=== PATIENT | male | born 1960 | race Caucasian/White ===

== ENCOUNTER 2023-07-11 12:52 | Emergency (ER) | payer OTHER, MEDICARE ==
[~2023-07-11] VITALS: Ht 172.7 cm; Wt 109.1 kg
[2023-07-11 13:13] LABS: BASOPHILS % (AUTO) 0.6 % (0-1); EOSINOPHILS # (AUTO) 0.1 X10'3 (0-0.9); EOSINOPHILS % (AUTO) 1.3 % (0-6); HEMATOCRIT 39.2 % (42.0-52.0); HEMOGLOBIN 12.9 g/dl (14.0-17.9); LYMPHOCYTES # (AUTO) 1.1 X10'3 (1.1-4.8); LYMPHOCYTES % (AUTO) 13.7 % (21-51); MEAN CORPUSCULAR HEMOGLOBIN 28.2 PG (27.0-31.0); MEAN CORPUSCULAR VOLUME 85.4 FL (78-98); MEAN PLATELET VOLUME 9.9 FL (7.4-10.4); MONOCYTES # (AUTO) 0.8 X10'3 (0-0.9); MONOCYTES % (AUTO) 10.5 % (2-12); NEUTROPHILS % (AUTO) 73.9 % (42-75); PLATELET COUNT 367 X10'3 (140-440); RED BLOOD COUNT 4.59 X10'6 (4.70-6.10); RED CELL DISTRIBUTION WIDTH 15.2 % (11.5-14.5); WHITE BLOOD COUNT 8.1 X10'3 (4.5-11.0)
[2023-07-11 13:32] VITALS: TEMP 98.1
[2023-07-11 14:24] LABS: ALANINE AMINOTRANSFERASE 17 U/L (12-78); ALBUMIN/GLOBULIN RATIO 0.8 (1.1-1.5); ALKALINE PHOSPHATASE 161 IU/L (46-116); ANION GAP 17 (8-16); ASPARTATE AMINO TRANSFERASE 7 U/L (10-37); BILIRUBIN,TOTAL 0.8 MG/DL (0.1-1.0); BLOOD UREA NITROGEN 110 MG/DL (7-18); CALCIUM 8.5 MG/DL (8.5-10.1); CHLORIDE 103 MMOL/L (99-107); CREATININE 7.35 MG/DL (0.60-1.10); GLUCOSE 179 MG/DL (70-104); POTASSIUM 4.3 MMOL/L (3.5-5.1); SODIUM 137 MMOL/L (135-145); TOTAL CARBON DIOXIDE 17.1 MMOL/L (24-32); TOTAL PROTEIN 6.6 G/DL (6.4-8.2); eCRCL 10 ML/MIN; eGFR 8 ML/MIN
[2023-07-11 14:32] LABS: PRO BRAIN NATRIURETIC PEPTIDE 1726 PG/ML (0-125)
[2023-07-11] MEDS ORDERED: normal saline 1000ML IV soln IVB ONE ×2 (16:35→17:10)
[2023-07-11 18:21] VITALS: BP 126/77; PULSE 69; RESP 18; O2SAT 98
[2023-07-11 18:45] LABS: BILIRUBIN,URINE NEGATIVE (Neg); CLARITY,URINE CLEAR (Clear); COLOR,URINE YELLOW (Yellow); GLUCOSE, URINE 250 mg/dl (Neg); KETONES,URINE NEGATIVE (Neg); LEUKOCYTE ESTERASE ,URINE NEGATIVE (Neg); NITRITES, URINE NEGATIVE (Neg); OCCULT BLOOD,URINE TRACE-INTACT (Neg); PH,URINE 5.5 (4.8-8.0); PROTEIN,URINE TRACE mg/dl (Neg); UROBILINOGEN,URINE 0.2 E.U/dL (0.2-1.0)
[2023-07-11 18:50] LABS: UA COLLECTION TYPE CLN CATCH MIDSTREAM
[2023-07-11 18:53] LABS: SQUAMOUS EPITHELIAL CELL,UR NONE SEEN /LPF (FEW)
[2023-07-11 18:56] LABS: WBC,URINE 0-4 /HPF (0-4)
[2023-07-11 19:00] LABS: BACTERIA,URINE FEW /HPF (Neg)
[2023-07-11 19:03] LABS: AMORPHOUS URATES 1+
[2023-07-11 20:11] LABS: ALANINE AMINOTRANSFERASE 17 U/L (12-78); ALBUMIN 3.3 G/DL (3.4-5.0); ALBUMIN/GLOBULIN RATIO 0.8 (1.1-1.5); ALKALINE PHOSPHATASE 173 IU/L (46-116); ANION GAP 19 (8-16); ASPARTATE AMINO TRANSFERASE 10 U/L (10-37); BILIRUBIN,TOTAL 0.6 MG/DL (0.1-1.0); BLOOD UREA NITROGEN 105 MG/DL (7-18); BUN/CREATININE RATIO 15.9 (10.0-20.0); CALCIUM 8.7 MG/DL (8.5-10.1); CHLORIDE 106 MMOL/L (99-107); CREATININE 6.61 MG/DL (0.60-1.10); GLUCOSE 145 MG/DL (70-104); POTASSIUM 4.5 MMOL/L (3.5-5.1); SODIUM 139 MMOL/L (135-145); TOTAL PROTEIN 7.2 G/DL (6.4-8.2); eCRCL 11 ML/MIN; eGFR 9 ML/MIN
[2023-07-11 20:19] LABS: TOTAL CARBON DIOXIDE 14.4 MMOL/L (24-32)
== END 2023-07-11 20:56 | disposition home or self-care (01) ==
LOC: ER 12:52
DX: R42 Dizziness and giddiness (principal); N18.4 Chronic kidney disease, stage 4 (severe); E11.22 Type 2 diabetes mellitus with diabetic chronic kidney disease; D63.1 Anemia in chronic kidney disease
CPT/HCPCS: 36415; 71045; 80053; 81001; 83880; 84484; 85025; 85379; 93005; 96360; 99285; J7030

== ENCOUNTER 2023-07-19 01:00 | Emergency (ER) | payer OTHER, MEDICARE ==
[~2023-07-19] VITALS: Ht 172.7 cm; Wt 100.0 kg
[2023-07-19 01:13] VITALS: TEMP 98.1
[2023-07-19 02:35] VITALS: O2SAT 98
[2023-07-19 03:33] LABS: ALANINE AMINOTRANSFERASE 14 U/L (12-78); ALBUMIN 3.1 G/DL (3.4-5.0); ALBUMIN/GLOBULIN RATIO 0.8 (1.1-1.5); ALKALINE PHOSPHATASE 170 IU/L (46-116); ANION GAP 12 (8-16); ASPARTATE AMINO TRANSFERASE 9 U/L (10-37); BILIRUBIN,TOTAL 0.6 MG/DL (0.1-1.0); BLOOD UREA NITROGEN 43 MG/DL (7-18); BUN/CREATININE RATIO 12.4 (10.0-20.0); CHLORIDE 106 MMOL/L (99-107); CREATININE 3.48 MG/DL (0.60-1.10); GLUCOSE 155 MG/DL (70-104); POTASSIUM 4.1 MMOL/L (3.5-5.1); SODIUM 138 MMOL/L (135-145); TOTAL CARBON DIOXIDE 19.9 MMOL/L (24-32); TOTAL PROTEIN 6.8 G/DL (6.4-8.2); eCRCL 21 ML/MIN; eGFR 18 ML/MIN
[2023-07-19 03:37] LABS: APTT 36 SECONDS (22-32); EOSINOPHILS # (AUTO) 0.2 X10'3 (0-0.9); INR 1.1 INR; MONOCYTES # (AUTO) 0.9 X10'3 (0-0.9); PROTHROMBIN TIME 11.4 SECONDS (9.0-12.0); RED CELL DISTRIBUTION WIDTH 15.4 % (11.5-14.5)
[2023-07-19 03:38] LABS: BASOPHILS # (AUTO) 0.1 X10'3 (0-0.2); BASOPHILS % (AUTO) 1.2 % (0-1); EOSINOPHILS % (AUTO) 2.9 % (0-6); HEMATOCRIT 39.3 % (42.0-52.0); HEMOGLOBIN 12.9 g/dl (14.0-17.9); LYMPHOCYTES # (AUTO) 1.4 X10'3 (1.1-4.8); LYMPHOCYTES % (AUTO) 19.5 % (21-51); MEAN CORPUSCULAR HEMOGLOBIN 28.2 PG (27.0-31.0); MEAN CORPUSCULAR HGB CONC 32.7 g/dL (33.0-36.5); MEAN CORPUSCULAR VOLUME 86.4 FL (78-98); MEAN PLATELET VOLUME 8.8 FL (7.4-10.4); MONOCYTES % (AUTO) 12.3 % (2-12); NEUTROPHILS # (AUTO) 4.8 X10'3 (1.8-7.7); NEUTROPHILS % (AUTO) 64.1 % (42-75); PLATELET COUNT 269 X10'3 (140-440); RED BLOOD COUNT 4.55 X10'6 (4.70-6.10); WHITE BLOOD COUNT 7.4 X10'3 (4.5-11.0)
[2023-07-19 05:00] VITALS: BP 112/57; PULSE 69; RESP 20
== END 2023-07-19 05:52 | disposition home or self-care (01) ==
LOC: ER 01:01
DX: R42 Dizziness and giddiness (principal); H53.8 Other visual disturbances; R53.1 Weakness; R11.0 Nausea; E11.22 Type 2 diabetes mellitus with diabetic chronic kidney disease; N18.4 Chronic kidney disease, stage 4 (severe); F17.200 Nicotine dependence, unspecified, uncomplicated; I69.392 Facial weakness following cerebral infarction; I69.328 Other speech and language deficits following cerebral infarction; Z91.199 Patient's noncompliance with other medical treatment and regimen due to unspecified reason; Z59.00 Homelessness unspecified
CPT/HCPCS: 36415; 70450; 71045; 80053; 84484; 85025; 85610; 85730; 93005; 99285

== ENCOUNTER 2023-07-22 17:11 | Emergency (ER) | payer OTHER, MEDICARE ==
[~2023-07-22] VITALS: Ht 172.7 cm; Wt 100.0 kg
--- NOTE | 2023-07-22 17:17 | NUR ---
Pt brought back to ER overflow by EMT in w/c. Pt is on a 5150 for DTS. Pt has been expressing SI with plan to cut wrists. Pt has been accepted at [facility] but it was too late to tranport him tonight. Pt will be discharged to [facility] once transportation arranged tomorrow.
[2023-07-22] MEDS ORDERED: amlodipine (18:42)
[2023-07-22] MEDS ORDERED: CITA20TA28 PO (18:42)
[2023-07-22] MEDS ORDERED: METO25TA6 PO (18:42)
[2023-07-22] MEDS ORDERED: INSU100V9 SQ (18:42)
[2023-07-22] MEDS ORDERED: CARB-226 OP (18:42)
[2023-07-22] MEDS ORDERED: jardiance PO (18:42)
[2023-07-22] MEDS ORDERED: alogliptin PO (18:42)
[2023-07-22] MEDS ORDERED: BUSP5TAB26 PO (18:42)
[2023-07-22] MEDS ORDERED: APIX5TAB3 PO (18:42)
[2023-07-22] MEDS ORDERED: PANT-47 PO (18:42)
[2023-07-22] MEDS ORDERED: AMLO5TAB16 PO (18:42)
[2023-07-22] MEDS ORDERED: BUPR150T8 PO (18:42)
[2023-07-22] MEDS ORDERED: ATOR80TA PO (18:42)
[2023-07-22] MEDS ORDERED: lisinopril PO (18:42)
--- NOTE | 2023-07-22 19:09 | NUR ---
The patient is a 62 year old male who has been homeless in the community off/on. He is unable to stay the local [address] to be a registered sex offender. He has not been taking his medications as prescribed. He denies substance abuse. He denies psychotic symptoms and none were evident during the assessment. He is suicidal with a plan to use a knife. He feels he has no reason to live. He has multiple medical problems including DM2, HTN, Hx of CVA with left sided paralysis, peripheral neuropathy. He has open wounds to the inner and outer left foot which [facility] He has an wound on his coccyx. He stated that he has irritable bowel syndrome. He reports that he was recently told he had kidney failure. He was very cooperative with the unit routine and staff.
--- NOTE | 2023-07-22 19:24 | NUR ---
PACKET SENT TO [facility]
[2023-07-22 20:08] LABS: BASOPHILS # (AUTO) 0.1 X10'3 (0-0.2); BASOPHILS % (AUTO) 1.2 % (0-1); EOSINOPHILS # (AUTO) 0.2 X10'3 (0-0.9); EOSINOPHILS % (AUTO) 3.2 % (0-6); HEMATOCRIT 39.7 % (42.0-52.0); HEMOGLOBIN 13.1 g/dl (14.0-17.9); LYMPHOCYTES # (AUTO) 1.1 X10'3 (1.1-4.8); LYMPHOCYTES % (AUTO) 19.7 % (21-51); MEAN CORPUSCULAR HEMOGLOBIN 28.2 PG (27.0-31.0); MEAN CORPUSCULAR VOLUME 85.4 FL (78-98); MEAN PLATELET VOLUME 8.3 FL (7.4-10.4); MONOCYTES # (AUTO) 0.6 X10'3 (0-0.9); MONOCYTES % (AUTO) 11.4 % (2-12); NEUTROPHILS # (AUTO) 3.4 X10'3 (1.8-7.7); NEUTROPHILS % (AUTO) 64.5 % (42-75); PLATELET COUNT 295 X10'3 (140-440); RED BLOOD COUNT 4.65 X10'6 (4.70-6.10); RED CELL DISTRIBUTION WIDTH 15.2 % (11.5-14.5); WHITE BLOOD COUNT 5.3 X10'3 (4.5-11.0)
[2023-07-22 20:20] LABS: ALANINE AMINOTRANSFERASE 9 U/L (12-78); ALBUMIN 3.1 G/DL (3.4-5.0); ALBUMIN/GLOBULIN RATIO 0.8 (1.1-1.5); ALKALINE PHOSPHATASE 186 IU/L (46-116); ANION GAP 12 (8-16); ASPARTATE AMINO TRANSFERASE 10 U/L (10-37); BILIRUBIN,TOTAL 0.5 MG/DL (0.1-1.0); BLOOD UREA NITROGEN 41 MG/DL (7-18); BUN/CREATININE RATIO 12.7 (10.0-20.0); CALCIUM 9.5 MG/DL (8.5-10.1); CHLORIDE 105 MMOL/L (99-107); CREATININE 3.22 MG/DL (0.60-1.10); GLUCOSE 187 MG/DL (70-104); POTASSIUM 4.2 MMOL/L (3.5-5.1); SALICYLATE 0.9 MG/DL (4.0-20.0); SODIUM 139 MMOL/L (135-145); TOTAL CARBON DIOXIDE 21.8 MMOL/L (24-32); eCRCL 23 ML/MIN; eGFR 20 ML/MIN
[2023-07-22 20:22] LABS: ACETAMINOPHEN < 2.0 UG/ML (10-30)
[2023-07-22] MEDS ORDERED: PEG 400/HYPROMELLOSE/GLYCERIN 15ml bottle EACHEYE PRN (21:00)
[2023-07-22] MEDS ORDERED: insulin glargine (Lantus) pen - multi-dose SQ SCH (21:00)
[2023-07-22] MEDS ORDERED: atorvastatin 20mg tablet PO SCH (21:04)
[2023-07-22] MEDS: metoprolol tartrate 50mg tablet PO SCH (21:06)
[2023-07-22] MEDS: amLODIPine 5mg tablet PO SCH (21:08)
[2023-07-22] MEDS: apixaban 5mg tablet PO SCH (21:23)
[2023-07-22] MEDS: busPIRone 5mg tablet PO SCH (21:23)
--- NOTE | 2023-07-22 21:57 | NUR ---
PACKET SENT TO [facility]
--- NOTE | 2023-07-22 21:58 | NUR ---
The patient is resting on his bed and has been pleasant and cooperative. HS snack given
[2023-07-22 22:27] LABS: URINE AMPHETAMINE SCREEN NEGATIVE (Neg); URINE BARBITUATE SCREEN NEGATIVE (Neg); URINE BENZODIAZEPINES SCREEN NEGATIVE (Neg); URINE CANNABINOID SCREEN NEGATIVE (Neg); URINE COCAINE SCREEN NEGATIVE (Neg); URINE METHADONE SCREEN NEGATIVE (Neg); URINE OPIATE SCREEN NEGATIVE (Neg); URINE PHENCYCLIDINE SCREEN NEGATIVE (Neg)
--- NOTE | 2023-07-22 22:55 | NUR ---
The patient appears to be sleeping
--- NOTE | 2023-07-23 00:45 | NUR ---
The patient appears to be sleeping
--- NOTE | 2023-07-23 03:00 | NUR ---
The patient appears to be sleeping
--- NOTE | 2023-07-23 05:20 | NUR ---
The patient appears to be sleeping
--- NOTE | 2023-07-23 05:32 | NUR ---
AM accucheck 172
[2023-07-23] MEDS ORDERED: pantoprazole 40mg Tablet.DR PO SCH (07:30)
--- NOTE | 2023-07-23 07:39 | NUR ---
Pt. resting on his left side, noted rise and fall of chest.
[2023-07-23] MEDS ORDERED: ALOGLIPTIN 12.5 MG PO SCH ×2 (08:00)
[2023-07-23] MEDS ORDERED: lisinopril 10 MG tablet PO SCH (08:00)
[2023-07-23] MEDS ORDERED: citalopram 20mg tablet PO SCH (08:00)
[2023-07-23] MEDS ORDERED: amLODIPine 5mg tablet PO SCH (08:00)
[2023-07-23] MEDS ORDERED: buPROPion SR 150mg tablet PO SCH (08:00)
[2023-07-23] MEDS ORDERED: EMPAGLIFLOZIN 25 MG TABLET PO SCH (08:00)
[2023-07-23] MEDS: busPIRone 5mg tablet PO SCH ×2 (08:28→12:48)
[2023-07-23] MEDS: apixaban 5mg tablet PO SCH (08:28)
[2023-07-23] MEDS: amLODIPine 5mg tablet PO SCH (08:30)
[2023-07-23] MEDS: metoprolol tartrate 50mg tablet PO SCH (08:30)
[2023-07-23 08:31] VITALS: BP 119/85; PULSE 85; TEMP 97.3; O2SAT 96
--- NOTE | 2023-07-23 09:08 | NUR ---
Pt eating breakfast at his bedside. No acute distess noted.
--- NOTE | 2023-07-23 09:09 | NUR ---
Mario Alberto from [place] [facility] called and declined pt, pt. not medically appropriate for their facility.
[2023-07-23 09:25] VITALS: RESP 16
--- NOTE | 2023-07-23 09:56 | NUR ---
1:1 done at bedside, pt denies SI at this time. Pt denies A/VH. Pt. pleasant and cooperative. Pt has several wounds to his body. Open wounds to his right foot, dressings in place. Order for a wound care consult has been placed. Pt ate all of his breakfast.
--- NOTE | 2023-07-23 12:00 | NUR ---
Pt eating lunch at bedside. No acute distress noted.
--- NOTE | 2023-07-23 12:30 | NUR ---
Pt being evaluated by [facility] at bedside.
--- NOTE | 2023-07-23 13:22 | NUR ---
Pt. hold is being released, pt. will be discharging.
--- NOTE | 2023-07-23 15:37 | NUR ---
Pt. watching tv at bedside, awaiting discharge paperwork.
--- NOTE | 2023-07-23 16:50 | NUR ---
Pt watching tv at bedside, awaiting cab.
== END 2023-07-23 17:15 | disposition still patient (30) ==
LOC: ER 17:12
DX: R45.851 Suicidal ideations (principal); N18.9 Chronic kidney disease, unspecified
CPT/HCPCS: 36415; 80053; 80305; 80329; 82948; 85025; 96372; 99285; J1815; A6212

== ENCOUNTER 2023-08-06 16:35 | Inpatient (IN) | payer OTHER, MEDICARE ==
[~2023-08-06] VITALS: Ht 172.7 cm; Wt 94.4 kg
[~2023-08-06 16:35] MED LIST: AMLO5TAB16 PO; APIX5TAB3 PO; ATOR80TA PO; BUPR150T8 PO; BUSP5TAB26 PO; CARB-226 OP; CITA20TA28 PO; INSU100V9 SQ; METO25TA6 PO; PANT-47 PO; alogliptin PO; jardiance PO; lisinopril PO
[2023-08-06 17:17] LABS: BASOPHILS # (AUTO) 0.1 X10'3 (0-0.2); EOSINOPHILS # (AUTO) 0.2 X10'3 (0-0.9)
[2023-08-06 17:18] LABS: BASOPHILS % (AUTO) 1.7 % (0-1); EOSINOPHILS % (AUTO) 3.1 % (0-6); HEMATOCRIT 40.2 % (42.0-52.0); LYMPHOCYTES % (AUTO) 18.6 % (21-51); MEAN CORPUSCULAR HEMOGLOBIN 27.7 PG (27.0-31.0); MEAN CORPUSCULAR HGB CONC 32.4 g/dL (33.0-36.5); MEAN CORPUSCULAR VOLUME 85.5 FL (78-98); MEAN PLATELET VOLUME 8.5 FL (7.4-10.4); MONOCYTES # (AUTO) 0.6 X10'3 (0-0.9); MONOCYTES % (AUTO) 10.5 % (2-12); NEUTROPHILS # (AUTO) 3.5 X10'3 (1.8-7.7); NEUTROPHILS % (AUTO) 66.1 % (42-75); PLATELET COUNT 308 X10'3 (140-440); WHITE BLOOD COUNT 5.3 X10'3 (4.5-11.0)
[2023-08-06 17:25] LABS: ALANINE AMINOTRANSFERASE 18 U/L (12-78); ALBUMIN 3.2 G/DL (3.4-5.0); ALBUMIN/GLOBULIN RATIO 0.9 (1.1-1.5); ALKALINE PHOSPHATASE 160 IU/L (46-116); ANION GAP 13 (8-16); ASPARTATE AMINO TRANSFERASE 12 U/L (10-37); BILIRUBIN,TOTAL 0.5 MG/DL (0.1-1.0); BLOOD UREA NITROGEN 41 MG/DL (7-18); BUN/CREATININE RATIO 9.7 (10.0-20.0); CHLORIDE 104 MMOL/L (99-107); CREATININE 4.24 MG/DL (0.60-1.10); ETHANOL < 10 MG/DL (<10); GLUCOSE 223 MG/DL (70-104); POTASSIUM 3.8 MMOL/L (3.5-5.1); SODIUM 138 MMOL/L (135-145); TOTAL CARBON DIOXIDE 21.1 MMOL/L (24-32); TOTAL PROTEIN 6.9 G/DL (6.4-8.2); eCRCL 17 ML/MIN; eGFR 14 ML/MIN
--- NOTE | 2023-08-06 19:35 | NUR ---
Patient eating dinner. No distress observed. Continue to monitor.
--- NOTE | 2023-08-06 21:07 | NUR ---
Patient sleeping on left side. No distress observed. Nonlabored respirations. Continue to monitor.
[2023-08-06] MEDS ORDERED: LISI10TA27 PO (21:26)
[2023-08-06] MEDS ORDERED: ALOG12.52 PO (21:26)
[2023-08-06] MEDS ORDERED: APIX5TAB3 PO (21:26)
[2023-08-06] MEDS ORDERED: EMPA25TA PO (22:14)
--- NOTE | 2023-08-06 23:19 | NUR ---
Patient sleeping supine with snoring respirations. No distress observed. Still pending a urine sample. Continue to monitor.
--- NOTE | 2023-08-06 23:31 | NUR ---
Dr Blake evaluating patient. No distress observed. Continue to monitor.
--- NOTE | 2023-08-07 01:03 | NUR ---
Patient re-adjusting in bed. No distress observed. Continue to monitor.
--- NOTE | 2023-08-07 02:36 | NUR ---
Patient sleeping supine. Respirations equal and nonlabored. No distress observed. Continue to monitor.
--- NOTE | 2023-08-07 04:28 | NUR ---
Patient continues to sleep. No distress observed. Continue to monitor.
--- NOTE | 2023-08-07 06:02 | NUR ---
Patient woke for vitals, then said he's not ready to stay awake yet.
[2023-08-07] MEDS: busPIRone 5mg tablet PO SCH ×3 (07:55→20:18)
[2023-08-07] MEDS: amLODIPine 5mg tablet PO SCH ×2 (07:56→20:18)
[2023-08-07] MEDS: lisinopril 10 MG tablet PO SCH (07:57)
[2023-08-07] MEDS: citalopram 20mg tablet PO SCH ×2 (07:57→20:18)
[2023-08-07] MEDS: pantoprazole 40mg Tablet.DR PO SCH (07:58)
[2023-08-07] MEDS: buPROPion SR 150mg tablet PO SCH ×2 (07:58→20:17)
[2023-08-07] MEDS: EMPAGLIFLOZIN 25 MG TABLET PO SCH (07:58)
[2023-08-07] MEDS: metoprolol tartrate 50mg tablet PO SCH ×2 (07:59→20:18)
[2023-08-07] MEDS: apixaban 5mg tablet PO SCH ×2 (07:59→20:17)
[2023-08-07] MEDS: linagliptin 5mg tablet PO SCH (08:18)
--- NOTE | 2023-08-07 08:36 | NUR ---
Patient awake and eating his breakfast meal.
[2023-08-07 08:57] LABS: URINE AMPHETAMINE SCREEN NEGATIVE (Neg); URINE BARBITUATE SCREEN NEGATIVE (Neg); URINE BENZODIAZEPINES SCREEN NEGATIVE (Neg); URINE CANNABINOID SCREEN NEGATIVE (Neg); URINE COCAINE SCREEN NEGATIVE (Neg); URINE METHADONE SCREEN NEGATIVE (Neg); URINE OPIATE SCREEN NEGATIVE (Neg); URINE PHENCYCLIDINE SCREEN NEGATIVE (Neg)
--- NOTE | 2023-08-07 09:06 | NUR ---
Patient using the [facility] call the [facility].
[2023-08-07 09:15] LABS: BILIRUBIN,URINE NEGATIVE (Neg); CLARITY,URINE CLEAR (Clear); COLOR,URINE YELLOW (Yellow); GLUCOSE, URINE >=1000 mg/dl (Neg); KETONES,URINE NEGATIVE (Neg); LEUKOCYTE ESTERASE ,URINE NEGATIVE (Neg); NITRITES, URINE NEGATIVE (Neg); OCCULT BLOOD,URINE NEGATIVE (Neg); PROTEIN,URINE 100 mg/dl (Neg); UROBILINOGEN,URINE 0.2 E.U/dL (0.2-1.0)
[2023-08-07 09:32] LABS: UA COLLECTION TYPE CLN CATCH MIDSTREAM
[2023-08-07 09:34] LABS: BACTERIA,URINE FEW /HPF (Neg); RBC,URINE NONE SEEN /HPF (0-2); SQUAMOUS EPITHELIAL CELL,UR FEW /LPF (FEW); WBC,URINE 0-4 /HPF (0-4)
--- NOTE | 2023-08-07 09:38 | NUR ---
Packet sent to [facility].
--- NOTE | 2023-08-07 10:35 | NUR ---
Patient being evaluated by [facility].
--- NOTE | 2023-08-07 12:14 | NUR ---
Patient eating his lunch meal. Denies needs. No s/sx of distress.
--- NOTE | 2023-08-07 14:12 | NUR ---
Patient has been accepted to [facility].
--- NOTE | 2023-08-07 16:18 | NUR ---
Admission Note: Pt. was admitted from the ER, transferred in a wheelchair. Pt. is on a 5150 for DTS. Per 5150: You state you are better off and are hopeless to see any other solutions in your life. Pt. scores as a high risk on the [place] Suicide Risk Assessment, but is able to contract for safety while on the unit. This was endorsed to KUSUM Wilcox and Q15min safety checks were ordered. Pt. exhibits weakness and uses a w/c, however he is able to transfer independently, fall precautions are in place. He also wears a brace to his right leg. Pt. is a diabetic and ACHS Accuchecks were ordered. Pt. has wounds, pictures taken and are in chart,and wound care consult was ordered.
[2023-08-07 16:45] VITALS: BP 115/73; PULSE 66; RESP 18; TEMP 97.5; O2SAT 98
[2023-08-07] MEDS ORDERED: mag hydrox/Alum hydrox/simeth 30ml oral suspension PO PRN (16:45)
[2023-08-07] MEDS ORDERED: magnesium hydroxide 30ml (MOM) UD suspension PO PRN (16:45)
[2023-08-07] MEDS ORDERED: loperamide 2mg capsule PO PRN (16:45)
[2023-08-07] MEDS ORDERED: acetaminophen 325mg tablet PO PRN ×2 (16:45)
[2023-08-07 16:47] VITALS: RESP 18; O2SAT 98
[2023-08-07] MEDS ORDERED: NICOTINE POLACRILEX 2 MG LOZENGE BC PRN (17:45)
[2023-08-07] MEDS ORDERED: insulin Lispro (HumaLOG) vial - multi-dose SQ SCH (18:10)
[2023-08-07] MEDS ORDERED: glucagon, human recombinant 1mg kit SUBCUT PRN (18:10)
[2023-08-07] MEDS ORDERED: dextrose 50%-water 50ml dispensing syringe IV PRN ×2 (18:10)
[2023-08-07] MEDS ORDERED: DEXTROSE 15 GM of carb/4 tabs (each vial/BOTTLE has 4 tablets) PO PRN ×2 (18:10)
[2023-08-07 19:45] VITALS: BP 121/79; PULSE 71; RESP 18; TEMP 98; O2SAT 98
[2023-08-07] MEDS: atorvastatin 20mg tablet PO SCH (20:18)
[2023-08-07] MEDS ORDERED: insulin glargine (Lantus) pen - multi-dose SQ SCH (21:00)
--- NOTE | 2023-08-08 00:31 | NUR ---
NURSING PROGRESS NOTE: Nghia Problem: Pt. was admitted from the ER, transferred in a wheelchair. Pt. is on a 5150 for DTS. Per 5150: You state you are better off and are hopeless to see any other solutions in your life. Pt. scores as a high risk on the [place] Suicide Risk Assessment, but is able to contract for safety while on the unit. Pt. exhibits weakness and uses a w/c, however he is able to transfer independently, fall precautions are in place. He also wears a brace to his right leg. Pt. is a diabetic and ACHS Accuchecks were ordered. Interventions: 1:1 assessment, therapeutic conversation, active listening, medication administration/education/monitoring, behavior monitoring and intervention as needed; provided distraction, redirection, positive reinforcement, reality orientation, gave PRN medication, and maintained Q15 minute safety checks. Response: Received pt. in his room at change of shift sitting in his wheelchair. Pt is cooperative and friendly. He states he had a terrible time while downstairs in ER overflow with no windows and no one to talk to. He states his mood is better now that he is up on our unit. His depression is mild and denies SI. He states he has IBS so he needs to be close to the bathroom. He states after he eats he usually has loose stools but thought it might be because he is homeless. Pt took all HS medications, AC BG was 157. Pt had a snack and watched TV in dining room before going to bed. Pt appears restless. Plan: Patient needing medication adjustments in a safe environment.
[2023-08-08] MEDS: citalopram 20mg tablet PO SCH ×2 (07:50→20:57)
[2023-08-08] MEDS: buPROPion SR 150mg tablet PO SCH ×2 (07:50→20:57)
[2023-08-08] MEDS: busPIRone 5mg tablet PO SCH ×3 (07:50→20:58)
[2023-08-08] MEDS: apixaban 5mg tablet PO SCH ×2 (07:50→20:57)
[2023-08-08] MEDS: nicotine 14mg patch - 24hr TD SCH (07:53)
[2023-08-08 08:00] VITALS: BP 97/65; PULSE 74; RESP 12; TEMP 97.1; O2SAT 98
[2023-08-08] MEDS: amLODIPine 5mg tablet PO SCH ×2 (08:00→20:57)
[2023-08-08] MEDS: linagliptin 5mg tablet PO SCH (08:00)
[2023-08-08] MEDS: metoprolol tartrate 50mg tablet PO SCH ×2 (08:00→20:58)
[2023-08-08] MEDS: pantoprazole 40mg Tablet.DR PO SCH (08:00)
[2023-08-08] MEDS: lisinopril 10 MG tablet PO SCH (08:00)
[2023-08-08] MEDS: EMPAGLIFLOZIN 25 MG TABLET PO SCH (08:02)
[2023-08-08 08:50] LABS: CHOL/HDL RATIO 2.1 (0.00-4.99); CHOLESTEROL 78 MG/DL (0-200); HDL CHOLESTEROL 38 MG/DL (35-60); LDL CHOLESTEROL 22 MG/DL (50-100); TRIGLYCERIDES 121 MG/DL (20-135)
[2023-08-08 09:07] LABS: HEMOGLOBIN A1C 9.1 % (4.5-6.2)
--- NOTE | 2023-08-08 09:47 | NUR ---
AMBER Soria, [facility] social work professor (ph# [phone]), called to see how Nghia is doing. She reported he is currently 20% service connected and is NOT able to utilize [facility] for terminal clerk care or rehab. She reported his [facility] doctor is concerned he may need a SNF or some sort of rehab upon discharge. Estella suggested assisting Nghia with applying for [facility] while he is at [facility]. Explained that patients don't typically discharge from [facility] to a SNF. Estella reported Nghia may be able to utilize services with [facility]. Faxed requested records to Estella. Fax# [phone] KEMAR Duncan
--- NOTE | 2023-08-08 12:03 | NUR ---
DM/malnutrition consults: Per EMR pt with T2DM, current A1c 9.1%. Pt admit for depression and SI, DM education not appropriate at this time. Pt reports 14-23 lb wt loss with decreased appetite/PO intake per malnutrition risk screen with RN. No reliable wt hx in EMR and current scaled weight is 134% IBW. Pt on a CHO controlled diet and overall eating well, documented with 100% PO intake of first three meals though refused breakfast this morning. Per EMR pt participates in snacks. Noted pt with 100% PO intake at recent visit 07/22. Pt with no documented significant decrease in muscle strength or edema. Pt appears well developed well nourished per ED report. Pt currently lacks a minimum of two criteria for malnutrition though will continue to follow and monitor s/s of malnutrition. Addendum: 08/08/23 at [address] Amended: Links added.
--- NOTE | 2023-08-08 13:24 | NUR ---
Left message with Parallon 0620 to see if [facility] can help patient sign up for Medical.
--- NOTE | 2023-08-08 16:41 | NUR ---
PRESSURE ULCER EDUCATION: DEFINITION: A pressure ulcer is an area of skin that breaks down when you stay in one position too long. The constant pressure against the skin reduces the blood flow to that area and the affected tissue dies. CAUSES: "Being bedridden or in a wheelchair "Fragile skin "Having a chronic condition, such as diabetes or vascular disease "Inability to move certain parts of your body without assistance "Older age "Incontinence of urine or stool SYMPTOMS: "A reddened area that DOES NOT turn white when pressed on - this can be the beginning of a pressure ulcer "A blister, deep sore or a crater - these can be advanced pressure ulcers FIRST AID: "Relieve the pressure on this area "Keep the area clean and dry "Call your primary doctor if you see any of the above symptoms "DO NOT massage the area "DO NOT use a donut shaped or ring shaped pillow- these actually interfere with the blood flow and cause complications PREVENTION: "Check for pressure ulcers everyday "Change position at least every two hours to relieve pressure "Use items that help relieve pressure- pillows, sheepskin, foam padding, and powders. "Keep skin clean and dry "Eat healthy well balanced meals "Exercise daily IF YOU SEE ANY OF THESE SYMPTOMS WHILE IN THE HOSPITAL - TELL YOUR NURSE IMMEDIATELY. IF YOU SEE ANY OF THESE SYMPTOMS WHILE AT HOME OR HAVE ANY QUESTIONS OR CONCERNS ABOUT PRESSURE ULCERS - CALL YOUR PRIMARY DOCTOR IMMEDIATELY. Addendum: 08/08/23 at 1641 by Jes Benavides LVN Amended: Links added.
--- NOTE | 2023-08-08 17:10 | NUR ---
NURSING PROGRESS NOTE: Problem: Pt. was admitted from the ER, transferred in a wheelchair. Pt. is on a 5150 for DTS. Per 5150: You state you are better off and are hopeless to see any other solutions in your life. Pt. scores as a high risk on the [place] Suicide Risk Assessment, but is able to contract for safety while on the unit. Pt. exhibits weakness and uses a w/c, however he is able to transfer independently, and fall precautions are in place. He also wears a brace to his right leg. Pt. is a diabetic and ACHS Accuchecks were ordered. Interventions: 1:1 assessment, therapeutic conversation, active listening, medication administration/education/monitoring, behavior monitoring and intervention as needed; provided distraction, redirection, positive reinforcement, reality orientation, and maintained Q15 minute safety checks. Response: 0600 Received pt. care report from [facility]. Pt awake and alert. He reports sleeping well last night. Pt. denies SI and mild depression reported. Pt. ate all his breakfast and lunch meals and participated in snacks and cooperative with all the care. Wound care nurse in to see pt. for f/u- new orders in place. Pt. reported brought to the ER 3 bags which contained all his belongings which we do not have them on our floor nor on the pt. inventory list. Called the ER overflow but nothing was found; [facility] aware. Notified the pt. that we will continue looking. Pt. stated, I will be without them; that is all I have. We need to follow up please BS 188mg/dl AM and 195mg/dl at noon, and 1700 191mg/dl. No hypoglycemic episodes this shift. Plan: Patient needing medication adjustments in a safe environment.
--- NOTE | 2023-08-08 17:42 | NUR ---
Held all antihypertensives this shift- KUSUM Dickens aware; states will adjust!
[2023-08-08 19:00] VITALS: RESP 16; O2SAT 99
[2023-08-08 20:00] VITALS: BP 115/67; PULSE 60; RESP 16; TEMP 97.8; O2SAT 99
[2023-08-08] MEDS: atorvastatin 20mg tablet PO SCH (20:57)
--- NOTE | 2023-08-09 00:22 | NUR ---
NURSING PROGRESS NOTE: Problem: Pt. was admitted from the ER, transferred in a wheelchair. Pt. is on a 5150 for DTS. Per 5150: You state you are better off and are hopeless to see any other solutions in your life. Pt. scores as a high risk on the [place] Suicide Risk Assessment, but is able to contract for safety while on the unit. Pt. exhibits weakness and uses a w/c, however he is able to transfer independently, and fall precautions are in place. He also wears a brace to his right leg. Pt. is a diabetic and ACHS Accuchecks were ordered. Interventions: 1:1 assessment, therapeutic conversation, active listening, medication administration/education/monitoring, behavior monitoring and intervention as needed; provided distraction, redirection, positive reinforcement, reality orientation, and maintained Q15 minute safety checks. Response: Received pt in the day room. Pt was playing Solitaire, smiling, appears happy, calm and cooperative. Pt's blood glucose is 196. No coverage needed. Pt denies all mental health symptoms at this time. Pt is medication compliant with no PRN's given. Pt uses his wheelchair d/t left side weakness from a stroke. Pt is able to transfer on his own. No behavioral issues tonight. Monitor for safety. Plan: Patient needing medication adjustments in a safe environment.
[2023-08-09 08:00] VITALS: BP 123/64; PULSE 60; RESP 18; TEMP 97.9; O2SAT 99
[2023-08-09] MEDS: busPIRone 5mg tablet PO SCH ×2 (08:15→12:31)
[2023-08-09] MEDS: apixaban 5mg tablet PO SCH ×2 (08:15→20:32)
[2023-08-09] MEDS: linagliptin 5mg tablet PO SCH (08:15)
[2023-08-09] MEDS: citalopram 20mg tablet PO SCH ×2 (08:15→20:32)
[2023-08-09] MEDS: metoprolol tartrate 50mg tablet PO SCH ×2 (08:16→20:33)
[2023-08-09] MEDS: buPROPion SR 150mg tablet PO SCH ×2 (08:16→20:32)
[2023-08-09] MEDS: pantoprazole 40mg Tablet.DR PO SCH (08:17)
[2023-08-09] MEDS: amLODIPine 5mg tablet PO SCH (08:17)
[2023-08-09] MEDS: lisinopril 10 MG tablet PO SCH (08:18)
[2023-08-09] MEDS: EMPAGLIFLOZIN 25 MG TABLET PO SCH (08:19)
[2023-08-09] MEDS: nicotine 14mg patch - 24hr TD SCH (08:19)
--- NOTE | 2023-08-09 09:02 | NUR ---
Initial: Pt admit for depression and SI. Pt seen by wound care, per note pt with an abrasion to the medial aspect of the right great toe with scabbing, a DFU to left medial 1st metatarsal head, and a stage II PI to left lateral malleolus. Pt continues on a CHO controlled diet and overall eating well, documented with average 98% PO intake of five meals with refusal of breakfast 08/08. Per EMR pt participates in snacks. Current PO intake is meeting estimated nutrient needs though pt may benefit from Jon ALLA BID to assist with wound healing, to be sent pending physician approval in EMR. LBM 08/08 per EMR. Will continue to follow and monitor need for further nutrition intervention. Recommendations: 1) Continue CHO controlled diet 2) Michael fernández BIDLD to assist with wound healing, pending physician approval in EMR 3) Bowel care PRN 4) Weekly scaled weights Addendum: 08/09/23 at [address] Amended: Links added.
[2023-08-09 14:40] LABS: THYROID STIMULATING HORMONE 0.79 ulU/ml (0.34-4.50)
[2023-08-09 15:44] LABS: HBSAG SCREEN Negative (Negative); HEP B CORE AB, IGM Negative (Negative); HEP B CORE AB, TOT Negative (Negative)
--- NOTE | 2023-08-09 16:23 | NUR ---
NURSING PROGRESS NOTE: Problem: Pt. is on a 5150 for DTS. Per 5150: You state you are better off and are hopeless to see any other solutions in your life. Interventions: Maintained a safe and supportive environment, provided clear and simple instructions, medication administration/education/monitoring, monitored behaviors and need for intervention, and maintained Q15 minute safety checks. Response: Received pt. sleeping in his room. Compliant with treatment; meds and wound care. Pt. denies SI/HI. Pt. reported brought to the ER 3 bags which contained all his belongings which we do not have them on our floor nor on the pt. inventory list. Went to the main ER and found pt's belongings in the Ambulance bay with no stickers on them. Pt acknowledges these are his belongings. NOELLE Fontaine and Eric DRAKE inventoried property and placed in pt storage. Pt showered. Plan: Patient needing medication adjustments in a safe environment. Addendum: 08/09/23 at 1722 by Samara Jesus RN Pt does not want to go on insulin at this time due to being homeless.
[2023-08-09 19:00] VITALS: RESP 18; O2SAT 98
[2023-08-09 19:44] VITALS: BP 118/70; PULSE 71; RESP 18; TEMP 97.1; O2SAT 98
[2023-08-09] MEDS: atorvastatin 20mg tablet PO SCH (20:32)
[2023-08-09] MEDS: insulin glargine (Lantus) pen - multi-dose SQ SCH (20:37)
--- NOTE | 2023-08-10 03:41 | NUR ---
NURSING PROGRESS NOTE: Problem: Pt. was admitted from the ER, transferred in a wheelchair. Pt. is on a 5150 for DTS. Per 5150: You state you are better off and are hopeless to see any other solutions in your life. Pt. scores as a high risk on the [place] Suicide Risk Assessment, but is able to contract for safety while on the unit. Pt. exhibits weakness and uses a w/c, however he is able to transfer independently, and fall precautions are in place. He also wears a brace to his right leg. Pt. is a diabetic and ACHS Accuchecks were ordered. Interventions: 1:1 assessment, therapeutic conversation, active listening, medication administration/education/monitoring, behavior monitoring and intervention as needed; provided distraction, redirection, positive reinforcement, reality orientation, and maintained Q15 minute safety checks. Response: Received pt in the day room, pt is in his wheelchair. Pts mood is good, pleasant to talk to and cooperative with treatments. Blood glucose is 186 tonight. Pt took all his HS medications and received 5 units of Lantus. Pt denies SI/HI/AVH. Pt is visible on unit, interacts well with other peers. Pt eats low carb snacks. Pts wounds on his left foot had his dressing changed. No complaints. Monitor for safety. Plan: Patient needing medication adjustments in a safe environment.
[2023-08-10 07:00] VITALS: RESP 16; O2SAT 99
[2023-08-10] MEDS: pantoprazole 40mg Tablet.DR PO SCH (07:35)
[2023-08-10] MEDS: EMPAGLIFLOZIN 25 MG TABLET PO SCH (07:35)
[2023-08-10] MEDS: apixaban 5mg tablet PO SCH ×2 (07:36→20:55)
[2023-08-10] MEDS: lisinopril 10 MG tablet PO SCH (07:36)
[2023-08-10] MEDS: buPROPion SR 150mg tablet PO SCH ×2 (07:37→20:54)
[2023-08-10] MEDS: linagliptin 5mg tablet PO SCH (07:37)
[2023-08-10] MEDS: metoprolol tartrate 50mg tablet PO SCH ×2 (07:37→20:57)
[2023-08-10] MEDS: citalopram 20mg tablet PO SCH ×2 (07:37→20:55)
[2023-08-10] MEDS: nicotine 14mg patch - 24hr TD SCH ×2 (07:38→07:45)
[2023-08-10 08:00] VITALS: BP 105/62; PULSE 83; RESP 16; TEMP 96.8; O2SAT 99
[2023-08-10 11:26] LABS: ALANINE AMINOTRANSFERASE 14 U/L (12-78); ALBUMIN 3.2 G/DL (3.4-5.0); ALBUMIN/GLOBULIN RATIO 0.9 (1.1-1.5); ALKALINE PHOSPHATASE 152 IU/L (46-116); ANION GAP 11 (8-16); ASPARTATE AMINO TRANSFERASE 11 U/L (10-37); BILIRUBIN,TOTAL 0.4 MG/DL (0.1-1.0); BLOOD UREA NITROGEN 42 MG/DL (7-18); BUN/CREATININE RATIO 13.3 (10.0-20.0); CALCIUM 9.3 MG/DL (8.5-10.1); CHLORIDE 105 MMOL/L (99-107); CREATININE 3.16 MG/DL (0.60-1.10); GLUCOSE 179 MG/DL (70-104); POTASSIUM 4.8 MMOL/L (3.5-5.1); SODIUM 139 MMOL/L (135-145); TOTAL CARBON DIOXIDE 23.5 MMOL/L (24-32); TOTAL PROTEIN 6.8 G/DL (6.4-8.2); eCRCL 23 ML/MIN; eGFR 20 ML/MIN
--- NOTE | 2023-08-10 17:38 | NUR ---
NURSING PROGRESS NOTE: Nghia Problem: Pt. is on a 5150 for DTS. Per 5150: You state you are better off and are hopeless to see any other solutions in your life. Interventions: Maintained a safe and supportive environment, provided clear and simple instructions, medication administration/education/monitoring, monitored behaviors and need for intervention, and maintained Q15 minute safety checks. Response: Received pt awake in his room talking with his roommate. Pt took morning medications cooperatively and ate breakfast in the community room. Pt had an EKG performed this am, awaiting results. Performed wound care per orders this am and applied lotion to pt's arms and legs. Pt calm and cooperative, joking around with this RN. Pt observed watching football with roommate in the community room. Performed 1:1 bedside. Pt denies SI/HI and AVH. Pt participated in snacks. Pt ate lunch in the community room. Observed pt reading in his room. Unable to take pts wound picture today, will take tomorrow with dressing change. Pt napped intermittently throughout the day. BG ac readings: 161, 135, and 141. Plan: Patient needing medication adjustments in a safe environment.
[2023-08-10 20:20] VITALS: BP 124/73; PULSE 76; RESP 16; TEMP 96.5; O2SAT 100
[2023-08-10] MEDS: atorvastatin 20mg tablet PO SCH (20:55)
[2023-08-10] MEDS: insulin glargine (Lantus) pen - multi-dose SQ SCH (20:59)
--- NOTE | 2023-08-10 23:21 | NUR ---
NURSING PROGRESS NOTE: Nghia Problem: Pt. is on a 5150 for DTS. Per 5150: You state you are better off and are hopeless to see any other solutions in your life. Interventions: Maintained a safe and supportive environment, provided clear and simple instructions, medication administration/education/monitoring, monitored behaviors and need for intervention, and maintained Q15 minute safety checks. Response: Received pt sitting in the dining room watching TV with peers. Pt pleasant and cooperative. States he is OK and just doing the best he can, denies MH symptoms. (States he is mostly depressed.) Pt accepted all treatments; BG was 221 this evening, pt received 5 units of Lantus. Pt remained in dining room through snack time. Pt appears to be sleeping, will continue to monitor. Plan: Patient needing medication adjustments in a safe environment.
[2023-08-11 07:00] VITALS: RESP 18; O2SAT 98
[2023-08-11] MEDS: EMPAGLIFLOZIN 25 MG TABLET PO SCH (07:35)
[2023-08-11] MEDS: linagliptin 5mg tablet PO SCH (07:36)
[2023-08-11] MEDS: citalopram 20mg tablet PO SCH ×2 (07:36→21:17)
[2023-08-11] MEDS: buPROPion SR 150mg tablet PO SCH ×2 (07:36→21:19)
[2023-08-11] MEDS: lisinopril 10 MG tablet PO SCH (07:37)
[2023-08-11] MEDS: metoprolol tartrate 50mg tablet PO SCH ×2 (07:37→21:20)
[2023-08-11] MEDS: pantoprazole 40mg Tablet.DR PO SCH (07:38)
[2023-08-11] MEDS: apixaban 5mg tablet PO SCH ×2 (07:38→21:18)
[2023-08-11] MEDS: nicotine 14mg patch - 24hr TD SCH (07:48)
[2023-08-11 08:00] VITALS: BP 125/79; PULSE 71; RESP 18; TEMP 97.1; O2SAT 98
--- NOTE | 2023-08-11 14:39 | NUR ---
[facility] Spoke to Levon at [facility] (ph# [phone]). He reported Nghia needs to call or check in in person at least once a week. He reported they currently do not have any rooms on the lower level to accommodate his wheelchair. Provided Nghia with the number and encouraged him to call. KEMAR Duncan
--- NOTE | 2023-08-11 17:23 | NUR ---
NURSING PROGRESS NOTE: Nghia Problem: Pt. is on a 5150 for DTS. Per 5150: You state you are better off and are hopeless to see any other solutions in your life. Interventions: Maintained a safe and supportive environment, provided clear and simple instructions, medication administration/education/monitoring, monitored behaviors and need for intervention, and maintained Q15 minute safety checks. Response: Received pt. awake in room. Pt took morning medications cooperatively and ate breakfast in the community room. Performed 1:1 bedside. Pt denies SI/HI and AVH. Performed dressing change and took weekly picture on wound, applied lotion to pts legs. Pt attended group today. Pt calm and cooperative. Pt participated in snacks. Pt ate lunch in the community room. Pt observed in bedroom chair looking out of the window. Pt requested only banana for fruit, edited dietary order. Plan: Patient needing medication adjustments in a safe environment.
[2023-08-11 19:48] VITALS: BP 138/78; PULSE 77; RESP 18; TEMP 98; O2SAT 99
[2023-08-11] MEDS: atorvastatin 20mg tablet PO SCH (21:18)
[2023-08-11] MEDS: insulin glargine (Lantus) pen - multi-dose SQ SCH (21:25)
[2023-08-11 21:46] VITALS: RESP 18; O2SAT 99
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
[2023-08-12 07:30] VITALS: BP 116/61; PULSE 98; RESP 16; TEMP 98; O2SAT 98
[2023-08-12] MEDS: buPROPion SR 150mg tablet PO SCH ×2 (07:42→20:33)
[2023-08-12] MEDS: pantoprazole 40mg Tablet.DR PO SCH (07:42)
[2023-08-12] MEDS: EMPAGLIFLOZIN 25 MG TABLET PO SCH (07:42)
[2023-08-12] MEDS: apixaban 5mg tablet PO SCH ×2 (07:42→20:33)
[2023-08-12] MEDS: linagliptin 5mg tablet PO SCH (07:43)
[2023-08-12] MEDS: citalopram 20mg tablet PO SCH ×2 (07:43→20:32)
[2023-08-12] MEDS: lisinopril 10 MG tablet PO SCH (07:43)
[2023-08-12] MEDS: metoprolol tartrate 50mg tablet PO SCH ×2 (07:43→20:33)
[2023-08-12] MEDS: nicotine 14mg patch - 24hr TD SCH (08:00)
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
--- NOTE | 2023-08-12 17:00 | NUR ---
NURSING PROGRESS NOTE: Problem: Pt. is on a 5150 for DTS. Per 5150: You state you are better off and are hopeless to see any other solutions in your life. Interventions: Maintained a safe and supportive environment, provided clear and simple instructions, medication administration/education/monitoring, monitored behaviors and need for intervention, and maintained Q15 minute safety checks. Response: RN received pt. asleep in bed at start of shift. Pt. awoke and ate breakfast and took all medications. Pt. went to group in the AM. 1:1 assessment done at bedside, pt. denies SI/HI, A/V hallucinations. Pt. reports just feeling depressed but did not want to talk about it. Wound care done per wound care order. Pt. observed watching TV in group room and is social with peers. Pt. napping intermittently in the afternoon Plan: Patient needing medication adjustments in a safe environment.
[2023-08-12 19:00] VITALS: RESP 18; O2SAT 99
[2023-08-12] MEDS: insulin glargine (Lantus) pen - multi-dose SQ SCH (20:32)
[2023-08-12] MEDS: atorvastatin 20mg tablet PO SCH (20:33)
[2023-08-12] MEDS: cyclobenzaprine 10mg tablet PO PRN (20:49)
[2023-08-12 20:55] VITALS: BP 125/86; PULSE 64; RESP 18; TEMP 97.7; O2SAT 99
--- NOTE | 2023-08-13 03:28 | NUR ---
Nursing Progress Note: Problem: Pt. was admitted from the ER, transferred in a wheelchair. Pt. is on a 5150 for DTS. Per 5150: You state you are better off and are hopeless to see any other solutions in your life. Pt. scores as a high risk on the [facility] Suicide Risk Assessment, but is able to contract for safety while on the unit. Pt. exhibits weakness and uses a w/c, however he is able to transfer independently, and fall precautions are in place. He also wears a brace to his right leg. Pt. is a diabetic and ACHS Accuchecks were ordered. Interventions: 1:1 assessment, therapeutic conversation, active listening, medication administration/education/monitoring, behavior monitoring and intervention as needed; provided distraction, redirection, positive reinforcement, reality orientation, and maintained Q15 minute safety checks. Response: received pt. in day room. Pt is watching TV with peers. Pt is visible on unit much of the evening. Pt is pleasant and cooperative with care. Pts blood sugar is 235.tonight. I shouldnt have eaten my dessert I guess. I needs a banana instead. Pt denies all MH symptoms. Pt is compliant with all HS medications and received his 5 units of Lantus. 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 Pt transfers on his own w/o issue. Monitor for safety. Plan: Patient needing medication adjustments in a safe environment.
[2023-08-13 07:30] VITALS: BP 120/63; PULSE 56; RESP 16; TEMP 98; O2SAT 99
[2023-08-13] MEDS: metoprolol tartrate 50mg tablet PO SCH ×2 (07:51→20:44)
[2023-08-13] MEDS: apixaban 5mg tablet PO SCH ×2 (07:51→20:44)
[2023-08-13] MEDS: lisinopril 10 MG tablet PO SCH (07:51)
[2023-08-13] MEDS: pantoprazole 40mg Tablet.DR PO SCH (07:51)
[2023-08-13] MEDS: buPROPion SR 150mg tablet PO SCH ×2 (07:51→20:44)
[2023-08-13] MEDS: citalopram 20mg tablet PO SCH ×2 (07:52→20:44)
[2023-08-13] MEDS: linagliptin 5mg tablet PO SCH (07:52)
[2023-08-13] MEDS: EMPAGLIFLOZIN 25 MG TABLET PO SCH (07:53)
[2023-08-13] MEDS: nicotine 14mg patch - 24hr TD SCH (08:00)
--- NOTE | 2023-08-13 12:43 | NUR ---
Reassessment: Pt continues eating well, documented with mostly 100% PO intake of meals on CHO controlled diet meeting estimated nutrient needs. ONS still pending physician approval in EMR. Recommend double protein BIDLD for additional protein, d/w dietary. LBM 08/12 per EMR. Will continue to follow and monitor need for further nutrition intervention. Recommendations: 1) Continue CHO controlled diet; double meat BIDLD 2) Vanilla Jon shake BIDLD to assist with wound healing, pending physician approval in EMR 3) Bowel care PRN 4) Weekly scaled weights Addendum: 08/13/23 at [address] Amended: Links added.
--- NOTE | 2023-08-13 17:36 | NUR ---
NURSING PROGRESS NOTE: Problem: Pt. is on a 5150 for DTS. Per 5150: You state you are better off and are hopeless to see any other solutions in your life. Interventions: Maintained a safe and supportive environment, provided clear and simple instructions, medication administration/education/monitoring, monitored behaviors and need for intervention, and maintained Q15 minute safety checks. Response: RN received pt. asleep in bed at start of shift. Pt. awoke and ate breakfast and took all medications. Pt. went to group in the AM. 1:1 assessment done at bedside, pt. denies SI/HI, A/V hallucinations. Pt. states hes feeling, good. During snack pt. became agitated when he was only allowed to have sugar free options, pt. states, I usually get whatever I want because it doesnt really effect my blood sugar. Wound care done per wound care order. Pt. observed watching TV in group room and is social with peers. Pt. napping intermittently in the afternoon. Plan: Patient needing medication adjustments in a safe environment.
[2023-08-13 19:00] VITALS: RESP 16; O2SAT 100
[2023-08-13 20:00] VITALS: BP 141/82; PULSE 70; RESP 16; TEMP 97.2; O2SAT 100
[2023-08-13] MEDS: insulin glargine (Lantus) pen - multi-dose SQ SCH (20:43)
[2023-08-13] MEDS: atorvastatin 20mg tablet PO SCH (20:44)
[2023-08-13] MEDS: cyclobenzaprine 10mg tablet PO PRN (20:45)
--- NOTE | 2023-08-14 03:40 | NUR ---
Nursing Progress Note: Problem: Pt. is on a 5150 for DTS. Per 5150: You state you are better off and are hopeless to see any other solutions in your life. Interventions: Maintained a safe and supportive environment, provided clear and simple instructions, medication administration/education/monitoring, monitored behaviors and need for intervention, and maintained Q15 minute safety checks. Response: Received pt. in his room. Pt started Im okay, are you going to stick me. Pt is joking with the ad writer. Pt is visible on unit and likes to socialize with other peers. Pt uses his wheelchair to get around on unit. Pt denies SI/HI/AVH, Blood sugar before snack is 199. Pt is medication compliant and had Lantus 5 units given at bedtime. Monitor for safety. Plan: Patient needing medication adjustments in a safe environment.
[2023-08-14 07:30] VITALS: BP 139/77; PULSE 60; RESP 16; TEMP 97.4; O2SAT 97
[2023-08-14] MEDS: nicotine 14mg patch - 24hr TD SCH (08:00)
[2023-08-14] MEDS: linagliptin 5mg tablet PO SCH (08:11)
[2023-08-14] MEDS: citalopram 20mg tablet PO SCH ×2 (08:11→20:36)
[2023-08-14] MEDS: pantoprazole 40mg Tablet.DR PO SCH (08:12)
[2023-08-14] MEDS: metoprolol tartrate 50mg tablet PO SCH ×2 (08:12→20:35)
[2023-08-14] MEDS: lisinopril 10 MG tablet PO SCH (08:12)
[2023-08-14] MEDS: EMPAGLIFLOZIN 25 MG TABLET PO SCH (08:13)
[2023-08-14] MEDS: apixaban 5mg tablet PO SCH ×2 (08:13→20:36)
[2023-08-14] MEDS: buPROPion SR 150mg tablet PO SCH ×2 (08:13→20:36)
--- NOTE | 2023-08-14 12:46 | NUR ---
RN asked provider about conflicting orders by hospitalists placing pt. on diabetic protocol vs. continuing home medications. Pt. to continue home medications.
--- NOTE | 2023-08-14 15:35 | NUR ---
CASE MANAGEMENT Ed from [facility] called to ask this Shoes Hand Sewer to Call Lana at [facility] on Friday as he spoke to her today and she reported they may have availability next week for Pt. Ed cannot call as he is going on vacation next week. Will follow up next with Lana to see if we can facilitate getting him a room at [facility]. Renata Galicia, SURGEON/PRESIDENT
--- NOTE | 2023-08-14 17:46 | NUR ---
Nursing Progress Note: Problem: Pt. is on a 5150 for DTS. Per 5150: You state you are better off and are hopeless to see any other solutions in your life. Interventions: Maintained a safe and supportive environment, provided clear and simple instructions, medication administration/education/monitoring, monitored behaviors and need for intervention, and maintained Q15 minute safety checks. Response: Pt sleeping at start of shift. Upon a.m. blood sugar check pt and pts roommate joking about RN being a vampire laughing in good fun. Pt. socializes with peers throughout the day. Pt took a few naps throughout the day in between meals. Pt has been medication compliant and has not needed any PRNs. Pt denies SI/HI/AVH, when asked how he feels today he states he feels ehhh just normal, RN asks Kind of down?, he states Yea. Pt not willing to explain more. Throughout day pt seen enjoying a movie in the day room and laughing often with peers. Pt seems to have a healthy appetite. Pt uses his wheelchair to travel around unit. Pt weight 90.1 kg today, and blood sugars were 159 before breakfast, 170 before lunch, and 115 before dinner. It was discussed with doc that pt is only going to be getting the order for Lantus at night and the oral diabetic meds but no Humalog. Plan: Patient needing medication adjustments in a safe environment.
[2023-08-14 19:00] VITALS: RESP 16; O2SAT 99
[2023-08-14 19:50] VITALS: BP 141/81; PULSE 67; RESP 12; TEMP 97.6; O2SAT 97
[2023-08-14] MEDS: insulin glargine (Lantus) pen - multi-dose SQ SCH (20:34)
[2023-08-14] MEDS: atorvastatin 20mg tablet PO SCH (20:36)
--- NOTE | 2023-08-15 02:22 | NUR ---
Nursing Progress Note: Problem: Pt. is on a 5150 for DTS. Per 5150: You state you are better off and are hopeless to see any other solutions in your life. Interventions: Maintained a safe and supportive environment, provided clear and simple instructions, medication administration/education/monitoring, monitored behaviors and need for intervention, and maintained Q15 minute safety checks. Response: Received pt. in day room, sitting in wheelchair watching TV with peers. Pt is alert and oriented x3. Pt is calm, pleasant and cooperative. Pt has a bright affect and likes to joke around. Pt. blood sugar 167 before snack. 5 units of Lantus given in right arm SQ. Pt is compliant with all his medications. No PRNs given. Pt denies SI/HI/AH/VH. Pt is social with peers and staff. Monitor for safety. Plan: Patient needing medication adjustments in a safe environment.
[2023-08-15 07:00] VITALS: RESP 18; O2SAT 100
[2023-08-15] MEDS: EMPAGLIFLOZIN 25 MG TABLET PO SCH (08:32)
[2023-08-15] MEDS: nicotine 14mg patch - 24hr TD SCH (08:32)
[2023-08-15] MEDS: pantoprazole 40mg Tablet.DR PO SCH (08:33)
[2023-08-15] MEDS: citalopram 20mg tablet PO SCH ×2 (08:33→21:26)
[2023-08-15] MEDS: lisinopril 10 MG tablet PO SCH (08:33)
[2023-08-15] MEDS: buPROPion SR 150mg tablet PO SCH ×2 (08:33→21:26)
[2023-08-15] MEDS: linagliptin 5mg tablet PO SCH (08:33)
[2023-08-15] MEDS: apixaban 5mg tablet PO SCH ×2 (08:33→21:26)
[2023-08-15] MEDS: metoprolol tartrate 50mg tablet PO SCH ×2 (08:34→21:26)
[2023-08-15 08:46] VITALS: BP 153/81; PULSE 64; RESP 18; TEMP 96.5; O2SAT 100
--- NOTE | 2023-08-15 17:41 | NUR ---
Nursing Progress Note: Problem: Pt. is on a 5150 for DTS. Per 5150: You state you are better off and are hopeless to see any other solutions in your life. Interventions: Maintained a safe and supportive environment, provided clear and simple instructions, medication administration/education/monitoring, monitored behaviors and need for intervention, and maintained Q15 minute safety checks. Response: Patient sleeping in bed at change of shift. Patient awakens for breakfast and joins peers in the dining room with his peers. Patient is very social today. Patient played cards with 3 nursing students until 13:00 and then ate lunch and went and laid down for a long nap. Patient appeared happy and was joking with the girls. Patient denies all mental health symptoms at this time. Patient is medication compliant. Patient gets around unit via his W/C. BGM: 152, 137, 139 Plan: Patient needing medication adjustments in a safe environment.
[2023-08-15 19:00] VITALS: RESP 16; O2SAT 99
[2023-08-15 19:53] VITALS: BP 123/74; PULSE 68; RESP 16; TEMP 98.6; O2SAT 99
[2023-08-15] MEDS: atorvastatin 20mg tablet PO SCH (21:26)
[2023-08-15] MEDS: insulin glargine (Lantus) pen - multi-dose SQ SCH (21:28)
--- NOTE | 2023-08-15 23:52 | NUR ---
Nursing Progress Note: Problem: Pt. is on a 5150 for DTS. Per 5150: You state you are better off and are hopeless to see any other solutions in your life. Interventions: Maintained a safe and supportive environment, provided clear and simple instructions, medication administration/education/monitoring, monitored behaviors and maintained Q15 minute safety checks. Response: Patient is pleasant and cooperative with care; compliant with medication. Patient denied SI, HI, A/VH; no apparent delusions expressed. Patient is social with peers. He briefly participated in HS snack prior to bed; observed sleeping and does not appear to be having difficulty. HS BS: 164 Plan: Continues to require a safe and therapeutic environment with possible medication adjustments. Addendum: 08/16/23 at 0244 by Karolina Giang RN I have reviewed and agree with all interventions, assessments performed and documented by Emilia BAPTISTE.
[2023-08-16 07:00] VITALS: RESP 16; O2SAT 98
[2023-08-16 07:46] VITALS: BP 124/67; PULSE 65
[2023-08-16] MEDS: metoprolol tartrate 50mg tablet PO SCH ×2 (07:47→20:08)
[2023-08-16] MEDS: pantoprazole 40mg Tablet.DR PO SCH (07:47)
[2023-08-16] MEDS: apixaban 5mg tablet PO SCH ×2 (07:47→20:07)
[2023-08-16] MEDS: EMPAGLIFLOZIN 25 MG TABLET PO SCH (07:48)
[2023-08-16] MEDS: lisinopril 10 MG tablet PO SCH (07:48)
[2023-08-16] MEDS: citalopram 20mg tablet PO SCH (07:48)
[2023-08-16] MEDS: buPROPion SR 150mg tablet PO SCH ×2 (07:48→15:24)
[2023-08-16] MEDS: linagliptin 5mg tablet PO SCH (07:48)
--- NOTE | 2023-08-16 17:02 | NUR ---
Nursing Progress Note: Nghia Problem: Pt. is on a 5150 for DTS. Per 5150: You state you are better off and are hopeless to see any other solutions in your life. Interventions: Maintained a safe and supportive environment, provided clear and simple instructions, medication administration/education/monitoring, monitored behaviors and need for intervention, and maintained Q15 minute safety checks. Response: Received pt awake in room. Pt observed smiling and joking. Pt took all medications cooperatively and ate breakfast in the community room. Pt observed watching TV in the community room. Performed 1:1 bedside. Pt denies SI/HI and AVH. Performed ordered wound care. Pt tolerated cooperatively. Pt participated in snacks. Medication adjustments made today by Dr. Jesus for antidepressants. Pt appearance is well groomed. Calm and cooperative with staff. Plan: Patient needing medication adjustments in a safe environment.
[2023-08-16 19:28] VITALS: BP 120/73; PULSE 69; RESP 16; TEMP 97.4; O2SAT 100
[2023-08-16] MEDS: atorvastatin 20mg tablet PO SCH (20:08)
[2023-08-16] MEDS: insulin glargine (Lantus) pen - multi-dose SQ SCH (20:14)
--- NOTE | 2023-08-17 00:09 | NUR ---
Nursing Progress Note: Nghia Problem: Pt. is on a 5150 for DTS. Per 5150: You state you are better off and are hopeless to see any other solutions in your life. Interventions: Maintained a safe and supportive environment, provided clear and simple instructions, medication administration/education/monitoring, monitored behaviors and need for intervention, and maintained Q15 minute safety checks. Response: Received pt in the dining room watching TV with peers. Pt polite and cooperative with care. He states he had a good day and was able to watch some funny movies today. He stated that the movies help calm his mind. States he has mild depression, denies all other MH symptoms. Pt participated in snacks and took all HS medication without issue. Pt currently sleeping, will continue to monitor. Plan: Patient needing medication adjustments in a safe environment.
[2023-08-17 07:00] VITALS: RESP 18; O2SAT 99
[2023-08-17] MEDS: apixaban 5mg tablet PO SCH ×2 (07:47→20:05)
[2023-08-17] MEDS: EMPAGLIFLOZIN 25 MG TABLET PO SCH (07:47)
[2023-08-17] MEDS: buPROPion SR 150mg tablet PO SCH ×2 (07:48→13:11)
[2023-08-17] MEDS: metoprolol tartrate 50mg tablet PO SCH ×2 (07:48→20:05)
[2023-08-17] MEDS: linagliptin 5mg tablet PO SCH (07:49)
[2023-08-17] MEDS: citalopram 20mg tablet PO SCH (07:49)
[2023-08-17] MEDS: duloxetine 30mg CAPSULE.DR PO SCH (07:49)
[2023-08-17] MEDS: pantoprazole 40mg Tablet.DR PO SCH (07:49)
[2023-08-17] MEDS: lisinopril 10 MG tablet PO SCH (07:49)
[2023-08-17 08:04] VITALS: BP 134/65; PULSE 61; RESP 18; TEMP 98.6; O2SAT 99
--- NOTE | 2023-08-17 16:35 | NUR ---
Nursing Progress Note: Nghia Problem: Pt. is on a 5150 for DTS. Per 5150: You state you are better off and are hopeless to see any other solutions in your life. Interventions: Maintained a safe and supportive environment, provided clear and simple instructions, medication administration/education/monitoring, monitored behaviors and need for intervention, and maintained Q15 minute safety checks. Response: Received pt asleep. Pt took morning medications cooperatively and ate meals in the community room. Pt observed watching TV. Performed 1:1 bedside. Pt denies SI/HI and AVH. Pt states I have fear about whats going to happen next. Pt states that he is feeling better today. Performed ordered wound care. Calm and cooperative with staff. Pt participated in snacks, observed laughing and joking with his roommate. Plan: Patient needing medication adjustments in a safe environment.
[2023-08-17 19:30] VITALS: BP 129/73; PULSE 59; RESP 17; TEMP 97.3; O2SAT 96
[2023-08-17] MEDS: NUT.TX.GLUC.INTOLER,LAC-FR,SOY (GLUCERNA) 237 ML PO SCH (20:00)
[2023-08-17] MEDS: atorvastatin 20mg tablet PO SCH (20:05)
[2023-08-17] MEDS: insulin glargine (Lantus) pen - multi-dose SQ SCH (20:06)
--- NOTE | 2023-08-18 00:35 | NUR ---
Nursing Progress Note: Nghia Problem: Pt. is on a 5150 for DTS. Per 5150: You state you are better off and are hopeless to see any other solutions in your life. Interventions: Maintained a safe and supportive environment, provided clear and simple instructions, medication administration/education/monitoring, monitored behaviors and need for intervention, and maintained Q15 minute safety checks. Response: Received pt in the dining room watching TV with peers. Pt pleasant and cooperative with care, joking with staff and peers. He denies MH symptoms and states he is alright. He participates with snack time and takes all HS medications without issue. Pt is currently sleeping, will continue to monitor. Plan: Patient needing medication adjustments in a safe environment.
[2023-08-18 07:00] VITALS: RESP 18; O2SAT 97
[2023-08-18] MEDS: EMPAGLIFLOZIN 25 MG TABLET PO SCH (07:32)
[2023-08-18] MEDS: metoprolol tartrate 50mg tablet PO SCH ×2 (07:33→21:03)
[2023-08-18] MEDS: linagliptin 5mg tablet PO SCH (07:33)
[2023-08-18] MEDS: duloxetine 30mg CAPSULE.DR PO SCH (07:33)
[2023-08-18] MEDS: citalopram 20mg tablet PO SCH (07:33)
[2023-08-18] MEDS: apixaban 5mg tablet PO SCH ×2 (07:34→21:03)
[2023-08-18] MEDS: buPROPion SR 150mg tablet PO SCH ×2 (07:34→13:49)
[2023-08-18] MEDS: lisinopril 10 MG tablet PO SCH (07:34)
[2023-08-18] MEDS: lansoprazole 15mg solutab PO SCH (07:35)
[2023-08-18 08:00] VITALS: BP 112/67; PULSE 61; RESP 18; TEMP 98.3; O2SAT 97
[2023-08-18] MEDS: NUT.TX.GLUC.INTOLER,LAC-FR,SOY (GLUCERNA) 237 ML PO SCH ×2 (08:00→20:00)
[2023-08-18 08:08] LABS: ALANINE AMINOTRANSFERASE 16 U/L (12-78); ALBUMIN 3.2 G/DL (3.4-5.0); ALBUMIN/GLOBULIN RATIO 0.9 (1.1-1.5); ALKALINE PHOSPHATASE 140 IU/L (46-116); ANION GAP 8 (8-16); ASPARTATE AMINO TRANSFERASE 12 U/L (10-37); BILIRUBIN,TOTAL 0.3 MG/DL (0.1-1.0); BLOOD UREA NITROGEN 67 MG/DL (7-18); CALCIUM 9.3 MG/DL (8.5-10.1); CHLORIDE 105 MMOL/L (99-107); CREATININE 3.53 MG/DL (0.60-1.10); GLUCOSE 179 MG/DL (70-104); POTASSIUM 4.7 MMOL/L (3.5-5.1); SODIUM 138 MMOL/L (135-145); TOTAL CARBON DIOXIDE 24.6 MMOL/L (24-32); TOTAL PROTEIN 6.9 G/DL (6.4-8.2); eCRCL 21 ML/MIN; eGFR 18 ML/MIN
[2023-08-18 08:38] LABS: BASOPHILS # (AUTO) 0.1 X10'3 (0-0.2); BASOPHILS % (AUTO) 1.8 % (0-1); EOSINOPHILS # (AUTO) 0.2 X10'3 (0-0.9); EOSINOPHILS % (AUTO) 2.7 % (0-6); HEMATOCRIT 40.4 % (42.0-52.0); HEMOGLOBIN 13.2 g/dl (14.0-17.9); LYMPHOCYTES # (AUTO) 1.3 X10'3 (1.1-4.8); MEAN CORPUSCULAR HEMOGLOBIN 28.1 PG (27.0-31.0); MEAN CORPUSCULAR HGB CONC 32.6 g/dL (33.0-36.5); MEAN CORPUSCULAR VOLUME 85.9 FL (78-98); MONOCYTES # (AUTO) 0.7 X10'3 (0-0.9); MONOCYTES % (AUTO) 10.8 % (2-12); NEUTROPHILS # (AUTO) 4.1 X10'3 (1.8-7.7); NEUTROPHILS % (AUTO) 64.7 % (42-75); PLATELET COUNT 301 X10'3 (140-440); RED BLOOD COUNT 4.71 X10'6 (4.70-6.10); RED CELL DISTRIBUTION WIDTH 15.1 % (11.5-14.5); WHITE BLOOD COUNT 6.3 X10'3 (4.5-11.0)
--- NOTE | 2023-08-18 12:22 | NUR ---
CASE MANAGEMENT Placed a call to Lana at [facility] this morning. She reported she is working on finding something for Pt. and would need me to call her back tomorrow morning (Friday) once she has a better overview of her bed situation. Renata Galicia, CAMPUS SECURITY DIRECTOR
--- NOTE | 2023-08-18 16:58 | NUR ---
Nursing Progress Note: Nghia Problem: Pt. is on a 5150 for DTS. Per 5150: You state you are better off and are hopeless to see any other solutions in your life. Interventions: Maintained a safe and supportive environment, provided clear and simple instructions, medication administration/education/monitoring, monitored behaviors and need for intervention, and maintained Q15 minute safety checks. Response: Received pt awake in room. Pt took morning medications cooperatively and ate meals in the community room. Performed 1:1 bedside. Pt denies SI/HI and AVH. Performed ordered wound care. Pt requested to have double salad instead of carbs, request faxed to dietary. Pt calm and cooperative with staff, enjoys joking with this RN. Observed watching tv in the community room, napping in bedroom, and interacting with peers. Pt appearance well groomed, showered today. Plan: Patient needing medication adjustments in a safe environment.
[2023-08-18 19:00] VITALS: RESP 18; O2SAT 97
[2023-08-18 20:00] VITALS: BP 140/83; PULSE 68; RESP 18; TEMP 97.7; O2SAT 97
[2023-08-18] MEDS: atorvastatin 20mg tablet PO SCH (21:02)
[2023-08-18] MEDS: insulin glargine (Lantus) pen - multi-dose SQ SCH (21:18)
--- NOTE | 2023-08-19 03:48 | NUR ---
Nursing Progress Note: Nghia Problem: Pt. is on a 5150 for DTS. Per 5150: You state you are better off and are hopeless to see any other solutions in your life. Interventions: Maintained a safe and supportive environment, provided clear and simple instructions, medication administration/education/monitoring, monitored behaviors and need for intervention, and maintained Q15 minute safety checks. Response: Received pt enjoying television in the day room. Pt engages with scientific technical writer and peers well. Pt states he is depressed due to minimal options. He reports his present medical conditions including being a sex offender. It has been very difficult finding housing that will accept him relaed to his past decisions. He reports 2 x SA. He discloses his history very openly. Wound care performed day shift. He enjoys reading in his room before sleeping. He states he gets about 6 hours a night. Plan: Patient needing medication adjustments in a safe environment.
[2023-08-19 07:30] VITALS: RESP 18; O2SAT 99
[2023-08-19] MEDS: lansoprazole 15mg solutab PO SCH (07:44)
[2023-08-19] MEDS: buPROPion SR 150mg tablet PO SCH ×2 (07:44→14:15)
[2023-08-19] MEDS: duloxetine 30mg CAPSULE.DR PO SCH (07:44)
[2023-08-19] MEDS: metoprolol tartrate 50mg tablet PO SCH ×2 (07:44→21:23)
[2023-08-19] MEDS: EMPAGLIFLOZIN 25 MG TABLET PO SCH ×2 (07:44→19:13)
[2023-08-19] MEDS: apixaban 5mg tablet PO SCH ×2 (07:45→21:23)
[2023-08-19] MEDS: linagliptin 5mg tablet PO SCH ×2 (07:45→19:10)
[2023-08-19] MEDS: lisinopril 10 MG tablet PO SCH ×2 (07:45→19:12)
[2023-08-19 08:00] VITALS: BP 121/74; PULSE 70; RESP 18; TEMP 98.8; O2SAT 99
[2023-08-19] MEDS: NUT.TX.GLUC.INTOLER,LAC-FR,SOY (GLUCERNA) 237 ML PO SCH (08:00)
[2023-08-19 12:25] LABS: ALBUMIN 3.4 G/DL (3.4-5.0); ANION GAP 8 (8-16); BLOOD UREA NITROGEN 76 MG/DL (7-18); BUN/CREATININE RATIO 20.9 (10.0-20.0); CALCIUM 9.4 MG/DL (8.5-10.1); CHLORIDE 103 MMOL/L (99-107); CREATININE 3.63 MG/DL (0.60-1.10); GLUCOSE 185 MG/DL (70-104); POTASSIUM 5.6 MMOL/L (3.5-5.1); SODIUM 134 MMOL/L (135-145); TOTAL CARBON DIOXIDE 23.4 MMOL/L (24-32); eCRCL 20 ML/MIN; eGFR 17 ML/MIN
--- NOTE | 2023-08-19 13:46 | NUR ---
Reassessment: Pt continues eating well, documented with mostly 100% PO intake of meals. Noted pt documented to have refused breakfast this morning though also documented with 45 g CHO intake, unsure of accuracy. Noted a Glucerna was ordered BID however RD recommends a Jon shake BID rather than Glucerna for wound healing, d/w RN. Pt now with RD recommended ONS available. LBM 08/18 per EMR. Will continue to follow and monitor need for further nutrition intervention. Recommendations: 1) Continue CHO controlled diet; double meat BIDLD 2) Vanilla Jon shake BIDBD to assist with wound healing 3) Bowel care PRN 4) Weekly scaled weights Addendum: 08/19/23 at [address] Amended: Links added.
--- NOTE | 2023-08-19 17:54 | NUR ---
Nursing Progress Note: Nghia Problem: Pt. is on a 5150 for DTS. Per 5150: You state you are better off and are hopeless to see any other solutions in your life. Interventions: Maintained a safe and supportive environment, provided clear and simple instructions, medication administration/education/monitoring, monitored behaviors and need for intervention, and maintained Q15 minute safety checks. Response: RN received pt. asleep in bed at start of shift. Pt. is on accu checks AC and HS. Pt. took all his mediations and ate all his meals in the community room. Pt. observed in the community room most of the day watching movies. 1:1 done in community room. Pt. denies SI/HI, A/V hallucinations but continues to report depression and anxiety r/t to his housing situation. Wound care done per wound care orders. Plan: Patient needing medication adjustments in a safe environment.
[2023-08-19 19:00] VITALS: RESP 18; O2SAT 99
--- NOTE | 2023-08-19 19:13 | NUR ---
Patient has a K of 5.6. Dr. Barragan notified. He ordered to hold AM Lisinopril, Tradjenta, Jardiance and repeat CMP. Order read back.
[2023-08-19 20:00] VITALS: BP 137/73; PULSE 68; RESP 18; TEMP 97.5; O2SAT 99
[2023-08-19] MEDS: JUVEN Shake w/Arg/Glut/Ca2+Bmb (Juven 19.3gm) pkt 240ml PO SCH (20:00)
[2023-08-19] MEDS: atorvastatin 20mg tablet PO SCH (21:22)
[2023-08-19] MEDS: insulin glargine (Lantus) pen - multi-dose SQ SCH (21:27)
--- NOTE | 2023-08-20 00:27 | NUR ---
Nursing Progress Note: Nghia Problem: Pt. is on a 5150 for DTS. Per 5150: You state you are better off and are hopeless to see any other solutions in your life. Interventions: Maintained a safe and supportive environment, provided clear and simple instructions, medication administration/education/monitoring, monitored behaviors and need for intervention, and maintained Q15 minute safety checks. Response: Received pt enjoying television in the day room. Patient has a K of 5.6. Dr. Barragan notified. He ordered to hold AM Lisinopril, Tradjenta, Jardiance and repeat CMP. Order read back. Dr. Hamilton updated. No palpitations noted. Pt updated on MD plan of care. Pt concerned about medciations that will be held. Restaurant And Bar Manager educated patient on hyperkalemia vs hyperglycemia prioritization. He was receptive. Patient is depressed about housing situation. He tries to put on best attitude and use humor. Pt compliant with all medications. Plan: Patient needing medication adjustments in a safe environment. Addendum: 08/20/23 at 0540 by Elvin Vazquez LVN, LVN Late entry: passive S/I noted with depressive thought content.
--- NOTE | 2023-08-20 05:18 | NUR ---
GRINDING MACHINE OPERATOR AUTOMATIC documentation: I have reviewed and agree with all interventions, assessments performed and documented by Elvin BAPTISTE.
[2023-08-20 07:00] VITALS: RESP 16; O2SAT 97
[2023-08-20] MEDS: apixaban 5mg tablet PO SCH ×2 (07:30→20:18)
[2023-08-20] MEDS: duloxetine 30mg CAPSULE.DR PO SCH (07:30)
[2023-08-20] MEDS: lansoprazole 15mg solutab PO SCH (07:31)
[2023-08-20] MEDS: metoprolol tartrate 50mg tablet PO SCH ×2 (07:31→20:19)
[2023-08-20] MEDS: buPROPion SR 150mg tablet PO SCH ×2 (07:31→16:07)
[2023-08-20] MEDS: JUVEN Shake w/Arg/Glut/Ca2+Bmb (Juven 19.3gm) pkt 240ml PO SCH (07:38)
[2023-08-20 08:00] VITALS: BP 144/79; PULSE 59; RESP 16; TEMP 98; O2SAT 97
[2023-08-20 08:37] LABS: ALANINE AMINOTRANSFERASE 13 U/L (12-78); ALBUMIN 3.2 G/DL (3.4-5.0); ALBUMIN/GLOBULIN RATIO 0.9 (1.1-1.5); ALKALINE PHOSPHATASE 134 IU/L (46-116); ANION GAP 8 (8-16); ASPARTATE AMINO TRANSFERASE 11 U/L (10-37); BILIRUBIN,TOTAL 0.4 MG/DL (0.1-1.0); BLOOD UREA NITROGEN 75 MG/DL (7-18); BUN/CREATININE RATIO 22.9 (10.0-20.0); CALCIUM 9.6 MG/DL (8.5-10.1); CHLORIDE 106 MMOL/L (99-107); CREATININE 3.27 MG/DL (0.60-1.10); GLUCOSE 176 MG/DL (70-104); POTASSIUM 5.3 MMOL/L (3.5-5.1); SODIUM 136 MMOL/L (135-145); TOTAL CARBON DIOXIDE 21.9 MMOL/L (24-32); TOTAL PROTEIN 6.6 G/DL (6.4-8.2); eCRCL 23 ML/MIN; eGFR 19 ML/MIN
--- NOTE | 2023-08-20 16:43 | NUR ---
DIABETIC FOOT CARE EDUCATION PROVIDED BY WOUND CARE * Wash your feet daily with lukewarm water and soap. * Dry your feet well, especially between the toes. * Keep the skin moisturized with lotion, but do not apply it between the toes. * Check your feet for blisters, cuts or sores. * Use an emery board to shape your toenails even with the ends of your toes. * Change daily into clean, soft socks or stockings, not too big or too small. * Keep your feet warm and dry. * Preferably wear special padded socks and shoes that fit well. * Never walk barefoot indoors or outdoors. * Examine your shoes everyday for cracks, ubaldo, nails or anything that could hurt your feet. * Tell your doctor if you find any of these problems or have any concerns after examining your feet. Addendum: 08/20/23 at 1643 by Jes Benavides LVN Amended: Links added.
--- NOTE | 2023-08-20 17:28 | NUR ---
Nursing Progress Note: Nghia Problem: Pt. is on a 5150 for DTS. Per 5150: You state you are better off and are hopeless to see any other solutions in your life. Interventions: Maintained a safe and supportive environment, provided clear and simple instructions, medication administration/education/monitoring, monitored behaviors and need for intervention, and maintained Q15 minute safety checks. Response: Received Pt in bed sleeping w/o distress at the beginning of this shift. Pt was cooperative with vitals and woke for the day. Pt is smiling and friendly and cooperative with care. AM BS = 159. Before lunch = 171 and befor dinner = 119. Pt was put on renal diet today and supplemental shakes with meals were dcd. Pt was cooperative with meds and spent time watching movies in community room and looking out the window and reading in his room. Pt. denies SI/HI, A/V hallucinations but is still anxious and depressed when speaking about housing. Wound care was done by wound care nurse today. Plan: Patient needing medication adjustments in a safe environment.
[2023-08-20 19:11] VITALS: RESP 16; O2SAT 97
[2023-08-20 19:49] VITALS: BP 113/70; PULSE 60; RESP 14; TEMP 98.2; O2SAT 91
[2023-08-20] MEDS: atorvastatin 20mg tablet PO SCH (20:19)
[2023-08-20] MEDS: insulin glargine (Lantus) pen - multi-dose SQ SCH (20:48)
--- NOTE | 2023-08-20 22:29 | NUR ---
Nursing Progress Note: Nghia Problem: Pt. is on a 5150 for DTS. Per 5150: You state you are better off and are hopeless to see any other solutions in your life. Interventions: Maintained a safe and supportive environment, provided clear and simple instructions, medication administration/education/monitoring, monitored behaviors and need for intervention, and maintained Q15 minute safety checks. Response: Pt was in group room watching tv at change of shift. Pt is pleasant and jovial. Pt denies s/i. Pt is aware his diet has been changed to renal diet. Pt is concerned about where he will go when he leaves. Pts HS BS was 167 so he decided to not have snacks this evening. Pt declined wound care stating he already had it done today. Pt spent time reading in his room before taking HS meds and going to sleep. Plan: Patient needing medication adjustments in a safe environment.
[2023-08-21 07:00] VITALS: RESP 16; O2SAT 97
[2023-08-21 08:00] VITALS: BP 131/64; PULSE 61; RESP 16; TEMP 96.9; O2SAT 97
[2023-08-21 08:06] LABS: ALBUMIN 3.3 G/DL (3.4-5.0); ANION GAP 7 (8-16); BLOOD UREA NITROGEN 78 MG/DL (7-18); BUN/CREATININE RATIO 24.5 (10.0-20.0); CALCIUM 9.6 MG/DL (8.5-10.1); CHLORIDE 105 MMOL/L (99-107); CREATININE 3.19 MG/DL (0.60-1.10); GLUCOSE 185 MG/DL (70-104); POTASSIUM 5.2 MMOL/L (3.5-5.1); SODIUM 135 MMOL/L (135-145); TOTAL CARBON DIOXIDE 23.5 MMOL/L (24-32); eCRCL 23 ML/MIN; eGFR 20 ML/MIN
[2023-08-21] MEDS ORDERED: MESSAGE TO PHARMACY PO ONE (08:30)
[2023-08-21] MEDS: apixaban 5mg tablet PO SCH (08:44)
[2023-08-21] MEDS: duloxetine 30mg CAPSULE.DR PO SCH (08:44)
[2023-08-21] MEDS: lisinopril 10 MG tablet PO SCH (08:45)
[2023-08-21] MEDS: metoprolol tartrate 50mg tablet PO SCH ×2 (08:45→20:25)
[2023-08-21] MEDS: buPROPion SR 150mg tablet PO SCH ×2 (08:46→14:58)
[2023-08-21] MEDS: lansoprazole 15mg solutab PO SCH (08:46)
--- NOTE | 2023-08-21 09:00 | NUR ---
Pt's oral diabetic medications were discontinued by Dr. Hamilton due to hyperkalemia and he was placed on the diabetic protocol. Per Dr. Hamilton, pt. is to be kept at Level II of the protocol. Pt. had another BMP completed and his potassium level was 5.2, this was endorsed to Dr. Hamilton and no new orders were received. However, Dr. Hamilton would like the hospitalist to address pt's potassium, GFR, and possibly give a nephrology refferral when seen this shift. Will endorse to Dr. Campbell who is scheduled to see pt' today. Addendum: 08/21/23 at 1231 by Angeles Thomas RN Pt's Lisinopril was also discontinued per Dr. Hamilton due to hyperkalemia.
[2023-08-21] MEDS: insulin Lispro (HumaLOG) vial - multi-dose SQ SCH ×2 (09:17→13:45)
[2023-08-21] MEDS: normal saline 1000ml 1,000 ML IV SCH (16:00)
--- NOTE | 2023-08-21 17:53 | NUR ---
Dr. Campbell ordered normal saline at 50mL/hour. This video game script writer attempted to start an IV in pt's right antecubital area and hand without success. Finally, another nurse was able to start a 22 gauge IV in pt's right hand, IV is patent and no infiltration noted, procedure was tolerated well. Pt. is sitting up in the Group Room at this time with fluid infusing, he is within direct line of sight of staff for safety precautions.
--- NOTE | 2023-08-21 17:57 | NUR ---
Nursing Progress Note: Problem : Pt. is on a 5150 for DTS. Per 5150: You state you are better off and are hopeless to see any other solutions in your life. Interventions : Introduced self and established rapport, maintained a safe and supportive environment, ensured contract for safety, provided clear and simple instructions, maintained Accuchecks and obtained an order for insulin, monitored labs and endorsed to the MD, and maintained Q 15min safety checks. Response : Received pt. sleeping in bed at the beginning of the shift, he was awoken to attend breakfast in the Group Room, and afterwards remained up watching TV and interacting appropriately with others throughout the shift. 1:1 was completed later at bedside, pt. presents as cooperative and frequently jokes with staff. He denies any S/I, H/I, A/V/WINSLOW, and no delusional statements were made. Pt. does endorse some anxiety r/t to his desire to discharge and is hoping to get into [facility]. Pt's laughter appears to be incongruent with his affect which is blunted at times, and he may be minimizing any mental health s/s. Plan : Pt. continues to require medication adjustments and a safe and supportive environment.
[2023-08-21 19:00] VITALS: RESP 18; O2SAT 100
[2023-08-21 19:44] VITALS: BP 125/72; PULSE 63; RESP 18; TEMP 98.5; O2SAT 100
[2023-08-21] MEDS: atorvastatin 20mg tablet PO SCH (20:25)
[2023-08-21] MEDS: heparin, porcine 5000 units/ml vial SQ SCH (20:26)
[2023-08-21] MEDS: insulin glargine (Lantus) pen - multi-dose SQ SCH (20:30)
--- NOTE | 2023-08-22 01:04 | NUR ---
Nursing Progress Note: Nghia Problem: Pt. is on a 5150 for DTS. Per 5150: You state you are better off and are hopeless to see any other solutions in your life. Interventions: Maintained a safe and supportive environment, provided clear and simple instructions, medication administration/education/monitoring, monitored behaviors and need for intervention, and maintained Q15 minute safety checks. Response: Received pt. sitting in the community room eating dinner at change of shift. pt. is friendly and cooperative. Pt. denies SI/HI/AH/VH. Pts. HS BS was 177. Pt. states wound care was provided during the day . Pt. watched TV for a while and returned to his room to read before going to sleep. LOS at bedside. Plan: Patient needing medication adjustments in a safe environment.
[2023-08-22 07:00] VITALS: RESP 16; O2SAT 98
[2023-08-22 07:49] VITALS: BP 126/72; PULSE 60; RESP 16; TEMP 97.3; O2SAT 98
[2023-08-22] MEDS ORDERED: duloxetine 30mg CAPSULE.DR PO SCH (08:00)
[2023-08-22] MEDS: buPROPion SR 150mg tablet PO SCH ×2 (08:38→14:18)
[2023-08-22] MEDS: metoprolol tartrate 50mg tablet PO SCH ×2 (08:38→20:26)
[2023-08-22] MEDS: heparin, porcine 5000 units/ml vial SQ SCH ×2 (08:41→20:25)
[2023-08-22] MEDS: insulin Lispro (HumaLOG) vial - multi-dose SQ SCH ×3 (08:49→18:52)
[2023-08-22] MEDS: normal saline 1000ml 1,000 ML IV SCH (11:30)
--- NOTE | 2023-08-22 17:53 | NUR ---
Nursing Progress Note: Problem : Pt. is on a 5150 for DTS. Per 5150: You state you are better off and are hopeless to see any other solutions in your life. Interventions : Maintained a safe and supportive environment, ensured contract for safety, provided clear and simple instructions, maintained Accuchecks and diabetic protocol, maintained IV fluids of normal saline per MD order, maintained fall precautions, and maintained line of sight. Response : Received pt. sleeping in bed at the beginning of the shift, he remains on line of sight for safety precautions. Pt. continues to require continuous IV normal saline and IV remains present in his right hand, patent and no s/s of infiltration noted. 1:1 was completed, pt. continues to deny any S/I, does not exhibit any internal stimuli, and no delusional statements were made. He continues to exhibit frequent joking and laughter which appears to be incongruent with his affect which is blunted at times. Pt. may be minimizing any mental health s/s. Pt. sat up in the Group Room throughout the entire shift playing cards with others and completing puzzles. Plan : Pt. continues to require medication adjustments and a safe and supportive environment.
[2023-08-22] MEDS: atorvastatin 20mg tablet PO SCH (20:27)
[2023-08-22] MEDS: insulin glargine (Lantus) pen - multi-dose SQ SCH (20:35)
[2023-08-22 20:47] VITALS: BP 140/71; PULSE 71; RESP 18; TEMP 98.6; O2SAT 99
--- NOTE | 2023-08-23 01:38 | NUR ---
Nursing Progress Note: Problem : Pt. is on a 5150 for DTS. Per 5150: You state you are better off and are hopeless to see any other solutions in your life. Interventions : Maintained a safe and supportive environment, ensured contract for safety, provided clear and simple instructions, maintained Accuchecks and diabetic protocol, maintained IV fluids of normal saline per MD order, maintained fall precautions, and maintained line of sight. Response : Pt was in group room watching tv at change of shift. pt remains on line of sight for safety precautions. Pt. continues to require continuous IV normal saline and IV remains present in his right hand, patent and no s/s of infiltration noted. Pt is pleasant, cooperative, denies s/i. Pt is often joking but with blunted affect. Pts BS is 118 at Dinner and 155 at HS. Pt was given HS meds, and spent time reading before going to bed. Pt declines to have dressing changed this evening. Plan : Pt. continues to require medication adjustments and a safe and supportive environment.
[2023-08-23 07:00] VITALS: RESP 14; O2SAT 99
[2023-08-23] MEDS: normal saline 1000ml 1,000 ML IV SCH (07:48)
[2023-08-23] MEDS: heparin, porcine 5000 units/ml vial SQ SCH ×2 (07:49→20:19)
[2023-08-23] MEDS: buPROPion SR 150mg tablet PO SCH ×2 (07:49→13:56)
[2023-08-23] MEDS: metoprolol tartrate 50mg tablet PO SCH ×2 (07:50→20:19)
[2023-08-23 08:00] VITALS: BP 150/81; PULSE 51; RESP 14; TEMP 97.3; O2SAT 99
--- NOTE | 2023-08-23 08:56 | NUR ---
PER DR. FABIAN DO NOT MOVE PT'S HUMALOG PAST LEVEL #2
[2023-08-23] MEDS: insulin Lispro (HumaLOG) vial - multi-dose SQ SCH ×3 (09:23→18:44)
[2023-08-23 10:58] LABS: ALBUMIN 3.4 G/DL (3.4-5.0); ANION GAP 8 (8-16); BLOOD UREA NITROGEN 83 MG/DL (7-18); BUN/CREATININE RATIO 25.3 (10.0-20.0); CALCIUM 9.5 MG/DL (8.5-10.1); CHLORIDE 107 MMOL/L (99-107); CREATININE 3.28 MG/DL (0.60-1.10); GLUCOSE 154 MG/DL (70-104); SODIUM 136 MMOL/L (135-145); TOTAL CARBON DIOXIDE 20.9 MMOL/L (24-32); eCRCL 23 ML/MIN; eGFR 19 ML/MIN
[2023-08-23 11:00] LABS: POTASSIUM 5.5 MMOL/L (3.5-5.1)
[2023-08-23] MEDS ORDERED: dextrose 50%-water 50ml dispensing syringe IV ONE (12:15)
[2023-08-23] MEDS ORDERED: albuterol 2.5 MG/3 ML nebule CONTNEB ONE (12:15)
[2023-08-23] MEDS ORDERED: calcium chloride 100 MG/1 ML inj IV ONE (12:15)
[2023-08-23] MEDS ORDERED: insulin regular, human 10 units/0.1 ml syringe IV ONE (12:15)
[2023-08-23] MEDS: SODIUM ZIRCONIUM CYCLOSILICATE 10 GM POWD.PACK PO SCH (14:22)
--- NOTE | 2023-08-23 17:11 | NUR ---
Nursing Progress Note: Nghia Problem : Pt. is on a 5150 for DTS. Per 5150: You state you are better off and are hopeless to see any other solutions in your life. Interventions : Maintained a safe and supportive environment, ensured contract for safety, provided clear and simple instructions, maintained Accuchecks and diabetic protocol, maintained IV fluids of normal saline per MD order, maintained fall precautions, and maintained line of sight. Response : Received pt asleep. Pt took medications cooperatively and ate meals in the community room. Pt is on LOS due to IV fluids running. Fluids increased to 125ml/hr at 1245 today per order. Pt is to remain on a level 2 hyperglycemic protocol per MD. Wound care provided as ordered. Pt observed watching tv in the community room and interacting with peers. Performed 1:1 bedside. Pt denies SI/HI and AVH. Pt calm and cooperative with staff. Potassium 5.5, given Lokelma per order. Plan : Pt. continues to require medication adjustments and a safe and supportive environment.
[2023-08-23 19:00] VITALS: RESP 16; O2SAT 97
[2023-08-23 20:03] VITALS: BP 151/83; PULSE 65; RESP 16; TEMP 97.5; O2SAT 97
[2023-08-23] MEDS: atorvastatin 20mg tablet PO SCH (20:20)
[2023-08-23] MEDS: insulin glargine (Lantus) pen - multi-dose SQ SCH (20:23)
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
[2023-08-24 07:00] VITALS: RESP 18; O2SAT 96
[2023-08-24 07:43] VITALS: BP 125/69; PULSE 66; RESP 18; TEMP 97.2; O2SAT 96
[2023-08-24] MEDS: heparin, porcine 5000 units/ml vial SQ SCH ×2 (08:00→20:37)
[2023-08-24] MEDS: SODIUM ZIRCONIUM CYCLOSILICATE 10 GM POWD.PACK PO SCH (08:00)
[2023-08-24] MEDS: insulin Lispro (HumaLOG) vial - multi-dose SQ SCH ×3 (08:53→19:05)
[2023-08-24 09:39] LABS: ALBUMIN 3.2 G/DL (3.4-5.0); ANION GAP 5 (8-16); BLOOD UREA NITROGEN 70 MG/DL (7-18); BUN/CREATININE RATIO 22.7 (10.0-20.0); CALCIUM 9.2 MG/DL (8.5-10.1); CHLORIDE 108 MMOL/L (99-107); CREATININE 3.08 MG/DL (0.60-1.10); GLUCOSE 144 MG/DL (70-104); POTASSIUM 4.7 MMOL/L (3.5-5.1); SODIUM 138 MMOL/L (135-145); TOTAL CARBON DIOXIDE 24.7 MMOL/L (24-32); eCRCL 24 ML/MIN; eGFR 21 ML/MIN
[2023-08-24] MEDS: buPROPion SR 150mg tablet PO SCH ×2 (09:53→13:34)
[2023-08-24] MEDS: metoprolol tartrate 50mg tablet PO SCH ×2 (09:54→20:36)
[2023-08-24] MEDS: normal saline 1000ml 1,000 ML IV SCH ×2 (13:19→20:49)
[2023-08-24 16:43] LABS: BILIRUBIN,URINE NEGATIVE (Neg); CLARITY,URINE CLEAR (Clear); COLOR,URINE YELLOW (Yellow); GLUCOSE, URINE 250 mg/dl (Neg); KETONES,URINE NEGATIVE (Neg); LEUKOCYTE ESTERASE ,URINE NEGATIVE (Neg); NITRITES, URINE NEGATIVE (Neg); OCCULT BLOOD,URINE NEGATIVE (Neg); PH,URINE 5.5 (4.8-8.0); PROTEIN,URINE 100 mg/dl (Neg); UROBILINOGEN,URINE 0.2 E.U/dL (0.2-1.0)
[2023-08-24 16:44] LABS: UA COLLECTION TYPE NON-SPECIFIED
[2023-08-24 16:48] LABS: TOTAL PROTEIN,URINE RANDOM 75.9 MG/DL
[2023-08-24 16:59] LABS: BACTERIA,URINE NONE SEEN /HPF (Neg); RBC,URINE NONE SEEN /HPF (0-2); SQUAMOUS EPITHELIAL CELL,UR NONE SEEN /LPF (FEW); WBC,URINE 0-4 /HPF (0-4)
--- NOTE | 2023-08-24 17:12 | NUR ---
Nursing Progress Note: Nghia Problem : Pt. is on a 5150 for DTS. Per 5150: You state you are better off and are hopeless to see any other solutions in your life. Interventions : Maintained a safe and supportive environment, ensured contract for safety, provided clear and simple instructions, maintained Accuchecks and diabetic protocol, maintained IV fluids of normal saline per MD order, maintained fall precautions, and maintained line of sight. Response: Received pt asleep at change of shift. Pt took medications cooperatively and ate meals in the community room. 1:1 performed bedside. Pt denies SI/HI and AVH. Pt had a kidney ultrasound and UA obtained today. Pt remains on level 2 hyperglycemic protocol. Wound care provided as ordered. IV right hand 22 gauge clean/dry/intact; IV fluids started 1330 per order NS 125ml/hr. Potassium level WNL as of this morning. Pt observed reading in room, interacting with peers, and watching tv in the community room. No s/s of distress. Plan : Pt. continues to require medication adjustments and a safe and supportive environment.
[2023-08-24 17:24] LABS: UA EOSINOPHILS NO EOS /HPF
[2023-08-24 19:00] VITALS: RESP 16; O2SAT 98
[2023-08-24 19:55] VITALS: BP 145/92; PULSE 61; RESP 16; TEMP 98; O2SAT 98
[2023-08-24] MEDS: atorvastatin 20mg tablet PO SCH (20:35)
[2023-08-24] MEDS: insulin glargine (Lantus) pen - multi-dose SQ SCH (20:48)
--- NOTE | 2023-08-24 23:54 | NUR ---
Nursing Progress Note: Nghia Problem : Pt. is on a 5150 for DTS. Per 5150: You state you are better off and are hopeless to see any other solutions in your life. Interventions : Maintained a safe and supportive environment, ensured contract for safety, provided clear and simple instructions, maintained Accuchecks and diabetic protocol, maintained IV fluids of normal saline per MD order, maintained fall precautions, and maintained line of sight. Response: Pt up in group room at start of shift. BS 132 before dinner. 6 units regular insulin given for nutritional coverage. HS BS 189 given 10 units Lantus per order. Pt is knowledgeable about Diabetic protocol and diet. Requested to talk to Dietitian about Renal Diet. IV right hand 22 gauge clean/dry/intact; IV fluids per order NS 125ml/hr. Pt up in group room until it closed watching TV and interacting with Staff and other pts. His affect is very bright and cheerful. Smiles and laughs easily. Pt denies SI/HI and AVH. Plan : Pt. continues to require medication adjustments and a safe and supportive environment.
[2023-08-25] MEDS: normal saline 1000ml 1,000 ML IV SCH ×3 (04:31→21:14)
[2023-08-25 07:00] VITALS: BP 156/89; PULSE 54; RESP 16; TEMP 97.3; O2SAT 96; O2SAT 97
[2023-08-25] MEDS: buPROPion SR 150mg tablet PO SCH ×2 (07:59→13:04)
[2023-08-25] MEDS: metoprolol tartrate 50mg tablet PO SCH ×2 (07:59→20:40)
[2023-08-25] MEDS: insulin Lispro (HumaLOG) vial - multi-dose SQ SCH ×2 (09:16→19:02)
[2023-08-25] MEDS: heparin, porcine 5000 units/ml vial SQ SCH ×2 (09:31→20:42)
[2023-08-25 09:56] LABS: ALBUMIN 3.3 G/DL (3.4-5.0); ANION GAP 6 (8-16); BLOOD UREA NITROGEN 66 MG/DL (7-18); BUN/CREATININE RATIO 22.4 (10.0-20.0); CHLORIDE 110 MMOL/L (99-107); CREATININE 2.94 MG/DL (0.60-1.10); GLUCOSE 149 MG/DL (70-104); SODIUM 139 MMOL/L (135-145); TOTAL CARBON DIOXIDE 23.1 MMOL/L (24-32); eCRCL 25 ML/MIN; eGFR 22 ML/MIN
--- NOTE | 2023-08-25 16:48 | NUR ---
Nursing Progress Note: Nghia Problem : Pt. is on a 5150 for DTS. Per 5150: You state you are better off and are hopeless to see any other solutions in your life. Interventions : Maintained a safe and supportive environment, ensured contract for safety, provided clear and simple instructions, maintained Accuchecks and diabetic protocol, maintained IV fluids of normal saline per MD order, maintained fall precautions, and maintained line of sight. Response : Pt. received asleep on LOS d/t IV Rt hand running NS 125ml/hr. Pt. denies SI,HI,AH,VH and reports 4/10 depression. Pt. compliant with medications and continues to use WC for transportation on unit. Pt. presents as upbeat joking with this lyric writer and has good eye contact. He ate all meals in the community room with cohorts often socializing with cohorts and watching tv for extended period of time. Pt. denies needing a shower, hygiene is fair, and he is wearing street clothes. Wound care completed per order with no s/sx of infection found Level 2 coverage BS: 86, 117, (3852) TBA Plan : Pt. continues to require medication adjustments and a safe and supportive environment.
--- NOTE | 2023-08-25 18:28 | NUR ---
Nutrition Consult "on renal diet w/ DM needs info": Pt changed to renal diet 08/20 [facility] for SANG currently receiving IV NS a 125ml/hr per EMR. Carb controlled diet cancelled w/ diet change and PO decreased ~55% avg meals past 5.5 days though mostly ~25% avg recent meals overall partially meeting needs. Noted Jon shake BID cancelled 08/20 by pt drank 100% of two prior to cancellation. RD attempted to contact floor via TC w/ recs though unsuccessful. RD faxed floor recommends cancelling renal diet w/ return to carb controlled diet given SANG and prior good meal acceptance on carb control, mag/phos check, and routine MVI supplementation for wound healing if MD agreeable. Pt not appropriate for renal or carb controlled diet eds given declining intake and SANG; will remain available if future concerns. Glu 86-161mg/dl on glycemic protocol. LBM 08/24. Will monitor for further PO acceptance and nutrition intervention needs this admit. Recommendations: 1) return to carb control diet; renal diet not indicated given SANG and declining intake since diet change; encourage PO 2) monitor further PO trends for ONS needs 3) Routine MVI supplementation for wound healing if MD agreeable 4) Consider mag/phos levels per physician discretion 5) Bowel care per rx 6) Weekly scaled weights Addendum: 08/25/23 at [address] Amended: Links added.
[2023-08-25 19:00] VITALS: RESP 18; O2SAT 97
[2023-08-25 20:00] VITALS: BP 168/89; PULSE 71; RESP 18; TEMP 97.7; O2SAT 97
[2023-08-25] MEDS: atorvastatin 20mg tablet PO SCH (20:40)
[2023-08-25] MEDS: insulin glargine (Lantus) pen - multi-dose SQ SCH (20:55)
--- NOTE | 2023-08-26 02:47 | NUR ---
Nursing Progress Note: Nghia Problem: Pt. is on a 5150 for DTS. Per 5150: You state you are better off and are hopeless to see any other solutions in your life. Interventions: Maintained a safe and supportive environment, ensured contract for safety, provided clear and simple instructions, maintained Accuchecks and diabetic protocol, maintained IV fluids of normal saline per MD order, maintained fall precautions, and maintained line of sight. Response: Received pt. in the day room where he was finishing dinner. Pt has an IV dripping at 60ml/hr and IV site is patent, no redness or swelling observed. Pt is pleasant, joking and cooperative with care. Pt ambulates with a wheelchair and is visible on the unit. Pt's blood sugar before dinner is 161. Pt got his Humalog, 5 units after dinner. Blood glucose is 115 and Lantus 10 units given at HS. Pt is medication compliant. Heparin 5000 unit given in left abdomen. Pt denies SI/HI/AVH. No behavioral issues observed. Monitor for safety. Plan: Pt. continues to require medication adjustments and a safe and supportive environment.
[2023-08-26] MEDS ORDERED: normal saline 1000ml 1,000 ML IV SCH (04:25)
[2023-08-26 07:00] VITALS: RESP 16; O2SAT 95
[2023-08-26 08:00] VITALS: BP 168/81; PULSE 68; RESP 16; TEMP 98.6; O2SAT 94
[2023-08-26] MEDS ORDERED: SODIUM ZIRCONIUM CYCLOSILICATE 10 GM POWD.PACK PO SCH (08:00)
[2023-08-26 08:12] LABS: ANION GAP 11 (8-16); BLOOD UREA NITROGEN 56 MG/DL (7-18); BUN/CREATININE RATIO 21.8 (10.0-20.0); CHLORIDE 112 MMOL/L (99-107); CREATININE 2.57 MG/DL (0.60-1.10); GLUCOSE 113 MG/DL (70-104); POTASSIUM 4.5 MMOL/L (3.5-5.1); SODIUM 142 MMOL/L (135-145); TOTAL CARBON DIOXIDE 19.3 MMOL/L (24-32); eCRCL 29 ML/MIN; eGFR 25 ML/MIN
[2023-08-26] MEDS: buPROPion SR 150mg tablet PO SCH ×2 (08:34→13:21)
[2023-08-26] MEDS: metoprolol tartrate 50mg tablet PO SCH ×2 (08:34→20:34)
[2023-08-26] MEDS: heparin, porcine 5000 units/ml vial SQ SCH ×2 (09:21→20:44)
[2023-08-26] MEDS: sodium bicarbonate (8.4%) inj. 100 MEQ in dextrose 5%-water 1,000 ML IV SCH ×2 (09:45→22:01)
[2023-08-26] MEDS: insulin Lispro (HumaLOG) vial - multi-dose SQ SCH (13:20)
[2023-08-26] MEDS ORDERED: amLODIPine 5mg tablet PO ONE (15:10)
--- NOTE | 2023-08-26 17:25 | NUR ---
Nursing Progress Note: Nghia Problem : Pt. is on a 5150 for DTS. Per 5150: You state you are better off and are hopeless to see any other solutions in your life. Interventions : Maintained a safe and supportive environment, ensured contract for safety, provided clear and simple instructions, maintained Accuchecks and diabetic protocol, maintained IV fluids of normal saline per MD order, maintained fall precautions, and maintained line of sight. Response : Pt. received asleep with LOS d/t IV running at 100ml/hr in Rt.hand. Pt. Pt. denies SI, HI, AH, VH and is currently voluntary. He continues to receive wound care of Lt. greater toe, with no s/sx of infection found. Pt. has good eye contact, cooperative and socializes with cohorts. He ate all meals I the community room and watched tv for several hours this shift. He took all medications without hesitancy, remains on heparin with s/sx of increased bleeding found. Pt. utilizes for transportation on unit. He continues on Level 2 coverage BS: 114,144, 117. Lokelma PO administered today as a maintenance dose, IV fluids changed to Sodium bicarb/ Dextrose. One time order amlodipine administered with good results. Plan : Pt. continues to require medication adjustments and a safe and supportive environment.
[2023-08-26 19:25] VITALS: BP 122/98; PULSE 64; RESP 18; TEMP 97.8; O2SAT 100
[2023-08-26 19:50] VITALS: RESP 18; O2SAT 100
[2023-08-26] MEDS: atorvastatin 20mg tablet PO SCH (20:39)
[2023-08-26] MEDS: insulin glargine (Lantus) pen - multi-dose SQ SCH (20:55)
--- NOTE | 2023-08-27 02:42 | NUR ---
Nursing Progress Note: Problem : Pt. is on a 5150 for DTS. Per 5150: You state you are better off and are hopeless to see any other solutions in your life. Interventions : Maintained a safe and supportive environment, ensured contract for safety, provided clear and simple instructions, maintained Accuchecks and diabetic protocol, maintained IV fluids of normal saline per MD order, maintained fall precautions, and maintained line of sight. Response : This nurse resumed care for patient at 1830. Upon entering shift patient was seen in common room finishing up dinner. Patient was given 1 unit of Humalog after dinner. Patient HS blood sugar was 126. Patient was administered 10 units of Lantus. Patients wound care was done, wound clean dry and intact. Patients IV was assessed and he was administered Sodium Bicarbonate 8.4% inj 100 Meq in dextrose 5% -water 1,000 ML once due. Patient has denied all symptoms. Patient currently in room reading. Plan : Pt. continues to require medication adjustments and a safe and supportive environment.
[2023-08-27 07:00] VITALS: RESP 16; O2SAT 94
[2023-08-27] MEDS: sodium bicarbonate (8.4%) inj. 100 MEQ in dextrose 5%-water 1,000 ML IV SCH (07:42)
[2023-08-27 08:00] VITALS: BP 160/97; PULSE 56; RESP 16; TEMP 97.3; O2SAT 97
[2023-08-27] MEDS ORDERED: sertraline 25mg tablet PO ONE (08:05)
[2023-08-27] MEDS: buPROPion SR 150mg tablet PO SCH ×2 (08:45→13:15)
[2023-08-27] MEDS: metoprolol tartrate 50mg tablet PO SCH ×2 (08:45→20:52)
[2023-08-27] MEDS: amLODIPine 5mg tablet PO SCH (08:46)
[2023-08-27] MEDS: insulin Lispro (HumaLOG) vial - multi-dose SQ SCH ×3 (09:13→21:32)
[2023-08-27 09:58] LABS: MEAN CORPUSCULAR HEMOGLOBIN 27.8 PG (27.0-31.0)
[2023-08-27 10:00] LABS: BASOPHILS # (AUTO) 0.1 X10'3 (0-0.2); EOSINOPHILS # (AUTO) 0.2 X10'3 (0-0.9); EOSINOPHILS % (AUTO) 3.6 % (0-6); HEMATOCRIT 40.2 % (42.0-52.0); LYMPHOCYTES # (AUTO) 1.4 X10'3 (1.1-4.8); LYMPHOCYTES % (AUTO) 20.9 % (21-51); MEAN CORPUSCULAR HGB CONC 32.4 g/dL (33.0-36.5); MEAN CORPUSCULAR VOLUME 85.7 FL (78-98); MEAN PLATELET VOLUME 8.7 FL (7.4-10.4); MONOCYTES # (AUTO) 0.7 X10'3 (0-0.9); MONOCYTES % (AUTO) 10.9 % (2-12); NEUTROPHILS # (AUTO) 4.1 X10'3 (1.8-7.7); NEUTROPHILS % (AUTO) 63.6 % (42-75); PLATELET COUNT 227 X10'3 (140-440); RED BLOOD COUNT 4.69 X10'6 (4.70-6.10); RED CELL DISTRIBUTION WIDTH 15.3 % (11.5-14.5); WHITE BLOOD COUNT 6.5 X10'3 (4.5-11.0)
[2023-08-27 10:09] LABS: ALBUMIN 3.2 G/DL (3.4-5.0); ANION GAP 6 (8-16); BLOOD UREA NITROGEN 48 MG/DL (7-18); BUN/CREATININE RATIO 20.6 (10.0-20.0); CALCIUM 9.3 MG/DL (8.5-10.1); CHLORIDE 106 MMOL/L (99-107); CREATININE 2.33 MG/DL (0.60-1.10); GLUCOSE 163 MG/DL (70-104); POTASSIUM 4.1 MMOL/L (3.5-5.1); SODIUM 140 MMOL/L (135-145); TOTAL CARBON DIOXIDE 27.9 MMOL/L (24-32); eCRCL 32 ML/MIN; eGFR 29 ML/MIN
[2023-08-27] MEDS: heparin, porcine 5000 units/ml vial SQ SCH ×2 (10:43→20:53)
--- NOTE | 2023-08-27 11:28 | NUR ---
CASE MANAGEMENT This [employer] left a message for Lana at [facility] for follow up to see if any rooms have become available for him. Renata Galicia, [employer] T[employer]ITORY MANAGER
--- NOTE | 2023-08-27 17:29 | NUR ---
Nursing Progress Note: Nghia Problem : Pt. admitted on a 5150 for DTS. Per 5150: You state you are better off and are hopeless to see any other solutions in your life. Currently voluntary status Interventions : Maintained a safe and supportive environment, ensured contract for safety, provided clear and simple instructions, maintained Accuchecks and diabetic protocol, maintained IV fluids of normal saline per MD order, maintained fall precautions, and maintained line of sight. Response : Pt. received asleep and on LOS d/t IV site on Rt. hand. Pt. later removed off LOS as IV fluids were DCd and IV site removed. He denies SI, HI, AH, VH and has no DC plan at this time. Pt. presents as cooperative, upbeat, has good eye contact. N.O for lubricated eye drops received and pt. was encouraged to clip his nails. Pt. continues on SQ Heparin with no s/sx of excessive bleeding found. He took all his medications without hesitation and started PO sertraline today. Pt. continues to utilize w/c for transportation on the unit, BS continue to be monitored and covered per policy. BS: 147,148, 120 Plan : Pt. continues to require medication adjustments and a safe and supportive environment.
[2023-08-27 19:00] VITALS: RESP 18; O2SAT 96
[2023-08-27 20:00] VITALS: BP 139/79; PULSE 64; RESP 18; TEMP 98.1; O2SAT 96
[2023-08-27] MEDS: atorvastatin 20mg tablet PO SCH (20:51)
[2023-08-27] MEDS: insulin glargine (Lantus) pen - multi-dose SQ SCH (20:58)
--- NOTE | 2023-08-28 02:59 | NUR ---
Nursing Progress Note: Problem: Pt. admitted on a 5150 for DTS. Per 5150: You state you are better off and are hopeless to see any other solutions in your life. Currently voluntary status Interventions: Maintained a safe and supportive environment, ensured contract for safety, provided clear and simple instructions, maintained Accuchecks and diabetic protocol, maintained fall precautions, and maintained line of sight. Response: This nurse resumed care for patient at 1830. Patient was observed in dining [place] finishing dinner. During 1:1, patient started off cheerful and smiling. Patient refused to leave dining [place] to receive Humalog in private and was persistent with receiving it in [place]. Patient received 3 units of Humalog after consuming 28 grams of carbs at dinner time. Patient cooperative during medication pass. Patients HS blood sugar 184. IV was DCed on previous shift. Patient denied all symptoms including pain. Patient did not want wound care this shift, he stated he showered last shift and it was cleaned then. Patient currently in bed with eyes closed. no obvious signs of distress to note. Plan: Pt. continues to require medication adjustments and a safe and supportive environment.
[2023-08-28 07:00] VITALS: RESP 18; O2SAT 98
[2023-08-28 08:00] VITALS: BP 124/69; PULSE 64; RESP 18; TEMP 97.5; O2SAT 98
[2023-08-28 08:00] LABS: ANION GAP 5 (8-16); BLOOD UREA NITROGEN 51 MG/DL (7-18); BUN/CREATININE RATIO 20.6 (10.0-20.0); CHLORIDE 107 MMOL/L (99-107); CREATININE 2.48 MG/DL (0.60-1.10); GLUCOSE 118 MG/DL (70-104); SODIUM 140 MMOL/L (135-145); TOTAL CARBON DIOXIDE 28.1 MMOL/L (24-32)
[2023-08-28 08:01] LABS: ALBUMIN 3.1 G/DL (3.4-5.0); CALCIUM 9.3 MG/DL (8.5-10.1); eCRCL 30 ML/MIN; eGFR 27 ML/MIN
[2023-08-28] MEDS: naphazoline/pheniramine eye 1 DROP BOTTLE RIGHTEYE PRN ×2 (08:40→20:44)
[2023-08-28] MEDS: sertraline 25mg tablet PO SCH (08:40)
[2023-08-28] MEDS: buPROPion SR 150mg tablet PO SCH ×2 (08:40→13:24)
[2023-08-28] MEDS: amLODIPine 5mg tablet PO SCH (08:41)
[2023-08-28] MEDS: metoprolol tartrate 50mg tablet PO SCH ×2 (08:41→20:32)
[2023-08-28] MEDS: heparin, porcine 5000 units/ml vial SQ SCH ×2 (08:42→20:33)
[2023-08-28] MEDS: insulin Lispro (HumaLOG) vial - multi-dose SQ SCH ×2 (08:49→18:15)
--- NOTE | 2023-08-28 10:12 | NUR ---
DIABETIC FOOT CARE EDUCATION PROVIDED BY WOUND CARE * Wash your feet daily with lukewarm water and soap. * Dry your feet well, especially between the toes. * Keep the skin moisturized with lotion, but do not apply it between the toes. * Check your feet for blisters, cuts or sores. * Use an emery board to shape your toenails even with the ends of your toes. * Change daily into clean, soft socks or stockings, not too big or too small. * Keep your feet warm and dry. * Preferably wear special padded socks and shoes that fit well. * Never walk barefoot indoors or outdoors. * Examine your shoes everyday for cracks, ubaldo, nails or anything that could hurt your feet. * Tell your doctor if you find any of these problems or have any concerns after examining your feet. Addendum: 08/28/23 at 1013 by Lilia Cazares RN Amended: Links added.
--- NOTE | 2023-08-28 17:25 | NUR ---
Nursing Progress Note: Nghia Problem: Pt. admitted on a 5150 for DTS. Per 5150: You state you are better off and are hopeless to see any other solutions in your life. Currently voluntary status Interventions: Maintained a safe and supportive environment, ensured contract for safety, provided clear and simple instructions, maintained Accuchecks and diabetic protocol, and maintained fall precautions. Response: Received pt awake in room smiling and happy. Pt ate breakfast and took all morning medications cooperatively. Performed AC blood glucose checks and gave insulin per protocol; 2 units after breakfast (BG 115, 19grams carbs) and no units after lunch (BG 104, 3grams carbs). Wound care nurse performed wound care this morning. Performed 1:1 bedside. Pt denies SI/HI and AVH. Pt observed watching TV in the community room and interacting with tech. Pt observed reading in his room by the window. No s/s of distress. Plan: Pt. continues to require medication adjustments and a safe and supportive environment.
[2023-08-28 19:00] VITALS: RESP 16; O2SAT 100
[2023-08-28 20:22] VITALS: BP 142/81; PULSE 61; RESP 16; TEMP 97.7; O2SAT 100
[2023-08-28] MEDS: atorvastatin 20mg tablet PO SCH (20:31)
[2023-08-28] MEDS: insulin glargine (Lantus) pen - multi-dose SQ SCH (20:42)
--- NOTE | 2023-08-29 02:54 | NUR ---
Nursing Progress Note: Problem: Pt. admitted on a 5150 for DTS. Per 5150: You state you are better off and are hopeless to see any other solutions in your life. Currently voluntary status Interventions: Maintained a safe and supportive environment, ensured contract for safety, provided clear and simple instructions, maintained Accuchecks and diabetic protocol, and maintained fall precautions. Response: This nurse resumed care for patient at 1830. During 1:1, patient was in room reading his book. Patient had just got done with snack. Patient continues to have a great attitude and jokes every chance he gets. Patient denies all symptoms including pain. Patient is very appreciative of staff. Patient currently in bed with eyes closed. Plan: Pt. continues to require medication adjustments and a safe and supportive environment.
[2023-08-29 08:00] VITALS: BP 127/67; PULSE 54; RESP 17; TEMP 98.7; O2SAT 99
[2023-08-29 08:13] LABS: ALBUMIN 3.1 G/DL (3.4-5.0); ANION GAP 6 (8-16); BLOOD UREA NITROGEN 56 MG/DL (7-18); BUN/CREATININE RATIO 20.6 (10.0-20.0); CALCIUM 9.2 MG/DL (8.5-10.1); CHLORIDE 105 MMOL/L (99-107); CREATININE 2.72 MG/DL (0.60-1.10); GLUCOSE 163 MG/DL (70-104); POTASSIUM 4.8 MMOL/L (3.5-5.1); SODIUM 138 MMOL/L (135-145); eCRCL 27 ML/MIN; eGFR 24 ML/MIN
[2023-08-29] MEDS: insulin Lispro (HumaLOG) vial - multi-dose SQ SCH ×3 (08:18→19:37)
[2023-08-29] MEDS: amLODIPine 5mg tablet PO SCH (08:32)
[2023-08-29] MEDS: sertraline 25mg tablet PO SCH (08:32)
[2023-08-29] MEDS: buPROPion SR 150mg tablet PO SCH ×2 (08:32→13:35)
[2023-08-29] MEDS: metoprolol tartrate 50mg tablet PO SCH ×2 (08:33→20:26)
[2023-08-29] MEDS: heparin, porcine 5000 units/ml vial SQ SCH ×2 (08:35→20:34)
[2023-08-29] MEDS: naphazoline/pheniramine eye 1 DROP BOTTLE RIGHTEYE PRN ×2 (09:29→17:30)
--- NOTE | 2023-08-29 14:12 | NUR ---
CASE MANAGEMENT Spoke with Lana at [facility], she still does not have any rooms that would be suitable for Pt. at this time. KRZYSZTOF CabaW
--- NOTE | 2023-08-29 17:21 | NUR ---
Nursing progress note: Problem: Admit Note: Pt. admitted on a 5150 for DTS. Per 5150: You state you are better off and are hopeless to see any other solutions in your life. Currently voluntary status Interventions: Maintained a safe and structured environment, ensured contract for safety, administered meds as prescribed, provided clear and simple instructions, attempted to orient to reality, and maintained Q 15min safety checks. Response: Pt. was up for vitals and breakfast. He was med compliant. He was in the dayroom playing cards with the nursing students. When asked about a discharge plan he states, I am here until I get accepted somewhere. Asked if he was ready to be discharged he states, No not yet, I really dont have nowhere to go. -Appearance: casually groomed -Eye contact: good -Mood: calm -Affect: congruent with mood -Speech: WNL -Thought Process: intact -Thought content: focused on getting housing/placement -A/V/H: denies -SI/HI: denies -ADLs: needs some assistance -Insight: fair -Judgement: poor Plan: Cont. to require a safe and structured environment for further stabilization. Pt. is unable to formulate a safe discharge plan at this time. If discharged he could be a risk for safety and re-hospitalization.
[2023-08-29 19:56] VITALS: BP 144/83; PULSE 61; RESP 16; TEMP 97.7; O2SAT 100
[2023-08-29] MEDS: atorvastatin 20mg tablet PO SCH (20:34)
[2023-08-29] MEDS: insulin glargine (Lantus) pen - multi-dose SQ SCH (20:37)
--- NOTE | 2023-08-30 05:47 | NUR ---
Nursing Progress Note: Problem: Pt. admitted on a 5150 for DTS. Per 5150: You state you are better off and are hopeless to see any other solutions in your life. Currently voluntary status Interventions: Maintained a safe and supportive environment, ensured contract for safety, provided clear and simple instructions, maintained Accuchecks and diabetic protocol, and maintained fall precautions. Response: Patient pleasant and cooperative with care; compliant with medication. Dinner coverage for 37g carbs (BS 120) was 4units Humalog; HS BS 175. Patient denied SI, HI, A/VH; no apparent delusions expressed. Patient is social and jokes with staff; participated in HS snack, watched TV and read his book prior to bed. Patient observed sleeping and does not appear to be having difficulty. Plan: Pt. continues to require medication adjustments and a safe and supportive environment.
[2023-08-30] MEDS: amLODIPine 5mg tablet PO SCH (07:52)
[2023-08-30] MEDS: sertraline 25mg tablet PO SCH (07:53)
[2023-08-30] MEDS: buPROPion SR 150mg tablet PO SCH ×2 (07:53→15:02)
[2023-08-30] MEDS: heparin, porcine 5000 units/ml vial SQ SCH ×2 (07:53→20:57)
[2023-08-30] MEDS: metoprolol tartrate 50mg tablet PO SCH ×2 (07:54→20:56)
[2023-08-30 08:00] VITALS: BP 131/54; PULSE 63; RESP 14; TEMP 97.9; O2SAT 98
[2023-08-30] MEDS: naphazoline/pheniramine eye 1 DROP BOTTLE RIGHTEYE PRN (09:50)
[2023-08-30] MEDS ORDERED: sertraline 25mg tablet PO ONE (16:25)
--- NOTE | 2023-08-30 17:29 | NUR ---
Nursing progress note: Problem: Admit Note: Pt. admitted on a 5150 for DTS. Per 5150: You state you are better off and are hopeless to see any other solutions in your life. Currently voluntary status Interventions: Maintained a safe and structured environment, ensured contract for safety, administered meds as prescribed, provided clear and simple instructions, attempted to orient to reality, and maintained Q 15min safety checks. Response: Pt. was up for vitals and breakfast. He was med compliant.Pt spends most of day in the community room watching TV and joking around. Glucose AM 102, L142. Pt awaiting some sort of place for discharge. -Appearance: casually groomed -Eye contact: good -Mood: calm -Affect: congruent with mood -Speech: WNL -Thought Process: intact -Thought content: focused on getting housing/placement -A/V/H: denies -SI/HI: denies -ADLs: needs some assistance -Insight: fair -Judgement: poor Plan: Cont. to require a safe and structured environment for further stabilization. Pt. is unable to formulate a safe discharge plan at this time. If discharged he could be a risk for safety and re-hospitalization.
[2023-08-30] MEDS: insulin Lispro (HumaLOG) vial - multi-dose SQ SCH (18:28)
[2023-08-30 19:42] VITALS: BP 126/71; PULSE 60; RESP 16; TEMP 97.5; O2SAT 94
[2023-08-30] MEDS: atorvastatin 20mg tablet PO SCH (20:56)
[2023-08-30] MEDS: insulin glargine (Lantus) pen - multi-dose SQ SCH (21:02)
--- NOTE | 2023-08-30 22:48 | NUR ---
Nursing Progress Note: Problem: Pt. admitted on a 5150 for DTS. Per 5150: You state you are better off and are hopeless to see any other solutions in your life. Currently voluntary status Interventions: Maintained a safe and supportive environment, ensured contract for safety, provided clear and simple instructions, maintained Accuchecks and diabetic protocol, and maintained fall precautions. Response: Patient pleasant and cooperative with care; compliant with medication. HS BS 111. Denied SI, HI, A/VH; no apparent delusions expressed. Patient is social, participated in HS snack and read prior to bed; he reports no difficulties sleeping. Plan: Pt. continues to require medication adjustments and a safe and supportive environment.
[2023-08-31 07:00] VITALS: RESP 16; O2SAT 99
[2023-08-31 08:00] VITALS: BP 134/79; PULSE 60; RESP 16; TEMP 97.3; O2SAT 99
[2023-08-31] MEDS: metoprolol tartrate 50mg tablet PO SCH ×2 (08:07→20:29)
[2023-08-31] MEDS: buPROPion SR 150mg tablet PO SCH ×2 (08:07→13:09)
[2023-08-31] MEDS: sertraline 25mg tablet PO SCH (08:07)
[2023-08-31] MEDS: amLODIPine 5mg tablet PO SCH (08:08)
[2023-08-31] MEDS: naphazoline/pheniramine eye 1 DROP BOTTLE RIGHTEYE PRN (09:16)
[2023-08-31 10:25] LABS: BASOPHILS # (AUTO) 0.1 X10'3 (0-0.2); BASOPHILS % (AUTO) 1.2 % (0-1); EOSINOPHILS # (AUTO) 0.2 X10'3 (0-0.9); EOSINOPHILS % (AUTO) 2.7 % (0-6); HEMATOCRIT 40.6 % (42.0-52.0); HEMOGLOBIN 13.1 g/dl (14.0-17.9); LYMPHOCYTES # (AUTO) 1.3 X10'3 (1.1-4.8); LYMPHOCYTES % (AUTO) 18.1 % (21-51); MEAN CORPUSCULAR HEMOGLOBIN 27.9 PG (27.0-31.0); MEAN CORPUSCULAR HGB CONC 32.2 g/dL (33.0-36.5); MEAN CORPUSCULAR VOLUME 86.7 FL (78-98); MEAN PLATELET VOLUME 9.2 FL (7.4-10.4); MONOCYTES # (AUTO) 0.6 X10'3 (0-0.9); MONOCYTES % (AUTO) 9.1 % (2-12); NEUTROPHILS # (AUTO) 4.9 X10'3 (1.8-7.7); NEUTROPHILS % (AUTO) 68.9 % (42-75); PLATELET COUNT 235 X10'3 (140-440); RED BLOOD COUNT 4.69 X10'6 (4.70-6.10); RED CELL DISTRIBUTION WIDTH 15.9 % (11.5-14.5); WHITE BLOOD COUNT 7.1 X10'3 (4.5-11.0)
--- NOTE | 2023-08-31 10:30 | NUR ---
F/u 08/31: Pt returned to carb control only diet 10/7 WL from prior renal/carb control. PO continues to be poor ~49% avg meals meeting ~51% kcal and ~67% protein minimum estimated needs. Glu 66mg/dl this AM s/p dextrose up to 75mg/dl on glycemic protocol. JOSE d/w RN recommends Glucerna TIDWM to assist meeting needs if MD agreeable. L metatarsal DFU healing per 08/28 [facility] note. LBM 08/28 per EMR. Will continue to follow. Recommendations: 1) continue carb controlled diet; encourage PO 2) Glucerna TIDWM to assist meeting needs 3) Consider mag/phos levels per physician discretion 4) Bowel care per rx 5) Weekly scaled weights Addendum: 08/31/23 at [address] Amended: Links added.
[2023-08-31 10:42] LABS: ALBUMIN 3.2 G/DL (3.4-5.0); ANION GAP 8 (8-16); BLOOD UREA NITROGEN 59 MG/DL (7-18); BUN/CREATININE RATIO 20.1 (10.0-20.0); CALCIUM 9.3 MG/DL (8.5-10.1); CHLORIDE 105 MMOL/L (99-107); CREATININE 2.94 MG/DL (0.60-1.10); GLUCOSE 118 MG/DL (70-104); POTASSIUM 5.2 MMOL/L (3.5-5.1); SODIUM 139 MMOL/L (135-145); TOTAL CARBON DIOXIDE 26.1 MMOL/L (24-32); eCRCL 25 ML/MIN; eGFR 22 ML/MIN
[2023-08-31] MEDS: heparin, porcine 5000 units/ml vial SQ SCH (13:22)
[2023-08-31] MEDS: insulin Lispro (HumaLOG) vial - multi-dose SQ SCH ×2 (13:39→18:36)
--- NOTE | 2023-08-31 17:04 | NUR ---
Nursing progress note: Nghia Problem: Admit Note: Pt. admitted on a 5150 for DTS. Per 5150: You state you are better off and are hopeless to see any other solutions in your life. Currently voluntary status Interventions: Maintained a safe and structured environment, ensured contract for safety, administered meds as prescribed, provided clear and simple instructions, attempted to orient to reality, and maintained Q 15min safety checks. Response: Received pt asleep. 0730 blood glucose was 66: given PRN 15 grams glucose tablets and 15 minutes later blood glucose 75. *Pt now on Level 1 Hyperglycemic protocol. Pt requested PRN eye drops, given with good effect. Performed wound care per orders; Betadine swab on wound (every other day). Potassium 5.2 today, MD aware. Dr. Crowell discontinued Heparin and re-initiated Eliquis today. BMP and BNP ordered for 09/02. Performed 1:1 bedside. Pt denies SI/HI and AVH. Pt very active on the unit. Observed watching tv in the community room and interacting with peers. No s/s of distress. Plan: Cont. to require a safe and structured environment for further stabilization. Pt. is unable to formulate a safe discharge plan at this time. If discharged he could be a risk for safety and re-hospitalization.
[2023-08-31 19:27] VITALS: BP 128/66; PULSE 60; RESP 17; TEMP 97.2; O2SAT 100
[2023-08-31] MEDS: apixaban 5mg tablet PO SCH (20:29)
[2023-08-31] MEDS: atorvastatin 20mg tablet PO SCH (20:29)
[2023-08-31] MEDS: insulin glargine (Lantus) pen - multi-dose SQ SCH (20:30)
--- NOTE | 2023-09-01 02:20 | NUR ---
Nursing Progress Note: Problem: Pt. admitted on a 5150 for DTS. Per 5150: You state you are better off and are hopeless to see any other solutions in your life. Currently voluntary status Interventions: Maintained a safe and supportive environment, ensured contract for safety, provided clear and simple instructions, maintained Accuchecks and diabetic protocol, and maintained fall precautions. Response: Patient pleasant and cooperative with care; compliant with medication. Patient denied SI, HI, A/VH; no apparent delusions expressed. Patient social, participated in HS snack and read his book prior to bed; observed sleeping and does not appear to be having difficulty. Level 1 for insulin; HS BS 151. Plan: Pt. continues to require medication adjustments and a safe and supportive environment.
[2023-09-01 07:30] VITALS: BP 120/61; PULSE 60; RESP 18; TEMP 96.5; O2SAT 99
[2023-09-01] MEDS: naphazoline/pheniramine eye 1 DROP BOTTLE RIGHTEYE PRN (07:35)
[2023-09-01] MEDS: buPROPion SR 150mg tablet PO SCH ×2 (07:39→14:45)
[2023-09-01] MEDS: metoprolol tartrate 50mg tablet PO SCH ×2 (07:40→20:48)
[2023-09-01] MEDS: sertraline 25mg tablet PO SCH (07:40)
[2023-09-01] MEDS: apixaban 5mg tablet PO SCH ×2 (07:40→20:47)
[2023-09-01] MEDS: amLODIPine 5mg tablet PO SCH (07:40)
[2023-09-01 09:58] LABS: ALBUMIN 3.3 G/DL (3.4-5.0); ANION GAP 8 (8-16); BLOOD UREA NITROGEN 64 MG/DL (7-18); BUN/CREATININE RATIO 20.1 (10.0-20.0); CALCIUM 9.5 MG/DL (8.5-10.1); CHLORIDE 104 MMOL/L (99-107); CREATININE 3.19 MG/DL (0.60-1.10); GLUCOSE 153 MG/DL (70-104); SODIUM 138 MMOL/L (135-145); TOTAL CARBON DIOXIDE 25.8 MMOL/L (24-32); eCRCL 23 ML/MIN; eGFR 20 ML/MIN
--- NOTE | 2023-09-01 18:10 | NUR ---
Nursing progress note: Nghia Problem: Admit Note: Pt. admitted on a 5150 for DTS. Per 5150: You state you are better off and are hopeless to see any other solutions in your life. Currently voluntary status Interventions: Maintained a safe and structured environment, ensured contract for safety, administered meds as prescribed, provided clear and simple instructions, attempted to orient to reality, and maintained Q 15min safety checks. Response: RN received pt. asleep in bed at start of shift. Pt .awoke for breakfast and took all medication. Pt. am and lunch time CBH was 123 and pt. ate 0 grams of carbs for breakfast and 2 grams of grabs for lunch and did not require insulin coverage. Pt.s dinner time CBG was 126. 1:1 done at bedside, pt. denies SI/HI, A/V hallucinations. Pt. reports his mood is better today, pt. smiling, states, Its a good day, I had a good dream!. Pt. observed socializing with peers. Plan: Cont. to require a safe and structured environment for further stabilization. Pt. is unable to formulate a safe discharge plan at this time. If discharged he could be a risk for safety and re-hospitalization.
[2023-09-01] MEDS: insulin Lispro (HumaLOG) vial - multi-dose SQ SCH (18:28)
[2023-09-01 19:57] VITALS: BP 128/64; PULSE 64; RESP 16; TEMP 97.8; O2SAT 99
[2023-09-01] MEDS: atorvastatin 20mg tablet PO SCH (20:47)
[2023-09-01] MEDS: insulin glargine (Lantus) pen - multi-dose SQ SCH (20:50)
--- NOTE | 2023-09-02 00:17 | NUR ---
Nursing Progress Note: Problem: Pt. admitted on a 5150 for DTS. Per 5150: You state you are better off and are hopeless to see any other solutions in your life. Currently voluntary status Interventions: Maintained a safe and supportive environment, ensured contract for safety, provided clear and simple instructions, maintained Accuchecks and diabetic protocol, and maintained fall precautions. Response: Patient pleasant and cooperative with care; compliant with medication. Denied SI, HI, A/VH; no apparent delusions expressed. Patient social with peers, watched TV and participated in HS snack prior to bed; observed sleeping and does not appear to be having difficulty. Level 1 for insulin; HS BS 153. Plan: Pt. continues to require medication adjustments and a safe and supportive environment.
[2023-09-02 07:30] VITALS: BP 118/78; PULSE 56; RESP 16; RESP 20; TEMP 97.4; O2SAT 98
[2023-09-02 07:57] LABS: ALBUMIN 3.2 G/DL (3.4-5.0); ANION GAP 8 (8-16); BLOOD UREA NITROGEN 65 MG/DL (7-18); CALCIUM 9.5 MG/DL (8.5-10.1); CHLORIDE 105 MMOL/L (99-107); CREATININE 3.42 MG/DL (0.60-1.10); GLUCOSE 129 MG/DL (70-104); POTASSIUM 4.8 MMOL/L (3.5-5.1); PRO BRAIN NATRIURETIC PEPTIDE 1823 PG/ML (0-125); SODIUM 138 MMOL/L (135-145); TOTAL CARBON DIOXIDE 25.2 MMOL/L (24-32); eCRCL 22 ML/MIN; eGFR 18 ML/MIN
[2023-09-02] MEDS: amLODIPine 5mg tablet PO SCH (08:30)
[2023-09-02] MEDS: apixaban 5mg tablet PO SCH ×2 (08:30→20:47)
[2023-09-02] MEDS: buPROPion SR 150mg tablet PO SCH ×2 (08:30→14:09)
[2023-09-02] MEDS: sertraline 25mg tablet PO SCH (08:30)
[2023-09-02] MEDS: metoprolol tartrate 50mg tablet PO SCH ×2 (08:30→20:46)
[2023-09-02] MEDS: insulin Lispro (HumaLOG) vial - multi-dose SQ SCH ×2 (13:56→18:40)
--- NOTE | 2023-09-02 17:31 | NUR ---
Nursing progress note: Problem: Admit Note: Pt. admitted on a 5150 for DTS. Per 5150: You state you are better off and are hopeless to see any other solutions in your life. Currently voluntary status Interventions: Maintained a safe and structured environment, ensured contract for safety, administered meds as prescribed, provided clear and simple instructions, attempted to orient to reality, and maintained Q 15min safety checks. Response: RN received pt. asleep in bed at start of shift. Pt. awoke for CBG check which was 110. Pt. only had 1 gram of carbs at breakfast and did not need any insulin coverage. Lunch time coverage was 2 units of insulin. 1:1 done at bedside, pt. denies SI/HI, A/V hallucinations, pt. reports feeling more depressed today, pt. states, Just feeling down about stuff. Pt. observed watching TV in community room and socializing with peers. Wound care done per wound care orders. Plan: Cont. to require a safe and structured environment for further stabilization. Pt. is unable to formulate a safe discharge plan at this time. If discharged he could be a risk for safety and re-hospitalization.
[2023-09-02] MEDS: polyvinyl alcohol ophthalmic drops 15ml bottle EACHEYE PRN (17:32)
--- NOTE | 2023-09-02 18:06 | NUR ---
ASYA informed resident of pt.'s ProBNP of 1822. Resident will come assess pt. Addendum: 09/02/23 at 1810 by Michael Denny RN Dr. Ferguson assessed pt. and will discuss with Dr. Heath. No further action as of this time.
[2023-09-02 20:00] VITALS: BP 111/69; PULSE 58; RESP 16; TEMP 97.4; O2SAT 100
[2023-09-02] MEDS: atorvastatin 20mg tablet PO SCH (20:47)
[2023-09-02] MEDS: insulin glargine (Lantus) pen - multi-dose SQ SCH (20:51)
--- NOTE | 2023-09-03 01:39 | NUR ---
Nursing Progress Note: Problem: Pt. admitted on a 5150 for DTS. Per 5150: You state you are better off and are hopeless to see any other solutions in your life. Currently voluntary status Interventions: Maintained a safe and supportive environment, ensured contract for safety, provided clear and simple instructions, maintained Accuchecks and diabetic protocol, and maintained fall precautions. Response: Patient pleasant and cooperative with care; compliant with medication. Denied SI, HI, A/VH; no apparent delusions expressed. Patient participated in HS snack and socialized with peers prior to bed; observed sleeping and does not appear to be having difficulty. Level 1 for insulin; HS BS 161. Plan: Pt. continues to require medication adjustments and a safe and supportive environment.
[2023-09-03 07:30] VITALS: RESP 12; O2SAT 100
[2023-09-03 08:00] VITALS: BP 117/59; PULSE 56; RESP 12; TEMP 97; O2SAT 100
[2023-09-03] MEDS: metoprolol tartrate 50mg tablet PO SCH ×2 (08:34→20:35)
[2023-09-03] MEDS: sertraline 25mg tablet PO SCH (08:34)
[2023-09-03] MEDS: amLODIPine 5mg tablet PO SCH (08:35)
[2023-09-03] MEDS: apixaban 5mg tablet PO SCH ×2 (08:35→20:35)
[2023-09-03] MEDS: buPROPion SR 150mg tablet PO SCH ×2 (08:35→14:15)
--- NOTE | 2023-09-03 09:31 | NUR ---
CASE MANAGEMENT Sent a referral to [facility] to [facility] medical respite today. Pt is agreeable to this plan. If they feel he is an appropriate referral they will come to [facility] to interview him. Renata Galicia LCSW
--- NOTE | 2023-09-03 10:37 | NUR ---
PRESSURE ULCER EDUCATION: DEFINITION: A pressure ulcer is an area of skin that breaks down when you stay in one position too long. The constant pressure against the skin reduces the blood flow to that area and the affected tissue dies. CAUSES: "Being bedridden or in a wheelchair "Fragile skin "Having a chronic condition, such as diabetes or vascular disease "Inability to move certain parts of your body without assistance "Older age "Incontinence of urine or stool SYMPTOMS: "A reddened area that DOES NOT turn white when pressed on - this can be the beginning of a pressure ulcer "A blister, deep sore or a crater - these can be advanced pressure ulcers FIRST AID: "Relieve the pressure on this area "Keep the area clean and dry "Call your primary doctor if you see any of the above symptoms "DO NOT massage the area "DO NOT use a donut shaped or ring shaped pillow- these actually interfere with the blood flow and cause complications PREVENTION: "Check for pressure ulcers everyday "Change position at least every two hours to relieve pressure "Use items that help relieve pressure- pillows, sheepskin, foam padding, and powders. "Keep skin clean and dry "Eat healthy well balanced meals "Exercise daily IF YOU SEE ANY OF THESE SYMPTOMS WHILE IN THE HOSPITAL - TELL YOUR NURSE IMMEDIATELY. IF YOU SEE ANY OF THESE SYMPTOMS WHILE AT HOME OR HAVE ANY QUESTIONS OR CONCERNS ABOUT PRESSURE ULCERS - CALL YOUR PRIMARY DOCTOR IMMEDIATELY. Addendum: 09/03/23 at 1039 by Lilia Cazares RN Amended: Links added.
--- NOTE | 2023-09-03 10:37 | NUR ---
DIABETIC FOOT CARE EDUCATION PROVIDED BY WOUND CARE * Wash your feet daily with lukewarm water and soap. * Dry your feet well, especially between the toes. * Keep the skin moisturized with lotion, but do not apply it between the toes. * Check your feet for blisters, cuts or sores. * Use an emery board to shape your toenails even with the ends of your toes. * Change daily into clean, soft socks or stockings, not too big or too small. * Keep your feet warm and dry. * Preferably wear special padded socks and shoes that fit well. * Never walk barefoot indoors or outdoors. * Examine your shoes everyday for cracks, ubaldo, nails or anything that could hurt your feet. * Tell your doctor if you find any of these problems or have any concerns after examining your feet. Addendum: 09/03/23 at 1039 by Lilia Cazares RN Amended: Links added.
[2023-09-03] MEDS: NUT.TX.GLUC.INTOLER,LAC-FR,SOY (GLUCERNA) 237 ML PO SCH ×2 (13:51→18:00)
[2023-09-03] MEDS: insulin Lispro (HumaLOG) vial - multi-dose SQ SCH ×2 (14:55→19:22)
--- NOTE | 2023-09-03 17:34 | NUR ---
Nursing progress note: Problem: Admit Note: Pt. admitted on a 5150 for DTS. Per 5150: You state you are better off and are hopeless to see any other solutions in your life. Currently voluntary status Interventions: Maintained a safe and structured environment, ensured contract for safety, administered meds as prescribed, provided clear and simple instructions, attempted to orient to reality, and maintained Q 15min safety checks. Response: RN received pt. asleep in bed at start of shift. Pt. awoke for breakfast. Pt. ate all meals in community room. Pt. did not need insulin coverage for breakfast as he only had 1gm of carbs. Pt. received 4 units Humolog at lunch. 1:1 done at bedside, pt. reports feeling better today, states, he got some good news about his housing situation. Pt. talked at length of the joys he had of hiking in [facility]. Pt. observed watching TV in community room and socializing with peers. Plan: Cont. to require a safe and structured environment for further stabilization. Pt. is unable to formulate a safe discharge plan at this time. If discharged he could be a risk for safety and re-hospitalization.
[2023-09-03] MEDS: naphazoline/pheniramine eye 1 DROP BOTTLE RIGHTEYE PRN (19:25)
[2023-09-03 19:30] VITALS: BP 130/73; PULSE 63; RESP 18; TEMP 98.1; O2SAT 97
[2023-09-03] MEDS: atorvastatin 20mg tablet PO SCH (20:36)
[2023-09-03] MEDS: insulin glargine (Lantus) pen - multi-dose SQ SCH (20:38)
--- NOTE | 2023-09-04 00:48 | NUR ---
Nursing Progress Note: Problem: Pt. admitted on a 5150 for DTS. Per 5150: You state you are better off and are hopeless to see any other solutions in your life. Currently voluntary status Interventions: Maintained a safe and supportive environment, ensured contract for safety, provided clear and simple instructions, maintained Accuchecks and diabetic protocol, and maintained fall precautions. Response: Patient pleasant and cooperative with care; compliant with medication. PRN eye gtts provided for c/o feeling dry. Patient denied SI, HI, A/VH; no apparent delusions expressed. He participated in HS snack and watched movies with peers prior to retiring to his room. Patient observed reading at bedside prior to bed; appears to be sleeping without difficulty. Level 1 for insulin; HS BS 157. Plan: Pt. continues to require medication adjustments and a safe and supportive environment.
[2023-09-04] MEDS: apixaban 5mg tablet PO SCH ×2 (07:22→22:14)
[2023-09-04] MEDS: metoprolol tartrate 50mg tablet PO SCH ×2 (07:22→20:00)
[2023-09-04] MEDS: sertraline 25mg tablet PO SCH (07:23)
[2023-09-04] MEDS: NUT.TX.GLUC.INTOLER,LAC-FR,SOY (GLUCERNA) 237 ML PO SCH ×3 (07:23→18:00)
[2023-09-04] MEDS: buPROPion SR 150mg tablet PO SCH ×2 (07:23→13:15)
[2023-09-04] MEDS: amLODIPine 5mg tablet PO SCH (07:23)
[2023-09-04] MEDS: naphazoline/pheniramine eye 1 DROP BOTTLE RIGHTEYE PRN (07:25)
[2023-09-04 07:36] VITALS: BP 122/50; PULSE 60; RESP 16; TEMP 97.5; O2SAT 98
--- NOTE | 2023-09-04 08:15 | NUR ---
F/u 09/03: Pt PO continues to fluctuate though more frequent 75-100% overall ~56% avg past 4 days w/ occasional snacks slight improvement per EMR. Glucerna TIDWM started WL yesterday PO 100% first two in EMR; will meet estimated needs if meal/ONS intake persists. Current diet request double salads WS; RD d/w RN regarding clarification w/ pt as pt on ONS for poor intake hx and would rather not send extra foods if pt won't eat it. 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 Per [facility] note, first metatarsal head DFU healing now callus; updated estimated needs below given eGFR 18 in EMR. LBM 09/02 per EMR. Will monitor for further nutrition intervention needs. Recommendations: 1) continue carb controlled diet; double salad WS per order 2) Glucerna TIDWM to assist meeting needs; encourage PO meals/ONS 3) Consider mag/phos levels per physician discretion; hx CKD IV eGRF 14-29 LOS 4) Bowel care per rx 5) Weekly scaled weights Addendum: 09/04/23 at [address] Amended: Links added. Addendum: 09/08/23 at [address] *CORRECTION* F/u 09/04
[2023-09-04] MEDS: insulin Lispro (HumaLOG) vial - multi-dose SQ SCH ×3 (08:27→19:04)
--- NOTE | 2023-09-04 15:57 | NUR ---
Nursing progress note: Problem: Pt. admitted on a 5150 for DTS. Per 5150: You state you are better off and are hopeless to see any other solutions in your life. Currently voluntary status Interventions: Maintained a safe and structured environment, ensured contract for safety, administered meds as prescribed, provided clear and simple instructions, and maintained Q 15min safety checks. Response: Pt. was up for vitals and breakfast. He was med compliant. Asked him how he was feeling he said, Good. Asked him About SI/HI, A/V/H, all of which he currently denies. Asked him about a discharge plan he stated, They sent something to a facility that is like a respite home, if I get to go there its only for 4-6 weeks then hopefully [place] and stay there until I can get into an assisied living place. Asked him if he would feel safe to be discharged at this time, he said no not without having somewhere to go because out there it was very hard for me, I was sleeping very little, not eating very much, people were mean to me and someone told me that they would find me and kill me. Asked him if he felt that people were out o get him out on the streets, he stated, yes, kind of. I am fearful of people being out to get me. [place] the city, it makes me nervous. I dont think I would be safe. That is why I came here in the first place, I tried to kill myself once was going to do it again so I came here. I dont think I would be safe out there. -Appearance: casually groomed in green scrubs. -Eye contact: good -Mood: calm -Affect: congruent with mood -Speech: WNL -Thought Process: intact -Thought content: focused on getting housing/placement -A/V/H: denies -SI/HI: denies but cannot contract for safety outside of the facility -ADLs: needs some assistance -Insight: fair -Judgement: poor Plan: Cont. to require a safe and structured environment for further stabilization. Pt. is unable to formulate a safe discharge plan at this time. If discharged he could be a risk for safety and re-hospitalization. Addendum: 09/04/23 at 1734 by Juvencio Coronado) RN OLIVA documentation: I have reviewed and agree with all interventions, assessments performed and documented by Brandi BAPTISTE.
[2023-09-04 19:30] VITALS: BP 144/73; PULSE 59; RESP 16; TEMP 97.2; O2SAT 97
[2023-09-04] MEDS: atorvastatin 20mg tablet PO SCH (22:14)
[2023-09-04] MEDS: insulin glargine (Lantus) pen - multi-dose SQ SCH (22:22)
--- NOTE | 2023-09-05 05:24 | NUR ---
Nursing progress note: Problem: Pt. admitted on a 5150 for DTS. Per 5150: You state you are better off and are hopeless to see any other solutions in your life. Currently voluntary status Interventions: Maintained a safe and structured environment, ensured contract for safety, administered meds as prescribed, provided clear and simple instructions, and maintained Q 15min safety checks. Response: Pt was finishing up dinner at shift change. Pt seen watch TV in day room with peers most of the evening. He is currently a level 1 on the diabetic protocol and his 2100 BS was 168. He had a pleasant demeanor and was compliant with all meds. Pt denies AVH/SI/HI. Pt slept well throughout the night with no complaints. Plan: Cont. to require a safe and structured environment for further stabilization. Pt. is unable to formulate a safe discharge plan at this time. If discharged he could be a risk for safety and re-hospitalization.
[2023-09-05 07:00] VITALS: RESP 16; O2SAT 98
[2023-09-05] MEDS: buPROPion SR 150mg tablet PO SCH ×2 (07:55→13:35)
[2023-09-05] MEDS: sertraline 25mg tablet PO SCH (07:55)
[2023-09-05] MEDS: apixaban 5mg tablet PO SCH ×2 (07:55→19:32)
[2023-09-05 08:00] VITALS: BP 133/75; PULSE 60; RESP 16; TEMP 97.1; O2SAT 98
[2023-09-05] MEDS: NUT.TX.GLUC.INTOLER,LAC-FR,SOY (GLUCERNA) 237 ML PO SCH ×3 (08:35→18:11)
[2023-09-05] MEDS: metoprolol tartrate 50mg tablet PO SCH ×2 (08:38→19:33)
[2023-09-05] MEDS: naphazoline/pheniramine eye 1 DROP BOTTLE RIGHTEYE PRN (08:39)
[2023-09-05] MEDS: amLODIPine 5mg tablet PO SCH (08:39)
[2023-09-05] MEDS: insulin Lispro (HumaLOG) vial - multi-dose SQ SCH ×3 (08:46→19:35)
--- NOTE | 2023-09-05 17:05 | NUR ---
Nursing Progress Note: Problem : Pt. is on a 5150 for DTS. Per 5150: You state you are better off and are hopeless to see any other solutions in your life. Interventions : Maintained a safe and supportive environment, ensured contract for safety, provided clear and simple instructions, maintained Accuchecks and diabetic protocol, , maintained fall precautions, and maintained Q 15min safety checks. Response : Received pt. sleeping in bed at the beginning of the shift, he awoke and greeted staff animatedly before attending breakfast in the Group Room. Pt. continues to exhibit frequent joking and laughter and makes light of most situations, appearing to minimize any mental health s/s. Pt. sat up in the Group Room throughout the entire shift playing cards with others and attended Group. He continues to deny any S/I. Pt. remained up throughout the day, and continues to be able to independently perform his ADLs. Fall precautions remain in place. Plan : Pt. continues to require a safe and supportive environment.
[2023-09-05 19:30] VITALS: BP 114/79; PULSE 59; RESP 18; TEMP 97.6; O2SAT 96
[2023-09-05] MEDS: insulin glargine (Lantus) pen - multi-dose SQ SCH (21:14)
[2023-09-05] MEDS: atorvastatin 20mg tablet PO SCH (21:17)
--- NOTE | 2023-09-06 06:04 | NUR ---
Nursing progress note: Problem: Pt. admitted on a 5150 for DTS. Per 5150: You state you are better off and are hopeless to see any other solutions in your life. Currently voluntary status Interventions: Maintained a safe and structured environment, ensured contract for safety, administered meds as prescribed, provided clear and simple instructions, and maintained Q 15min safety checks. Response: Pt was finishing up dinner at shift change. Pt seen watch TV in day room with peers most of the evening. He is still a level 1 per report and his 2100 BS was 192. Pt expressed his concern about his meals having too many carbs. He had a pleasant demeanor and was compliant with all meds and assessment. Pt denies AVH/SI/HI. Pt slept well throughout the night with no complaints. Plan: Cont. to require a safe and structured environment for further stabilization. Pt. is unable to formulate a safe discharge plan at this time. If discharged he could be a risk for safety and re-hospitalization.
[2023-09-06 07:00] VITALS: RESP 14; O2SAT 99
[2023-09-06] MEDS: apixaban 5mg tablet PO SCH ×2 (07:51→20:15)
[2023-09-06] MEDS: sertraline 25mg tablet PO SCH (07:52)
[2023-09-06] MEDS: metoprolol tartrate 50mg tablet PO SCH ×2 (07:52→20:15)
[2023-09-06] MEDS: amLODIPine 5mg tablet PO SCH (07:52)
[2023-09-06] MEDS: buPROPion SR 150mg tablet PO SCH ×2 (07:52→13:15)
[2023-09-06] MEDS: naphazoline/pheniramine eye 1 DROP BOTTLE RIGHTEYE PRN (07:55)
[2023-09-06 08:00] VITALS: BP 114/75; PULSE 55; RESP 14; TEMP 97.8; O2SAT 99
[2023-09-06 08:05] VITALS: PULSE 60
[2023-09-06] MEDS: NUT.TX.GLUC.INTOLER,LAC-FR,SOY (GLUCERNA) 237 ML PO SCH ×4 (08:42→19:06)
--- NOTE | 2023-09-06 17:06 | NUR ---
Nursing Progress Note: Problem : Pt. is on a 5150 for DTS. Per 5150: You state you are better off and are hopeless to see any other solutions in your life. Interventions : Maintained a safe and supportive environment, ensured contract for safety, provided clear and simple instructions, maintained Accuchecks and diabetic protocol, , maintained fall precautions, and maintained Q 15min safety checks. Response : Received pt. sleeping in bed at the beginning of the shift, he awoke and greeted staff animatedly continuing to exhibit frequent joking and laughter and making light of most situations. Pt. reminisces about his time in the , how he used to run and ride bikes, and how he likes to keep his mind active. Pt. reports this is why he remains up throughout the day, stating, "I can't just sit and do nothing, it drives me crazy." Pt. again sat up in the Group Room throughout the entire shift watching TV with others. Pt's blood glucose levels remain WNL and he remains on Level 1 of the diabetic protocol. Plan : Pt. continues to require a safe and supportive environment. Addendum: 09/06/23 at 1842 by Angeles Thomas RN Pt. still eating dinner when this sports book writer left, endorsed blood sugar to Noc shift so insulin protocol could be followed.
[2023-09-06 19:00] VITALS: BP 134/75; PULSE 57; RESP 14; TEMP 97.8; O2SAT 95
[2023-09-06] MEDS: atorvastatin 20mg tablet PO SCH (20:15)
[2023-09-06] MEDS: insulin glargine (Lantus) pen - multi-dose SQ SCH (20:28)
--- NOTE | 2023-09-07 05:48 | NUR ---
Nursing Progress Note: Problem : Pt. is on a 5150 for DTS. Per 5150: You state you are better off and are hopeless to see any other solutions in your life. Interventions : Maintained a safe and supportive environment, ensured contract for safety, provided clear and simple instructions, maintained Accuchecks and diabetic protocol, , maintained fall precautions, and maintained Q 15min safety checks. Response : Received Pt in room at beginning of shift. Pt frequently visited the group room watching TV and interacting with others. Pt observed to be very animated, sociable and joking with staff. No complaints noted throughout shift. Pt glucose level remained stabled, and is still on Level 1 of the diabetic protocol. Plan : Pt. continues to require a safe and supportive environment.
[2023-09-07 07:45] VITALS: RESP 18; O2SAT 99
[2023-09-07 08:00] VITALS: BP 110/71; PULSE 53; RESP 18; TEMP 97.6
[2023-09-07] MEDS: sertraline 25mg tablet PO SCH (08:19)
[2023-09-07] MEDS: buPROPion SR 150mg tablet PO SCH ×2 (08:19→13:33)
[2023-09-07] MEDS: apixaban 5mg tablet PO SCH ×2 (08:19→21:13)
[2023-09-07 10:47] VITALS: PULSE 70
[2023-09-07] MEDS: metoprolol tartrate 50mg tablet PO SCH ×2 (10:47→21:13)
[2023-09-07] MEDS: amLODIPine 5mg tablet PO SCH (10:48)
[2023-09-07] MEDS: NUT.TX.GLUC.INTOLER,LAC-FR,SOY (GLUCERNA) 237 ML PO SCH ×2 (13:00→18:43)
[2023-09-07] MEDS: insulin Lispro (HumaLOG) vial - multi-dose SQ SCH ×2 (13:34→18:55)
--- NOTE | 2023-09-07 16:21 | NUR ---
Nursing Progress Note: Problem : Pt. is on a 5150 for DTS. Per 5150: You state you are better off and are hopeless to see any other solutions in your life. Interventions : Maintained a safe and supportive environment, ensured contract for safety, provided clear and simple instructions, maintained Accuchecks and diabetic protocol, , maintained fall precautions, and maintained Q 15min safety checks. Response : Upon arrival to shift noted patient sleeping. Left sided weakness noted r/t residual deficits from old CVA. Gets himself up to personal W/C well without event. Noted to be well-groomed clean street clothes. ACHS blood glucose checks continue. Currently on a level 1 per sliding scale protocol. AM BG 127 noted, with 1 gm for breakfast. No insulin required. NOON BG 97 noted with 17 gm for lunch. 1 unit insulin given. Denies MH s/sx. Compliant with meds. Wound to left foot healing well. Open to air. Picture done today. Betadine applied every other day (qod). Next day administration is 09/08. Chose not to go outside on the patio as he reports that, I wouldnt want to come back inside. Will continue to monitor. Plan : Pt. continues to require a safe and supportive environment.
[2023-09-07 19:00] VITALS: RESP 16; O2SAT 93
[2023-09-07 20:00] VITALS: BP 113/71; PULSE 55; RESP 16; TEMP 98.6
[2023-09-07] MEDS: atorvastatin 20mg tablet PO SCH (21:13)
[2023-09-07] MEDS: insulin glargine (Lantus) pen - multi-dose SQ SCH (21:38)
--- NOTE | 2023-09-08 02:37 | NUR ---
Nursing Progress Note: Problem : Pt. is on a 5150 for DTS. Per 5150: You state you are better off and are hopeless to see any other solutions in your life. Interventions : Maintained a safe and supportive environment, ensured contract for safety, provided clear and simple instructions, maintained Accuchecks and diabetic protocol, , maintained fall precautions, and maintained Q 15min safety checks. Response : Pt received eating dinner in dining room and watching television. Pt ate 100% of dinner including his shake. Insulin administered as per protocol. Night Time BGM 140. Pt cooperative with night time medications. Pt Lopressor held due to HR 55. Pt stated his last bowel movement was tonight. Pt thought content depressed. Pt hopeful to move into assisted living. He stated his previous assisted living in [place] was terrible. He stated he received very poor service. He was inquiring on how his kidneys were presently doing. Music Worker provided most recent GFR results. Patient states that a prior doctor had indicated to him that he would be a candidate He remained in his room reading for the evening. Plan : Pt. continues to require a safe and supportive environment.
[2023-09-08 07:30] VITALS: BP 118/70; PULSE 60; RESP 16; TEMP 97; O2SAT 95
[2023-09-08] MEDS: NUT.TX.GLUC.INTOLER,LAC-FR,SOY (GLUCERNA) 237 ML PO SCH ×3 (08:00→18:36)
[2023-09-08] MEDS: metoprolol tartrate 50mg tablet PO SCH ×2 (08:02→20:29)
[2023-09-08] MEDS: sertraline 25mg tablet PO SCH (08:02)
[2023-09-08] MEDS: amLODIPine 5mg tablet PO SCH (08:02)
[2023-09-08] MEDS: apixaban 5mg tablet PO SCH ×2 (08:02→20:29)
[2023-09-08] MEDS: buPROPion SR 150mg tablet PO SCH ×2 (08:02→14:18)
[2023-09-08] MEDS: insulin Lispro (HumaLOG) vial - multi-dose SQ SCH ×2 (08:21→19:11)
--- NOTE | 2023-09-08 09:39 | NUR ---
F/u 09/08: Pt PO continues to fluctuate less frequent 100% intake though similar avg ~55% meals in EMR. PO ~79% past 14 Glucerna TID refusing 3 past 2 days overall meeting protein needs and ~85% kcal needs currently. LBM 09/07 per EMR. Will monitor further PO trends for nutrition intervention needs. Recommendations: 1) continue carb controlled diet; double salad WS per order 2) Glucerna TIDWM to assist meeting needs; encourage PO meals/ONS 3) Consider mag/phos levels per physician discretion; hx CKD IV eGRF 14-29 LOS 4) Bowel care per rx 5) Weekly scaled weights Addendum: 09/08/23 at [address] Amended: Links added.
--- NOTE | 2023-09-08 18:01 | NUR ---
Nursing Progress Note: Problem : Pt. is on a 5150 for DTS. Per 5150: You state you are better off and are hopeless to see any other solutions in your life. Interventions : Maintained a safe and supportive environment, ensured contract for safety, provided clear and simple instructions, maintained Accuchecks and diabetic protocol, , maintained fall precautions, and maintained Q 15min safety checks. Response : RN received pt. asleep in bed at start of shift. Pt. is level I on the hyperglycemic protocol and is accu checks AC/HS. Pt. was 150 in AM and 124 at lunch, and at dinner 141. 1:1 done at bedside, pt. denies SI/HI, A/V hallucinations, pt. reports his mood is so-so. Pt. reports feeling frustrated about his housing situation. Pt. observed socializing with male peers and watching TV in community room. Plan : Pt. continues to require a safe and supportive environment.
[2023-09-08 19:00] VITALS: RESP 18; O2SAT 98
[2023-09-08] MEDS: atorvastatin 20mg tablet PO SCH (20:29)
[2023-09-08] MEDS: insulin glargine (Lantus) pen - multi-dose SQ SCH (20:31)
[2023-09-08 20:52] VITALS: BP 132/82; PULSE 62; RESP 18; TEMP 97.6; O2SAT 98
--- NOTE | 2023-09-08 22:26 | NUR ---
Nursing Progress Note: Problem : Pt. is on a 5150 for DTS. Per 5150: You state you are better off and are hopeless to see any other solutions in your life. Interventions : Maintained a safe and supportive environment, ensured contract for safety, provided clear and simple instructions, maintained Accuchecks and diabetic protocol, , maintained fall precautions, and maintained Q 15min safety checks. Response : Pt received sitting in dining room and watching television. Pt ate 25% of dinner and refused his shake. Night Time BGM 150. Pt cooperative with night time medications. Pt mildly irritable in dining room due to other peers making noise while watching TV. Pt continues expectant on his new living situation. Plan : Pt. continues to require a safe and supportive environment.
[2023-09-09 07:30] VITALS: BP 128/72; PULSE 80; RESP 16; TEMP 97.8; O2SAT 97
[2023-09-09] MEDS: metoprolol tartrate 50mg tablet PO SCH ×2 (07:35→20:43)
[2023-09-09] MEDS: sertraline 25mg tablet PO SCH (07:35)
[2023-09-09] MEDS: apixaban 5mg tablet PO SCH ×2 (07:36→20:43)
[2023-09-09] MEDS: amLODIPine 5mg tablet PO SCH (07:36)
[2023-09-09] MEDS: buPROPion SR 150mg tablet PO SCH ×2 (07:36→13:40)
[2023-09-09 08:12] LABS: BASOPHILS # (AUTO) 0.1 X10'3 (0-0.2); EOSINOPHILS # (AUTO) 0.3 X10'3 (0-0.9); EOSINOPHILS % (AUTO) 4.2 % (0-6); HEMOGLOBIN 12.5 g/dl (14.0-17.9); LYMPHOCYTES # (AUTO) 1.4 X10'3 (1.1-4.8); LYMPHOCYTES % (AUTO) 20.2 % (21-51); MEAN CORPUSCULAR HEMOGLOBIN 28.1 PG (27.0-31.0); MEAN CORPUSCULAR HGB CONC 32.1 g/dL (33.0-36.5); MEAN CORPUSCULAR VOLUME 87.6 FL (78-98); MEAN PLATELET VOLUME 8.7 FL (7.4-10.4); MONOCYTES # (AUTO) 0.6 X10'3 (0-0.9); MONOCYTES % (AUTO) 9.6 % (2-12); NEUTROPHILS # (AUTO) 4.4 X10'3 (1.8-7.7); PLATELET COUNT 268 X10'3 (140-440); RED BLOOD COUNT 4.46 X10'6 (4.70-6.10); RED CELL DISTRIBUTION WIDTH 15.9 % (11.5-14.5); WHITE BLOOD COUNT 6.7 X10'3 (4.5-11.0)
[2023-09-09 08:34] LABS: ALANINE AMINOTRANSFERASE 49 U/L (12-78); ALBUMIN/GLOBULIN RATIO 0.9 (1.1-1.5); ALKALINE PHOSPHATASE 115 IU/L (46-116); ANION GAP 11 (8-16); ASPARTATE AMINO TRANSFERASE 19 U/L (10-37); BILIRUBIN,TOTAL 0.4 MG/DL (0.1-1.0); BLOOD UREA NITROGEN 67 MG/DL (7-18); CHLORIDE 106 MMOL/L (99-107); CREATININE 3.05 MG/DL (0.60-1.10); GLUCOSE 179 MG/DL (70-104); POTASSIUM 4.9 MMOL/L (3.5-5.1); SODIUM 138 MMOL/L (135-145); TOTAL CARBON DIOXIDE 21.2 MMOL/L (24-32); TOTAL PROTEIN 6.5 G/DL (6.4-8.2); eCRCL 24 ML/MIN; eGFR 21 ML/MIN
[2023-09-09] MEDS: insulin Lispro (HumaLOG) vial - multi-dose SQ SCH ×2 (13:39→19:34)
--- NOTE | 2023-09-09 18:02 | NUR ---
Nursing Progress Note: Problem : Pt. is on a 5150 for DTS. Per 5150: You state you are better off and are hopeless to see any other solutions in your life. Interventions : Maintained a safe and supportive environment, ensured contract for safety, provided clear and simple instructions, maintained Accuchecks and diabetic protocol, , maintained fall precautions, and maintained Q 15min safety checks. Response : RN received pt. asleep in bed at start of shift. Pt. is level I on the hyperglycemic protocol and is accu checks AC/HS. Pt. was 119 in AM and 138 at lunch, and at dinner 108. 1:1 done at bedside, pt. denies SI/HI, A/V hallucinations, pt. reports feeling, pretty good. Pt. observed socializing with peers and watching TV in community room. Pt. heard laughing loudly and is playful with peers and staff. Plan : Pt. continues to require a safe and supportive environment.
[2023-09-09 19:00] VITALS: BP 126/73; PULSE 63; RESP 16; TEMP 97.8; O2SAT 98
[2023-09-09] MEDS: atorvastatin 20mg tablet PO SCH (20:43)
[2023-09-09] MEDS: insulin glargine (Lantus) pen - multi-dose SQ SCH (20:46)
--- NOTE | 2023-09-09 23:05 | NUR ---
Nursing Progress Note: Problem : Pt. is on a 5150 for DTS. Per 5150: You state you are better off and are hopeless to see any other solutions in your life. Interventions : Maintained a safe and supportive environment, ensured contract for safety, provided clear and simple instructions, maintained Accuchecks and diabetic protocol, , maintained fall precautions, and maintained Q 15min safety checks. Response : Patient pleasant and cooperative with care; compliant with medication. Patient denied SI, HI, A/VH; no apparent delusions expressed. Social with staff and peers, participated in HS snack and read prior to bed; observed sleeping and does not appear to be having difficulty. Plan : Pt. continues to require a safe and supportive environment.
[2023-09-10 07:00] VITALS: RESP 16; O2SAT 100
[2023-09-10] MEDS: sertraline 25mg tablet PO SCH (07:51)
[2023-09-10] MEDS: amLODIPine 5mg tablet PO SCH (07:52)
[2023-09-10] MEDS: metoprolol tartrate 50mg tablet PO SCH ×2 (07:53→19:20)
[2023-09-10] MEDS: buPROPion SR 150mg tablet PO SCH ×2 (07:53→14:21)
[2023-09-10] MEDS: apixaban 5mg tablet PO SCH ×2 (07:53→19:16)
[2023-09-10 08:00] VITALS: BP 122/81; PULSE 56; RESP 16; TEMP 98.6; O2SAT 100
[2023-09-10] MEDS: insulin Lispro (HumaLOG) vial - multi-dose SQ SCH ×2 (08:38→19:16)
--- NOTE | 2023-09-10 17:40 | NUR ---
Nursing Progress Note: Problem : Pt. is on a 5150 for DTS. Per 5150: You state you are better off and are hopeless to see any other solutions in your life. Interventions : Maintained a safe and supportive environment, ensured contract for safety, provided clear and simple instructions, maintained Accuchecks and diabetic protocol, , maintained fall precautions, and maintained Q 15min safety checks. Response : Nurse received pt. awake at change of shift looking out his bedroom window. Pt. denies all MH symptoms. No thoughts of SI at this time. 1:1 done at bedside. Pt attended meals in the dining room. AM BS 152; 1unit of Humalog given, Lunch BS 107; no coverage needed, dinner BS 124; pt eating dinner at this time. Pt. remains at a level 1. Pt seen napping early this afternoon and socializing with peers in the community room. Plan : Pt. continues to require a safe and supportive environment.
[2023-09-10 19:00] VITALS: RESP 18; O2SAT 100
[2023-09-10 19:21] VITALS: BP 140/77; PULSE 55; RESP 18; TEMP 98.1; O2SAT 100
[2023-09-10] MEDS: atorvastatin 20mg tablet PO SCH (21:20)
[2023-09-10] MEDS: insulin glargine (Lantus) pen - multi-dose SQ SCH (21:24)
--- NOTE | 2023-09-11 02:45 | NUR ---
Nursing Progress Note: Problem : Pt. is on a 5150 for DTS. Per 5150: You state you are better off and are hopeless to see any other solutions in your life. Interventions : Maintained a safe and supportive environment, ensured contract for safety, provided clear and simple instructions, maintained Accuchecks and diabetic protocol, , maintained fall precautions, and maintained Q 15min safety checks. Response : Pt was eating dinner in the community room at change of shift. Pt seen socializing with peers and watching TV until approx. 8pm when he returned to his room and was seen reading a book. 1:1 was done at the bedside and medications were administered with no issues. Pt denies all MH symptoms. Pt was pleasant and cooperative with care. Pt received 1unit of Humalog for dinner coverage. HS blood sugar was 156, 7units of Lantus administered. Pt slept with no difficulty. Pt remains on a level 1. Plan : Pt. continues to require a safe and supportive environment.
[2023-09-11 07:00] VITALS: BP 97/57; PULSE 54; RESP 16; TEMP 97.1; O2SAT 96
[2023-09-11] MEDS: apixaban 5mg tablet PO SCH ×2 (07:50→21:20)
[2023-09-11] MEDS: sertraline 25mg tablet PO SCH (07:50)
[2023-09-11] MEDS: buPROPion SR 150mg tablet PO SCH ×2 (07:50→14:47)
[2023-09-11] MEDS: amLODIPine 5mg tablet PO SCH (08:00)
[2023-09-11] MEDS: metoprolol tartrate 50mg tablet PO SCH ×2 (08:00→20:00)
[2023-09-11] MEDS: insulin Lispro (HumaLOG) vial - multi-dose SQ SCH ×2 (08:54→19:14)
--- NOTE | 2023-09-11 11:10 | NUR ---
F/u 09/11: Pt PO still fluctuates ~53% avg meals past 4 day in EMR. Noted Glucerna TID started 09/03 w/ pt PO 100% however then cancelled 09/09 following a few refusals in EMR. Pt recently meeting estimated needs w/ prior ONS though overall still partially meeting needs this admit. RD d/w RN recommends resumption of Glucerna TIDWM if MD agreeable to assist meeting needs. LBM 09/10 per EMR. Will continue to follow. Recommendations: 1) continue carb controlled diet; double salad WS per order 2) Glucerna TIDWM to assist meeting needs; encourage PO meals/ONS 3) Consider mag/phos levels per physician discretion; hx CKD IV eGRF 14-29 LOS 4) Bowel care per rx 5) Weekly scaled weights Addendum: 09/11/23 at [address] Amended: Links added.
[2023-09-11] MEDS: NUT.TX.GLUC.INTOLER,LAC-FR,SOY (GLUCERNA) 237 ML PO SCH ×2 (13:00→18:00)
--- NOTE | 2023-09-11 17:57 | NUR ---
Nursing Progress Note: Problem : Pt. is on a 5150 for DTS. Per 5150: You state you are better off and are hopeless to see any other solutions in your life. Interventions : Maintained a safe and supportive environment, ensured contract for safety, provided clear and simple instructions, maintained Accuchecks and diabetic protocol, , maintained fall precautions, and maintained Q 15min safety checks. Response : Received patient sleeping in bed at change of shift. Patient gets out of bed shortly after this and wheels himself down to the dining room where he is social with peers. Patient's BGM are 148, 118 and 99. Patient is only eating about half of his tray and refusing foods with sugars and carbs. Mineral Mixer called today and stated that patient is not eating enough and should drink glycerna with each meal. Patient states that there are too many carbs in the food that they are serving him. Patient wants to have a welt sole layer come and talk with him, but so far that has not happened. Educated patient on eating 60 grams of carbs with each meal. Patient is in disagreement, in that he is trying to keep his blood sugar down. Patient has been pleasant and cooperative this shift. Wound care came and put Betadine on patient's toe. Plan : Pt. continues to require a safe and supportive environment.
[2023-09-11 19:00] VITALS: BP 128/68; PULSE 60; RESP 20; TEMP 98; O2SAT 97
[2023-09-11] MEDS: atorvastatin 20mg tablet PO SCH (21:20)
[2023-09-11] MEDS: insulin glargine (Lantus) pen - multi-dose SQ SCH (21:24)
--- NOTE | 2023-09-12 00:03 | NUR ---
Nursing Progress Note: Problem : Pt. is on a 5150 for DTS. Per 5150: You state you are better off and are hopeless to see any other solutions in your life. Interventions : Maintained a safe and supportive environment, ensured contract for safety, provided clear and simple instructions, maintained Accuchecks and diabetic protocol, , maintained fall precautions, and maintained Q 15min safety checks. Response :Pt. is pleasant and cooperative with care. He is social with staff and peers. Pt. spent most of the evening in the community room w/peers watching TV, and eating dinner. Pt. denies SI/HI/AH/VH. Pt. is medication compliant. Pt. returned to his room and read before going to bed. Observed and appears sleeping without difficulty. Plan : Pt. continues to require a safe and supportive environment.
[2023-09-12 07:40] VITALS: RESP 18; O2SAT 96
[2023-09-12 07:43] VITALS: BP 141/74; PULSE 59; RESP 18; TEMP 96.7; O2SAT 96
[2023-09-12] MEDS: sertraline 25mg tablet PO SCH (07:43)
[2023-09-12] MEDS: amLODIPine 5mg tablet PO SCH (07:43)
[2023-09-12] MEDS: apixaban 5mg tablet PO SCH ×2 (07:43→20:34)
[2023-09-12] MEDS: metoprolol tartrate 50mg tablet PO SCH ×2 (07:44→20:34)
[2023-09-12] MEDS: buPROPion SR 150mg tablet PO SCH ×2 (07:44→13:30)
[2023-09-12] MEDS: NUT.TX.GLUC.INTOLER,LAC-FR,SOY (GLUCERNA) 237 ML PO SCH ×3 (08:00→18:00)
--- NOTE | 2023-09-12 17:19 | NUR ---
Nursing Progress Note: Problem : Pt. is on a 5150 for DTS. Per 5150: You state you are better off and are hopeless to see any other solutions in your life. Interventions : Maintained a safe and supportive environment, ensured contract for safety, provided clear and simple instructions, maintained Accuchecks and diabetic protocol, , maintained fall precautions, and maintained Q 15min safety checks. Response : Upon arrival to shift noted patient sleeping. Upon awakening requests coffee from staff. Speech and thoughts are clear. Speaks with sarcastic humor. Denies SI, HI, and A/V H. Compliant with meds and care. Noted to be poorly groomed and unkempt hair, wearing dirty green scrubs. Noted patient removed sheets from bed. Reports having,IBS this am, suggesting he had incontinent stool episode in bed. Patient uses W/C to get around and transfers self to/from bed and bathroom. Visited with nursing students for most of the day. Tolerated meds well. ACHS protocol continues. Level 1 on hyperglycemia protocol. 0800-BG was 132 with 3 gm for breakfast. No insulin needed this morning. 1300-BG was 144 with 10 gm for lunch. No Insulin required. Spent majority of morning and afternoon socializing and playing games with cohort and nursing teacher. Noted to be having fun. Will continue to monitor. Plan : Pt. continues to require a safe and supportive environment.
[2023-09-12] MEDS: insulin Lispro (HumaLOG) vial - multi-dose SQ SCH (18:25)
[2023-09-12 19:37] VITALS: RESP 14; O2SAT 96
[2023-09-12 19:40] VITALS: BP 122/77; PULSE 69; RESP 14; TEMP 98.1; O2SAT 96
[2023-09-12] MEDS: atorvastatin 20mg tablet PO SCH (20:34)
[2023-09-12] MEDS: insulin glargine (Lantus) pen - multi-dose SQ SCH (20:37)
--- NOTE | 2023-09-13 01:36 | NUR ---
Nursing Progress Note: Problem : Pt. is on a 5150 for DTS. Per 5150: You state you are better off and are hopeless to see any other solutions in your life. Interventions : Maintained a safe and supportive environment, ensured contract for safety, provided clear and simple instructions, maintained Accuchecks and diabetic protocol, , maintained fall precautions, and maintained Q 15min safety checks. Response : Patient pleasant and cooperative with care; compliant with medication. Denied SI, HI, A/VH; no apparent delusions expressed. Patient social, watched TV and participated in HS snack prior to retiring to his room. Patient observed reading prior to bed; appears to be sleeping without difficulty. Plan : Pt. continues to require a safe and supportive environment.
[2023-09-13 07:00] VITALS: RESP 18; O2SAT 98
[2023-09-13 07:09] VITALS: BP 124/78; PULSE 58; RESP 18; TEMP 97.4; O2SAT 98
[2023-09-13] MEDS: metoprolol tartrate 50mg tablet PO SCH ×2 (07:30→20:00)
[2023-09-13] MEDS: buPROPion SR 150mg tablet PO SCH ×2 (07:31→14:04)
[2023-09-13] MEDS: amLODIPine 5mg tablet PO SCH (07:31)
[2023-09-13] MEDS: sertraline 25mg tablet PO SCH (07:31)
[2023-09-13] MEDS: apixaban 5mg tablet PO SCH ×2 (07:31→21:40)
[2023-09-13] MEDS: NUT.TX.GLUC.INTOLER,LAC-FR,SOY (GLUCERNA) 237 ML PO SCH (07:35)
[2023-09-13] MEDS: insulin Lispro (HumaLOG) vial - multi-dose SQ SCH ×2 (13:55→22:24)
--- NOTE | 2023-09-13 17:16 | NUR ---
Nursing Progress Note: [facility] Problem : Pt. is on a 5150 for DTS. Per 5150: You state you are better off and are hopeless to see any other solutions in your life. Interventions : Provided 1:1 assessment, maintained a safe and supportive environment, ensured contract for safety, provided clear and simple instructions, maintained Accuchecks and diabetic protocol, maintained fall precautions, and maintained Q 15min safety checks. Response : Patient received sleeping in his room at shift change with no s/s of distress. He was receptive to scheduled ACHS blood sugar monitoring. Pt did not require any insulin coverage after breakfast. He is pleasant and cooperative with care, receptive to scheduled medication. Pt continues to use wheelchair for transportation and self-transfers to/from bed and bathroom. He is social with other peers on the unit, noted socializing in the group room and watching television. Pt denies all MH symptoms. Does not appear to be responding to IS. Pt required 3 units of insulin coverage after lunch this shift. He continues on Level 1 hyperglycemia protocol. Plan : Pt. continues to require a safe and supportive environment.
[2023-09-13 19:00] VITALS: BP 136/78; PULSE 59; RESP 16; TEMP 97.4; O2SAT 100
[2023-09-13] MEDS: insulin glargine (Lantus) pen - multi-dose SQ SCH (21:00)
[2023-09-13] MEDS: atorvastatin 20mg tablet PO SCH (21:40)
--- NOTE | 2023-09-14 04:03 | NUR ---
RN PROGRESS NOTE: LEGAL HOLD: Voluntary for DTS PROBLEM: Client reported suicidal ideation and stated he would be "better off ". INTERVENTIONS: Maintained a safe and supportive environment, ensured contract for safety, provided clear and simple instructions, maintained Accuchecks and diabetic protocol, , maintained fall precautions, and maintained Q 15min safety checks. RESPONSE: Patient was pleasant and cooperative with care; compliant with medication. Denied SI, HI, A/VH. Social, watched TV, and participated in HS snack prior to retiring to his room. His blood sugar was 178 at 20:15. Client was concerned about his blood sugar as he has been following a Carb Controlled diet. Received 7 units of Lantus and 1 unit of Humolog. Fell asleep without difficulty. PLAN: Pt. continues to require a safe and supportive environment.
[2023-09-14 07:00] VITALS: RESP 14; O2SAT 100
[2023-09-14 08:00] VITALS: BP 121/72; PULSE 51; RESP 14; TEMP 97.8; O2SAT 100
[2023-09-14] MEDS: metoprolol tartrate 50mg tablet PO SCH ×2 (08:00→21:05)
[2023-09-14] MEDS: buPROPion SR 150mg tablet PO SCH ×2 (08:13→13:01)
[2023-09-14] MEDS: sertraline 25mg tablet PO SCH (08:14)
[2023-09-14] MEDS: apixaban 5mg tablet PO SCH ×2 (08:14→20:54)
[2023-09-14] MEDS: amLODIPine 5mg tablet PO SCH (08:18)
[2023-09-14] MEDS: insulin Lispro (HumaLOG) vial - multi-dose SQ SCH ×3 (08:52→18:45)
--- NOTE | 2023-09-14 15:13 | NUR ---
Nursing Progress Note: Problem : Pt. is on a 5150 for DTS. Per 5150: You state you are better off and are hopeless to see any other solutions in your life. Interventions : 1:1 assessment, establishment of rapport, therapeutic conversation, active listening, ensured contract for safety, medication administration/education/monitoring, blood sugar monitoring an insulin administration per protocol, wound measurements, provided distraction, redirection, positive reinforcement, and maintained Q15 minute safety checks. Response : Pt was up for breakfast, FS BG this am was 127, pt did not require insulin coverage at breakfast. Pt's fingertips are bruised and sore. Pt was cooperative with morning meds. Metoprolol was held as HR was 51. Fingerstick before lunch was 169. Pt was given 2 units of Humalog per protocol. Diabetic ulcer left foot is nearly resolved, open to air. Picture taken and placed in the chart. Pt expressed feeling anxious regarding pending discharge. He had been waiting for his [facility] to come through so he can hopefully go to a medical respite from 30 days. From there he thinks he will probably go to [facility] and expresses anxiety over this as he reports he is a private person and he will have to share a room. He is in a w/c and has IBS so has to be close to the bathroom. Pt pleasant, cooperative, and cheerful with staff. He makes frequent jokes. Pt denies SI/HI/AH/VH. Plan : Pt. continues to require a safe and supportive environment.
[2023-09-14 19:00] VITALS: RESP 19; O2SAT 100
[2023-09-14 20:00] VITALS: BP 125/82; PULSE 57; RESP 19; TEMP 96.6; O2SAT 100
[2023-09-14] MEDS: atorvastatin 20mg tablet PO SCH (20:54)
[2023-09-14] MEDS: insulin glargine (Lantus) pen - multi-dose SQ SCH (20:56)
[2023-09-14 21:05] VITALS: PULSE 60
[2023-09-14 22:49] VITALS: BP 125/82; PULSE 57; RESP 19; TEMP 96.6; O2SAT 100
--- NOTE | 2023-09-15 00:26 | NUR ---
RN PROGRESS NOTE: LEGAL HOLD: Voluntary for DTS PROBLEM: Client reported suicidal ideation and stated he would be "better off ". INTERVENTIONS: Maintained a safe and supportive environment, ensured contract for safety, provided clear and simple instructions, maintained Accuchecks and diabetic protocol, , maintained fall precautions, and maintained Q 15min safety checks. RESPONSE: Patient received in day room eating dinner. Pt mood is depressed but remains lively with his joking interaction with marketing copywriter. He remains pleasant. He is cooperative with his care. He is compliant with medication. He reports discomfort with finger stick. He states he wishes he can use his finger stick device but has no refills left. No suicidal ideation. Pt isolated for the evening and read his book His night time blood sugar was 184. Client was surprised that his blood sugar was high despite eating minimally for dinner. Patient was reminded of his dinner contents and he acknowledged he ate more than he remembered. Pt fell asleep without difficulty. PLAN: Pt. continues to require a safe and supportive environment. Addendum: 09/15/23 at 0604 by Elvin Vazquez LVN, LVN Pt was upset this morning d/t his roommate leaving light on and not flushing toilet.
[2023-09-15] MEDS: naphazoline/pheniramine eye 1 DROP BOTTLE RIGHTEYE PRN (06:02)
[2023-09-15 07:34] VITALS: BP 136/77; PULSE 55; RESP 16; TEMP 97.5; O2SAT 100
[2023-09-15] MEDS: apixaban 5mg tablet PO SCH ×2 (07:53→21:27)
[2023-09-15] MEDS: buPROPion SR 150mg tablet PO SCH ×2 (07:53→14:14)
[2023-09-15] MEDS: amLODIPine 5mg tablet PO SCH (07:53)
[2023-09-15] MEDS: metoprolol tartrate 50mg tablet PO SCH ×2 (07:53→21:28)
[2023-09-15] MEDS: sertraline 25mg tablet PO SCH (07:54)
--- NOTE | 2023-09-15 09:01 | NUR ---
Spoke to Levon at [facility] (ph#[phone]) to check on bed availability. He reported he had not heard from [facility] in a while. Will encouraged [facility] to call and check in. KEMAR Duncan
--- NOTE | 2023-09-15 09:53 | NUR ---
F/u 09/15: Pt PO continues to fluctuate regressed ~45% avg meals past 4 days not meeting needs. Glucerna restarted 09/11 though pt refused all so stopped 09/[address] d/w RN who reports pt complains about meals though confirms complaints are not consistent w/ intake hx. For example, pt reports gets "junk" only WS yet ate ~75% dinner last night. RN return TC; pt reports decreased appetite from inactivity not intentionally trying to lose wt loves salads but dislikes carrots/corn/potatoes since "raise blood sugar". Pt receiving double salads WS per diet order despite inconsistent meals intake. Will send executive pastry chef salad WL to honor preference- dietary notified. Per physical assessment, L first toe DFU almost fully healed; updated estimated needs below given eGFR 21 09/09. LBM 09/13 per EMR. Will monitor for further nutrition intervention needs. Recommendations: 1) continue carb controlled diet; double salad WS per order 2) encourage PO intake meals 3) Consider mag/phos levels per physician discretion; hx CKD IV eGRF 14-29 LOS 4) Bowel care per rx 5) Weekly scaled weights Addendum: 09/15/23 at [address] Amended: Links added.
[2023-09-15] MEDS: insulin Lispro (HumaLOG) vial - multi-dose SQ SCH ×2 (14:13→18:42)
--- NOTE | 2023-09-15 14:33 | NUR ---
ASYA TC: Pt enjoyed muck miner blasting salad requests w/ dinner sandy. Will send muck miner blasting salad BIDLD instead of two small side salads WS per current diet order-dietary and RN notified. Addendum: 09/15/23 at [address] Amended: Links added.
--- NOTE | 2023-09-15 15:30 | NUR ---
Nursing Progress Note: Problem: Pt. is on a 5150 for DTS. Per 5150: You state you are better off and are hopeless to see any other solutions in your life. Interventions: Provided 1:1 assessment with therapeutic communication and active listening, medication administration/education/monitoring, blood sugar monitoring an insulin administration per protocol, wound measurements, provided positive reinforcement, and maintained Q15 minute safety checks. Response: Pt was up for breakfast, FS BG this am was 120, pt did not require insulin coverage at breakfast. Fingerstick before lunch was 109. Pt was given 1 unit of Humalog per protocol. Diabetic ulcer left foot is nearly resolved, open to air. Pt talked about his IBS this morning. He states it has been "flaring up the past three days." He shared he does not know what causes it. Talked to Agustin flour tester. [employer] salads ordered for both lunches and dinners. Pt was happy with his lunch and looks forward to dinner. Pt denies SI/HI/AH/VH. Plan: Pt. continues to require a safe and supportive environment.
[2023-09-15 19:48] VITALS: BP 113/77; PULSE 65; RESP 16; TEMP 97.7; O2SAT 98
[2023-09-15] MEDS: atorvastatin 20mg tablet PO SCH (21:27)
[2023-09-15] MEDS: insulin glargine (Lantus) pen - multi-dose SQ SCH (21:31)
--- NOTE | 2023-09-16 03:52 | NUR ---
RN PROGRESS NOTE: LEGAL HOLD: Voluntary for DTS PROBLEM: Client reported suicidal ideation and stated he would be "better off ". INTERVENTIONS: Maintained a safe and supportive environment, ensured contract for safety, provided clear and simple instructions, maintained Accuchecks and diabetic protocol, , maintained fall precautions, and maintained Q 15min safety checks. RESPONSE: Patient received in day room eating dinner. Pt watching football game. Patient irritable but cooperative with designer writer. No S/I noted. Pt provides meal ticket to designer writer. Pt received 2 units Humalog per protocol. Pt watches movies in recreation room for remainder of evening. Pt reads book at bedtime in room. He is compliant with medication. Night time blood sugar was 190. Pt fell asleep without difficulty. PLAN: Pt. continues to require a safe and supportive environment.
[2023-09-16] MEDS: metoprolol tartrate 50mg tablet PO SCH ×2 (08:00→21:04)
[2023-09-16] MEDS: buPROPion SR 150mg tablet PO SCH ×2 (08:09→13:00)
[2023-09-16] MEDS: sertraline 25mg tablet PO SCH (08:10)
[2023-09-16] MEDS: apixaban 5mg tablet PO SCH ×2 (08:10→21:04)
[2023-09-16] MEDS: amLODIPine 5mg tablet PO SCH (08:10)
[2023-09-16 08:36] VITALS: BP 130/76; PULSE 52; RESP 18; TEMP 97.4; O2SAT 99
[2023-09-16] MEDS: insulin Lispro (HumaLOG) vial - multi-dose SQ SCH ×2 (08:36→18:39)
--- NOTE | 2023-09-16 17:45 | NUR ---
NURSING PROGRESS NOTE: LEGAL HOLD: Voluntary for DTS PROBLEM: Client reported suicidal ideation and stated he would be "better off ". INTERVENTIONS: Maintained a safe and supportive environment, ensured contract for safety, provided clear and simple instructions, maintained Accuchecks and diabetic protocol, , maintained fall precautions, and maintained Q 15min safety checks. RESPONSE: Upon arrival to shift noted patient awake and up in W/C. Noted to be cantankerous, its been a fuck morning. 0820 paged re: AM meds r/t low HR 52. Dr. Alejandro resident psychiatrist orders to hold AM Metoprolol r/t low HR under 60. Parameters added to order. No PRNs required. Patient mood improved as day went on. Patient has a sarcastic communication style at baseline. Uses W/C to get around with no assist needed. Seen in dining room most of day watching TV and visiting with cohort. ACHS BG monitoring continues. Remains on a level 1 per hyperglycemic protocol. Reports frustration regarding CC diet r/t it having more than 60 carbs on tray. Reports back itches. Upon assessment noted no rash. Applied cream to back and scratched where he c/o itching with success. Will continue to monitor. PLAN: Pt. continues to require a safe and supportive environment.
[2023-09-16 19:00] VITALS: BP 136/73; PULSE 66; RESP 18; TEMP 97.8; O2SAT 97
[2023-09-16] MEDS: atorvastatin 20mg tablet PO SCH (21:04)
[2023-09-16] MEDS: insulin glargine (Lantus) pen - multi-dose SQ SCH (21:06)
--- NOTE | 2023-09-17 01:48 | NUR ---
Nursing Progress Note: Problem : Pt. is on a 5150 for DTS. Per 5150: You state you are better off and are hopeless to see any other solutions in your life. Interventions : Maintained a safe and supportive environment, ensured contract for safety, provided clear and simple instructions, maintained Accuchecks and diabetic protocol, , maintained fall precautions, and maintained Q 15min safety checks. Response : Patient pleasant and cooperative with care; compliant with medication. Patient denied SI, HI, A/VH; no apparent delusions expressed. Patient social and participated in HS snack prior to retiring to his room; observed reading before bed and does not appear to be having difficulty sleeping. Plan : Pt. continues to require a safe and supportive environment.
[2023-09-17] MEDS: sertraline 25mg tablet PO SCH (07:33)
[2023-09-17] MEDS: buPROPion SR 150mg tablet PO SCH ×2 (07:33→13:15)
[2023-09-17] MEDS: apixaban 5mg tablet PO SCH ×2 (07:33→20:40)
[2023-09-17] MEDS: amLODIPine 5mg tablet PO SCH (07:34)
[2023-09-17] MEDS: metoprolol tartrate 50mg tablet PO SCH ×2 (07:34→20:40)
[2023-09-17] MEDS: polyvinyl alcohol ophthalmic drops 15ml bottle EACHEYE PRN (07:39)
[2023-09-17 07:45] VITALS: BP 127/65; PULSE 63; RESP 12; TEMP 97.3; O2SAT 99
[2023-09-17 07:50] VITALS: RESP 12; O2SAT 99
[2023-09-17] MEDS: insulin Lispro (HumaLOG) vial - multi-dose SQ SCH ×3 (08:17→18:42)
--- NOTE | 2023-09-17 16:21 | NUR ---
Nursing Progress Note: Problem : Pt. is on a 5150 for DTS. Per 5150: You state you are better off and are hopeless to see any other solutions in your life. Interventions : Maintained a safe and supportive environment, ensured contract for safety, provided clear and simple instructions, maintained Accuchecks and diabetic protocol, , maintained fall precautions, and maintained Q 15min safety checks. Response : Upon arrival to shift noted patient awake and up in W/C. Dr. Hamilton at bedside early this am. Patient in better mood as he reported he slept better since his old roommate changed rooms. Uses W/C to get around with no assist needed. Compliant with meds. No PRNs given. ACHS BG monitoring continues. Remains on a level 1 per hyperglycemic protocol. At breakfast BG was 172, 5 gm carbs and 1 unit insulin required. Lunch time BG was 103, 13 gm carbs and 1 unit insulin given. Betadine continues to right foot performed. Next application to be complete on 09/19. Patient reports his interest in going [facility] when there becomes availability. Denies SI, HI, or A/V H. Will continue to monitor Plan : Pt. continues to require a safe and supportive environment.
[2023-09-17 19:34] VITALS: BP 127/77; PULSE 62; RESP 16; TEMP 97.4; O2SAT 97
[2023-09-17] MEDS: atorvastatin 20mg tablet PO SCH (20:39)
[2023-09-17] MEDS: insulin glargine (Lantus) pen - multi-dose SQ SCH (20:44)
--- NOTE | 2023-09-17 23:47 | NUR ---
Nursing Progress Note: Problem : Pt. is on a 5150 for DTS. Per 5150: You state you are better off and are hopeless to see any other solutions in your life. Interventions : Maintained a safe and supportive environment, ensured contract for safety, provided clear and simple instructions, maintained Accuchecks and diabetic protocol, , maintained fall precautions, and maintained Q 15min safety checks. Response : Patient pleasant and cooperative with care; compliant with medication. Patient denied SI, HI, A/VH; no apparent delusions expressed. Patient socialized with peers/staff and watched TV in the community room. Participated in HS snack and read in his room prior to bed; observed sleeping and does not appear to be having difficulty. Plan : Pt. continues to require a safe and supportive environment.
[2023-09-18 08:00] VITALS: BP 137/57; PULSE 63; RESP 12; TEMP 97.5; O2SAT 100
[2023-09-18] MEDS: amLODIPine 5mg tablet PO SCH (08:42)
[2023-09-18] MEDS: metoprolol tartrate 50mg tablet PO SCH ×2 (08:42→20:00)
[2023-09-18] MEDS: apixaban 5mg tablet PO SCH ×2 (08:43→21:34)
[2023-09-18] MEDS: sertraline 25mg tablet PO SCH (08:43)
[2023-09-18] MEDS: buPROPion SR 150mg tablet PO SCH ×2 (08:43→13:20)
[2023-09-18] MEDS: insulin Lispro (HumaLOG) vial - multi-dose SQ SCH (08:50)
--- NOTE | 2023-09-18 09:35 | NUR ---
CASE MANAGEMENT Received a call from Jose M Green at [facility] (Jose M Green) who reported that they will have a bed available by September 26 for Pt. Renata Galicia LCSW
--- NOTE | 2023-09-18 16:36 | NUR ---
Nursing Progress Note: Problem: Pt. admitted on a 5150 for DTS. Per 5150: You state you are better off and are hopeless to see any other solutions in your life. Currently voluntary status Interventions: Maintained a safe and structured environment, ensured contract for safety, administered meds as prescribed, provided clear and simple instructions, and maintained Q 15min safety checks. Response: Pt. was up for vitals and breakfast. He was med compliant. He is friendly and cooperative with care. He spends the shift watching TV and engaging with select peers and staff. He cont. to be able to contract for safety within the facility but would not be able to if discharged at this time with no place to go. 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 Does state that when on the streets he does fear that people are out to get him which causes him the paranoia and the SI. -Appearance: casually groomed in green scrubs, in a WC, balding hair -Eye contact: good -Mood: calm -Affect: bright -Speech: WNL -Thought Process: intact -Thought content: focused on going to respite home -A/V/H: denies at this time -SI/HI: denies HI, contracts for safety while in facility, cannot if discharged -ADLs: independent with some assistance -Insight: fair -Judgement: poor Plan: Cont. to require a safe and structured environment for further stabilization. Pt. is unable to formulate a safe discharge plan outside of the respite home and cannot contract for safety outside of the facility. If discharged he could be a risk for safety and re-hospitalization.
[2023-09-18 19:30] VITALS: BP 110/70; PULSE 57; RESP 16; TEMP 98.6; O2SAT 100
[2023-09-18] MEDS: insulin glargine (Lantus) pen - multi-dose SQ SCH (21:33)
[2023-09-18] MEDS: atorvastatin 20mg tablet PO SCH (21:34)
--- NOTE | 2023-09-19 05:12 | NUR ---
Nursing Progress Note: Problem: Pt. admitted on a 5150 for DTS. Per 5150: You state you are better off and are hopeless to see any other solutions in your life. Currently voluntary status Interventions: Maintained a safe and structured environment, ensured contract for safety, administered meds as prescribed, provided clear and simple instructions, and maintained Q 15min safety checks. Response: Pt is pleasant and socializing with peers in dayroom at change of shift. Pt jokes around frequently with staff and is always smiling and laughing. Pt denies AVH/SI/HI and states that his day was great. Pt compliant with all medications and agreeable to treatment. Had no complaints during the night. Plan: Cont. to require a safe and structured environment for further stabilization. Pt. is to be discharged to respite care per report at shift change.
[2023-09-19 08:00] VITALS: BP 141/74; PULSE 60; RESP 14; TEMP 96.8; O2SAT 98
[2023-09-19] MEDS: buPROPion SR 150mg tablet PO SCH ×2 (08:16→13:11)
[2023-09-19] MEDS: apixaban 5mg tablet PO SCH ×2 (08:16→21:04)
[2023-09-19] MEDS: sertraline 25mg tablet PO SCH (08:16)
[2023-09-19] MEDS: amLODIPine 5mg tablet PO SCH (08:16)
[2023-09-19] MEDS: metoprolol tartrate 50mg tablet PO SCH ×2 (08:19→21:04)
[2023-09-19] MEDS: insulin Lispro (HumaLOG) vial - multi-dose SQ SCH ×3 (08:31→19:07)
--- NOTE | 2023-09-19 15:43 | NUR ---
F/u 09/19: Pt PO continues to fluctuate ~60% avg carb controlled meals w/ snacks and store clerk cashier salad BID meeting 100% kcal and ~71% protein estimated needs not including snacks. LBM 09/18 per EMR. Will continue to follow.monitor for further nutrition intervention needs. Recommendations: 1) continue carb controlled diet; store clerk cashier salad BIDLD per pt preferences 2) encourage PO intake meals 3) Consider mag/phos levels per physician discretion; hx CKD IV eGRF 14-29 LOS 4) Bowel care per rx 5) Weekly scaled weights Addendum: 09/19/23 at [address] Amended: Links added.
--- NOTE | 2023-09-19 16:46 | NUR ---
Nursing Progress Note: Problem: Pt. admitted on a 5150 for DTS. Per 5150: You state you are better off and are hopeless to see any other solutions in your life. Currently voluntary status Interventions: Maintained a safe and structured environment, ensured contract for safety, administered meds as prescribed, provided clear and simple instructions, and maintained Q 15min safety checks. Response: No noted/reported behavioral changed. Pt. was up for vitals and breakfast. He was med compliant. He is friendly and cooperative with care. He spends the shift watching TV and engaging with select peers and staff. He cont. to be able to contract for safety within the facility but would not be able to if discharged at this time with no place to go. Asked him about DC planning he said, I found out that I should be going to the respite home next week. Asked how he felt about that he said, Good, not really sure until I get there though. -Appearance: casually groomed in green scrubs, in a WC, balding hair -Eye contact: good -Mood: calm -Affect: bright -Speech: WNL -Thought Process: intact -Thought content: focused on going to respite home -A/V/H: denies at this time -SI/HI: denies HI, contracts for safety while in facility, cannot if discharged -ADLs: independent with some assistance -Insight: fair -Judgement: poor Plan: Cont. to require a safe and structured environment for further stabilization. Pt. is unable to formulate a safe discharge plan outside of the respite home and cannot contract for safety outside of the facility. If discharged he could be a risk for safety and re-hospitalization.
[2023-09-19 19:30] VITALS: BP 137/68; PULSE 73; RESP 18; TEMP 97.4; O2SAT 98
[2023-09-19] MEDS: atorvastatin 20mg tablet PO SCH (21:03)
[2023-09-19] MEDS: insulin glargine (Lantus) pen - multi-dose SQ SCH (21:08)
[2023-09-19] MEDS: hydrocortisone 1% cream 28gm TP SCH (21:09)
--- NOTE | 2023-09-20 05:14 | NUR ---
Nursing Progress Note: Problem: Pt. admitted on a 5150 for DTS. Per 5150: You state you are better off and are hopeless to see any other solutions in your life. Currently voluntary status Interventions: Maintained a safe and structured environment, ensured contract for safety, administered meds as prescribed, provided clear and simple instructions, and maintained Q 15min safety checks. Response: Pt is pleasant and socializing with peers in dayroom at change of shift. Pt jokes around frequently with staff and is continually laughing and smiling. Pt denies AVH/SI/HI and states that his day was ehhh it was a day. 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 Pt states that his BM today had firmed up from yesterdays diarrhea. Pt compliant with all medications and agreeable to treatment. Had no complaints during the night. Plan: Cont. to require a safe and structured environment for further stabilization. Pt. is to be discharged to respite care per report at shift change.
[2023-09-20 08:00] VITALS: BP 121/67; PULSE 84; RESP 14; TEMP 97.1; O2SAT 98
[2023-09-20] MEDS: hydrocortisone 1% cream 28gm TP SCH ×2 (08:00→20:00)
[2023-09-20] MEDS: apixaban 5mg tablet PO SCH ×2 (08:04→20:49)
[2023-09-20] MEDS: metoprolol tartrate 50mg tablet PO SCH ×2 (08:05→20:50)
[2023-09-20] MEDS: amLODIPine 5mg tablet PO SCH (08:05)
[2023-09-20] MEDS: buPROPion SR 150mg tablet PO SCH ×2 (08:06→14:31)
[2023-09-20] MEDS: sertraline 25mg tablet PO SCH (08:06)
[2023-09-20] MEDS: insulin Lispro (HumaLOG) vial - multi-dose SQ SCH (09:53)
--- NOTE | 2023-09-20 16:25 | NUR ---
Nursing Progress Note: Problem: Pt. admitted on a 5150 for DTS. Per 5150: You state you are better off and are hopeless to see any other solutions in your life. Currently voluntary status Interventions: Maintained a safe and structured environment, ensured contract for safety, administered meds as prescribed, provided clear and simple instructions, and maintained Q 15min safety checks. Response: Patient was polite and sociable at beginning of shift. Patient blood sugar this morning was 176 and after eating breakfast he was given 1 unit of insulin. Patient spent majority of shift in the community room and rec room watching tv ad socializing with others. Patient was cooperative with all medication. Patient blood sugar was checked again before lunch and read 109 after eating lunch he required 0 units of insulin. Patient is looking forward to getting out of here. Plan: Cont. to require a safe and structured environment for further stabilization. Pt. is to be discharged to respite care per report at shift change.
[2023-09-20 19:30] VITALS: BP 132/75; PULSE 61; RESP 18; TEMP 97.7; O2SAT 98
[2023-09-20] MEDS: insulin glargine (Lantus) pen - multi-dose SQ SCH (20:48)
[2023-09-20] MEDS: atorvastatin 20mg tablet PO SCH (20:50)
--- NOTE | 2023-09-21 04:40 | NUR ---
Nursing Progress Note: Problem: Pt. admitted on a 5150 for DTS. Per 5150: You state you are better off and are hopeless to see any other solutions in your life. Currently voluntary status Interventions: Maintained a safe and structured environment, ensured contract for safety, administered meds as prescribed, provided clear and simple instructions, and maintained Q 15min safety checks. Response: Pt was in the dining room watching TV at beginning of shift with peers. Pt has a pleasant demeanor and is cooperative. Pt denies AVH/SI/HI and was compliant with all medications and agreeable to treatment. Pt had no complaints throughout the night. Plan: Cont. to require a safe and structured environment for further stabilization. Pt. is to be discharged to respite care per report at shift change.
[2023-09-21 07:00] VITALS: BP 118/66; PULSE 60; RESP 16; TEMP 97.6; O2SAT 94
[2023-09-21] MEDS: sertraline 25mg tablet PO SCH (07:46)
[2023-09-21] MEDS: buPROPion SR 150mg tablet PO SCH ×2 (07:46→14:00)
[2023-09-21] MEDS: amLODIPine 5mg tablet PO SCH (07:46)
[2023-09-21] MEDS: apixaban 5mg tablet PO SCH ×2 (07:46→20:44)
[2023-09-21] MEDS: metoprolol tartrate 50mg tablet PO SCH ×2 (07:47→20:43)
[2023-09-21] MEDS: hydrocortisone 1% cream 28gm TP SCH ×2 (07:47→20:00)
--- NOTE | 2023-09-21 17:48 | NUR ---
Nursing Progress Note: Problem: Pt. admitted on a 5150 for DTS. Per 5150: You state you are better off and are hopeless to see any other solutions in your life. Currently voluntary status Interventions: Maintained a safe and structured environment, ensured contract for safety, administered meds as prescribed, provided clear and simple instructions, and maintained Q 15min safety checks. Response: Received patient sleeping in bed at change of shift. Patient gets himself out of bed and into his wheelchair. Patient waiting for coffee, then became cheerful and social with another peer. Patient sat in the group room until 10:00 when visitors came. Patient requested to shave and RN observed patient shaving. Patient was quite chatty this morning. He was talking about his assisted living in [facility], and how terrible it was. Patient states that he is leaving Friday to a medical respite care facility until he can be placed in an assisted care living situation. Patient states that he lived in the [facility] for 20 years, and it has been a hard adjustment to live in society with all his rights being taken away. He is looking forward towards more independence. Patients blood glucose level was 107, 125, 113. Plan: Cont. to require a safe and structured environment for further stabilization. Pt. is to be discharged to respite care per report at shift change.
[2023-09-21 19:00] VITALS: RESP 18; O2SAT 98
[2023-09-21] MEDS: insulin Lispro (HumaLOG) vial - multi-dose SQ SCH (19:11)
[2023-09-21 19:55] VITALS: BP 130/84; PULSE 63; RESP 18; TEMP 97.6; O2SAT 98
[2023-09-21] MEDS: insulin glargine (Lantus) pen - multi-dose SQ SCH (20:40)
[2023-09-21] MEDS: atorvastatin 20mg tablet PO SCH (20:42)
--- NOTE | 2023-09-22 02:40 | NUR ---
Nursing Progress Note: Problem: Pt. admitted on a 5150 for DTS. Per 5150: You state you are better off and are hopeless to see any other solutions in your life. Currently voluntary status Interventions: Maintained a safe and structured environment, ensured contract for safety, administered meds as prescribed, provided clear and simple instructions, and maintained Q 15min safety checks. Response: Pt up in group room eating at start of shift. Patient gets himself out of bed and into his wheelchair. Pt is level one on our DM Protocol. Covered 2 units insulin for BS of 113 and Carb intake of 37 grams. Lantus continues at 7 units at HS. Pt is pleasant and cooperative. Pt believes he will be discharged on Friday. He cant remember the name of the place. Patients blood glucose level 201 at HS. Plan: Cont. to require a safe and structured environment for further stabilization. Pt. is to be discharged to respite care per report at shift change.
[2023-09-22 07:00] VITALS: RESP 18; O2SAT 98
[2023-09-22] MEDS: buPROPion SR 150mg tablet PO SCH ×2 (07:52→13:26)
[2023-09-22] MEDS: sertraline 25mg tablet PO SCH (07:52)
[2023-09-22] MEDS: apixaban 5mg tablet PO SCH ×2 (07:52→19:51)
[2023-09-22] MEDS: metoprolol tartrate 50mg tablet PO SCH ×2 (07:54→19:51)
[2023-09-22] MEDS: amLODIPine 5mg tablet PO SCH (07:54)
[2023-09-22] MEDS: hydrocortisone 1% cream 28gm TP SCH ×2 (07:56→19:55)
[2023-09-22 08:00] VITALS: BP 110/75; PULSE 60; RESP 18; TEMP 97; O2SAT 98
[2023-09-22] MEDS: insulin Lispro (HumaLOG) vial - multi-dose SQ SCH ×3 (08:46→19:50)
--- NOTE | 2023-09-22 16:16 | NUR ---
Nursing Progress Note: Problem: Pt. admitted on a 5150 for DTS. Per 5150: You state you are better off and are hopeless to see any other solutions in your life. Currently voluntary status Interventions: Maintained a safe and structured environment, ensured contract for safety, administered meds as prescribed, provided clear and simple instructions, and maintained Q 15min safety checks. Response: Nurse received pt. awake at change of shift, sitting in his wheelchair. Pt A&OX4. 1:1 done at bedside and medications administered with no issues. Pt denies all MH symptoms. Pt. attended meals in the community room. Pt is friendly and cooperative with care. Pt interviewed this afternoon for respite care and possible placement with [facility]. AM BS 168, pt moved to a level II, 2 units of Humalog administered. Lunch BS 92, 1 unit of Humalog administered. Plan: Cont. to require a safe and structured environment for further stabilization. Pt. is to be discharged to respite care.
[2023-09-22 19:00] VITALS: RESP 18; O2SAT 98
[2023-09-22] MEDS: atorvastatin 20mg tablet PO SCH (19:47)
[2023-09-22 20:00] VITALS: BP 135/72; PULSE 94; RESP 18; TEMP 97.5; O2SAT 98
[2023-09-22] MEDS: insulin glargine (Lantus) pen - multi-dose SQ SCH (21:11)
--- NOTE | 2023-09-23 03:33 | NUR ---
Nursing Progress Note: Nghia Problem: Pt. admitted on a 5150 for DTS. Per 5150: You state you are better off and are hopeless to see any other solutions in your life. Currently voluntary status Interventions: Maintained a safe and structured environment, ensured contract for safety, administered meds as prescribed, provided clear and simple instructions, and maintained Q 15min safety checks. Response: This nurse resumed care for patient at 1830. Patient observed in common room watching TV and eating dinner. Patient received 2 units of Humalog after dinner consuming 22 grams. Patient denied all symptoms. Patient continues to be cooperative and friendly with staff and peers. Patient states hes being placed this coming Friday. Patient currently in bed with eyes closed. No obvious distress to note. Plan: Cont. to require a safe and structured environment for further stabilization. Pt. is to be discharged to respite care.
[2023-09-23 07:00] VITALS: BP 108/62; PULSE 50; RESP 16; TEMP 97.6; O2SAT 99
[2023-09-23] MEDS: metoprolol tartrate 50mg tablet PO SCH ×2 (08:00→21:56)
[2023-09-23] MEDS: hydrocortisone 1% cream 28gm TP SCH ×2 (08:00→20:00)
[2023-09-23] MEDS: amLODIPine 5mg tablet PO SCH (08:00)
[2023-09-23] MEDS: apixaban 5mg tablet PO SCH ×2 (08:02→21:54)
[2023-09-23] MEDS: sertraline 25mg tablet PO SCH (08:03)
[2023-09-23] MEDS: buPROPion SR 150mg tablet PO SCH ×2 (08:03→13:23)
[2023-09-23] MEDS: insulin Lispro (HumaLOG) vial - multi-dose SQ SCH ×3 (08:19→19:49)
[2023-09-23 11:16] LABS: ALBUMIN 3.2 G/DL (3.4-5.0); ANION GAP 9 (8-16); BLOOD UREA NITROGEN 88 MG/DL (7-18); BUN/CREATININE RATIO 28.4 (10.0-20.0); CALCIUM 8.9 MG/DL (8.5-10.1); CHLORIDE 108 MMOL/L (99-107); GLUCOSE 162 MG/DL (70-104); SODIUM 137 MMOL/L (135-145); TOTAL CARBON DIOXIDE 19.6 MMOL/L (24-32); eCRCL 24 ML/MIN; eGFR 21 ML/MIN
--- NOTE | 2023-09-23 17:41 | NUR ---
Nursing Progress Note: Problem: Pt. admitted on a 5150 for DTS. Per 5150: You state you are better off and are hopeless to see any other solutions in your life. Currently voluntary status Interventions: Maintained a safe and structured environment, ensured contract for safety, administered meds as prescribed, provided clear and simple instructions, and maintained Q 15min safety checks. Response: Patient sitting in line in the hallway waiting in the coffee line. Patient is pleasant and loves to tease RN while obtaining blood glucose readings. Patient takes medications without incident. Patient stays in the community room until approximately 13:30 and then he went and laid down for a few hours. Patient is in the dining room watching t.v. with peers, laughing with his friends. Patient is looking forward to discharging. Denies all MH symptoms. Blood glucose levels were 160, 145, 98. Plan: Cont. to require a safe and structured environment for further stabilization. Pt. is to be discharged to respite care.
[2023-09-23 19:30] VITALS: BP 141/87; PULSE 64; RESP 18; TEMP 97.2; O2SAT 95
[2023-09-23] MEDS: atorvastatin 20mg tablet PO SCH (21:53)
[2023-09-23] MEDS: insulin glargine (Lantus) pen - multi-dose SQ SCH (21:59)
--- NOTE | 2023-09-24 05:43 | NUR ---
Nursing Progress Note: Problem: Pt. admitted on a 5150 for DTS. Per 5150: You state you are better off and are hopeless to see any other solutions in your life. Currently voluntary status Interventions: Maintained a safe and structured environment, ensured contract for safety, administered meds as prescribed, provided clear and simple instructions, and maintained Q 15min safety checks. Response: Pt was in dining room eating dinner at the beginning of shift and stayed in the dining room until bedtime socializing with peers and watching TV. Pt was in a positive mood joking and laughing with peers and staff. Pt did not fall asleep till later than usual and told staff that he had slept a lot during the day. On assessment pt denies AVH/SI/HI and was compliant with all of his medication besides refusing the cortisone cream stating it doesnt work for him. Pt consistently has a pleasant demeanor and his agreeable to treatment. Blood glucose level 105 tonight. Plan: Cont. to require a safe and structured environment for further stabilization. Pt. is to be discharged to respite care.
[2023-09-24 07:00] VITALS: BP 120/67; PULSE 60; RESP 16; TEMP 98.7; O2SAT 99
[2023-09-24] MEDS: hydrocortisone 1% cream 28gm TP SCH ×2 (08:00→20:00)
[2023-09-24] MEDS: metoprolol tartrate 50mg tablet PO SCH ×2 (08:29→22:09)
[2023-09-24] MEDS: sertraline 25mg tablet PO SCH (08:29)
[2023-09-24] MEDS: apixaban 5mg tablet PO SCH ×2 (08:29→22:09)
[2023-09-24] MEDS: amLODIPine 5mg tablet PO SCH (08:29)
[2023-09-24] MEDS: buPROPion SR 150mg tablet PO SCH ×2 (08:29→14:39)
[2023-09-24] MEDS: insulin Lispro (HumaLOG) vial - multi-dose SQ SCH ×3 (09:06→19:35)
--- NOTE | 2023-09-24 11:16 | NUR ---
F/u 09/24: Pt's PO intake continues fluctuating on carbohydrate controlled with average intake of 43% x 11 meals including double meat for lunch and dinner as well as a sushi chef salad BIDLD. PO intake met ~70% of estimated kcals and 100% of estimated protein needs though suspect is higher. Pt continues to be stable since admit. LBM 09/23 per EMR. Will continue to follow. Recommendations: 1) continue carb controlled diet; double meat BIDLD and sushi chef salad BIDLD per pt preferences 2) encourage PO intake meals 3) Consider mag/phos levels per physician discretion; hx CKD IV eGRF 14-29 LOS 4) Bowel care per rx 5) Weekly scaled weight Addendum: 09/24/23 at [address] Amended: Links added.
--- NOTE | 2023-09-24 18:32 | NUR ---
Nursing Progress Note: Problem: Pt. admitted on a 5150 for DTS. Per 5150: You state you are better off and are hopeless to see any other solutions in your life. Currently voluntary status Interventions: Maintained a safe and structured environment, ensured contract for safety, administered meds as prescribed, provided clear and simple instructions, and maintained Q 15min safety checks. Response: Received patient sleeping in bed. Patient awakens and waits for his coffee in the hallway. Patient then goes into the group room, where he socializes with peers. Patient is on protocol, so careful dietary carbs are counted and insulin administered. After breakfast, a female peer was in the group room and they played cards for a couple of hours and were laughing and having a good time. Patient at approximately 1:30 attempted to go to sleep, but was interrupted by his IBS and had diarrhea. Two people from the [facility] came and signed him up for [facility]. Patient was upset after their visit, so patient requested to speak to RAY Yanez. Renata came and talked to him and he was calmer. Patient states that he needs medical information, phone numbers and internet access to apply for the medical respite at [facility], as his previous application never went through. Patient sat in the group room watching t.v. this afternoon. Blood glucose levels were 168, 104, 128. Plan: Cont. to require a safe and structured environment for further stabilization. Pt. is to be discharged to respite care.
[2023-09-24 19:30] VITALS: BP 127/68; PULSE 61; RESP 16; TEMP 98.1; O2SAT 99
[2023-09-24] MEDS: atorvastatin 20mg tablet PO SCH (22:10)
[2023-09-24] MEDS: insulin glargine (Lantus) pen - multi-dose SQ SCH (22:13)
--- NOTE | 2023-09-25 02:25 | NUR ---
Nursing Progress Note: Problem: Pt. admitted on a 5150 for DTS. Per 5150: You state you are better off and are hopeless to see any other solutions in your life. Currently voluntary status Interventions: Maintained a safe and structured environment, ensured contract for safety, administered meds as prescribed, provided clear and simple instructions, and maintained Q 15min safety checks. Response: Pt was in dining room eating dinner at the beginning of shift and stayed in the dining room until bedtime socializing with peers and watching TV. Pt was in a positive mood joking and laughing with peers and staff as usual. On assessment pt denies AVH/SI/HI and was compliant with all of his medication besides refusing the cortisone cream stating it doesnt work for him. Pt consistently has a pleasant demeanor and is agreeable to treatment. Blood glucose level 163 tonight. He is level 2 per day shift report. Plan: Cont. to require a safe and structured environment for further stabilization. Pt. is to be discharged to respite care.
[2023-09-25 07:30] VITALS: BP 135/71; PULSE 48; RESP 18; TEMP 97.6; O2SAT 100
[2023-09-25] MEDS: apixaban 5mg tablet PO SCH ×2 (07:52→21:13)
[2023-09-25] MEDS: buPROPion SR 150mg tablet PO SCH ×2 (07:52→13:09)
[2023-09-25] MEDS: sertraline 25mg tablet PO SCH (07:52)
[2023-09-25] MEDS: amLODIPine 5mg tablet PO SCH (07:52)
[2023-09-25] MEDS: hydrocortisone 1% cream 28gm TP SCH ×2 (08:00→20:00)
[2023-09-25] MEDS: metoprolol tartrate 50mg tablet PO SCH ×2 (08:00→21:13)
[2023-09-25] MEDS: insulin Lispro (HumaLOG) vial - multi-dose SQ SCH ×2 (08:41→14:07)
--- NOTE | 2023-09-25 17:31 | NUR ---
Nursing Progress Note: Problem: Pt. admitted on a 5150 for DTS. Per 5150: You state you are better off and are hopeless to see any other solutions in your life. Currently voluntary status Interventions: Maintained a safe and structured environment, ensured contract for safety, administered meds as prescribed, provided clear and simple instructions, and maintained Q 15min safety checks. Response: RN received pt. asleep in bed at start of shift. Pt. awoke and took all medications and ate breakfast. 1:1 done at bedside, pt. denies all psych symptoms. Pt. states, Im being discharged tomorrow and Im so glad! Pt. observed socializing with peers and watching TV in the community room. Pt. becomes jovial at times, loudly talking and laughing with peers. Blood glucose levels were 148, 108, 131 Plan: Cont. to require a safe and structured environment for further stabilization. Pt. is to be discharged to respite care.
[2023-09-25 19:30] VITALS: BP 152/74; PULSE 66; RESP 18; TEMP 97.6; O2SAT 95
[2023-09-25] MEDS ORDERED: SERT-432 PO (20:23)
[2023-09-25] MEDS ORDERED: BUPR-72 PO (20:23)
[2023-09-25] MEDS ORDERED: APIX5TAB3 PO (20:23)
[2023-09-25] MEDS ORDERED: PANT-47 PO (20:23)
[2023-09-25] MEDS ORDERED: LANTUS SQ (20:23)
[2023-09-25] MEDS ORDERED: NICO-907 BC (20:23)
[2023-09-25] MEDS ORDERED: ATOR80TA PO (20:23)
[2023-09-25] MEDS ORDERED: AMLO-708 PO (20:23)
[2023-09-25] MEDS ORDERED: POLY15DR13 EACHEYE (20:23)
[2023-09-25] MEDS ORDERED: METO50TA16 PO (20:23)
[2023-09-25] MEDS ORDERED: insulin glargine (Lantus) pen - multi-dose SQ SCH (21:00)
[2023-09-25] MEDS: atorvastatin 20mg tablet PO SCH (21:12)
--- NOTE | 2023-09-26 04:03 | NUR ---
Nursing Progress Note: Problem: Pt. admitted on a 5150 for DTS. Per 5150: You state you are better off and are hopeless to see any other solutions in your life. Currently voluntary status Interventions: Maintained a safe and structured environment, ensured contract for safety, administered meds as prescribed, provided clear and simple instructions, and maintained Q 15min safety checks. Response: Pt was in dining room eating dinner at the beginning of shift and stayed in the dining room until bedtime socializing with peers and watching TV. Pt was in a positive mood joking and laughing with peers and staff as usual. On assessment pt denies AVH/SI/HI and was compliant with all of his medication besides refusing the cortisone cream stating it doesnt work for him. Pt consistently has a pleasant demeanor and is agreeable to treatment. Blood glucose level 133 tonight. He is level 2 per day shift report. Lantus order was changed from 7-8 units. Plan: Cont. to require a safe and structured environment for further stabilization. Pt. is to be discharged to respite care.
[2023-09-26] MEDS: metoprolol tartrate 50mg tablet PO SCH (07:28)
[2023-09-26] MEDS: buPROPion SR 150mg tablet PO SCH ×2 (07:28→13:01)
[2023-09-26] MEDS: amLODIPine 5mg tablet PO SCH (07:28)
[2023-09-26] MEDS: apixaban 5mg tablet PO SCH (07:28)
[2023-09-26] MEDS: sertraline 25mg tablet PO SCH (07:29)
[2023-09-26 07:30] VITALS: BP 118/76; PULSE 63; RESP 16; TEMP 97.2; O2SAT 98
[2023-09-26] MEDS: hydrocortisone 1% cream 28gm TP SCH (07:34)
[2023-09-26 10:17] LABS: ALANINE AMINOTRANSFERASE 76 U/L (12-78); ALBUMIN 3.2 G/DL (3.4-5.0); ALKALINE PHOSPHATASE 119 IU/L (46-116); ANION GAP 9 (8-16); ASPARTATE AMINO TRANSFERASE 25 U/L (10-37); BILIRUBIN,TOTAL 0.4 MG/DL (0.1-1.0); BLOOD UREA NITROGEN 79 MG/DL (7-18); BUN/CREATININE RATIO 27.1 (10.0-20.0); CHLORIDE 104 MMOL/L (99-107); CREATININE 2.91 MG/DL (0.60-1.10); GLUCOSE 231 MG/DL (70-104); POTASSIUM 5.2 MMOL/L (3.5-5.1); SODIUM 134 MMOL/L (135-145); TOTAL CARBON DIOXIDE 21.2 MMOL/L (24-32); TOTAL PROTEIN 6.5 G/DL (6.4-8.2); eCRCL 25 ML/MIN; eGFR 22 ML/MIN
--- NOTE | 2023-09-26 13:00 | NUR ---
RN paged hospitalist regarding pt.'s elevated K+ 5.2 and decreased NA+ of 134
--- NOTE | 2023-09-26 14:30 | NUR ---
RN sent second page to hospitalist group number regarding pt.'s elevated K+ 5.2 and decreased NA+ of 134
--- NOTE | 2023-09-26 14:58 | NUR ---
DISCHARGE NOTE: Pt. discharged to [facility]. Pt. picked up by replaced by [facility] roll off driver. Pt. discharged with all belongings and valuables. RN went over all discharge paperwork with pt. Pt. verbalized understanding and signed all paperwork including firearms restriction, emergency phone numbers including 911, and medications and f/u plan. Pt. denies SI/HI, A/V hallucinations. Pt. is A&Ox4 and in no apparent distress.
== END 2023-09-26 15:11 | disposition home or self-care (01) | DRG 885 ==
LOC: ER 16:35 → ADULT MH 08-07 14:05
PROVIDERS: ADMIT Psychiatry & Neurology Psychiatry; ATTEND Psychiatry & Neurology Psychiatry
DX: F33.3 Major depressive disorder, recurrent, severe with psychotic symptoms (principal); N18.4 Chronic kidney disease, stage 4 (severe); N17.9 Acute kidney failure, unspecified; R45.851 Suicidal ideations; I69.354 Hemiplegia and hemiparesis following cerebral infarction affecting left non-dominant side; E87.20 Acidosis, unspecified; E78.00 Pure hypercholesterolemia, unspecified; E11.40 Type 2 diabetes mellitus with diabetic neuropathy, unspecified; E11.319 Type 2 diabetes mellitus with unspecified diabetic retinopathy without macular edema; E11.22 Type 2 diabetes mellitus with diabetic chronic kidney disease; E11.621 Type 2 diabetes mellitus with foot ulcer; L97.509 Non-pressure chronic ulcer of other part of unspecified foot with unspecified severity; F41.9 Anxiety disorder, unspecified; E66.3 Overweight; E86.9 Volume depletion, unspecified; K21.9 Gastro-esophageal reflux disease without esophagitis; F29 Unspecified psychosis not due to a substance or known physiological condition; Z20.822 Contact with and (suspected) exposure to COVID-19; M62.40 Contracture of muscle, unspecified site; I48.91 Unspecified atrial fibrillation; I12.9 Hypertensive chronic kidney disease with stage 1 through stage 4 chronic kidney disease, or unspecified chronic kidney disease; F17.200 Nicotine dependence, unspecified, uncomplicated; Z79.01 Long term (current) use of anticoagulants; Z79.4 Long term (current) use of insulin; Z79.899 Other long term (current) drug therapy; Z91.148 Patient's other noncompliance with medication regimen for other reason; Z99.3 Dependence on wheelchair; Z80.8 Family history of malignant neoplasm of other organs or systems; Z68.31 Body mass index [BMI] 31.0-31.9, adult
CPT/HCPCS: 36415; 76770; 80048; 80053; 80061; 80305; 80320; 81001; 82570; 82948; 83036; 83880; 84133; 84156; 84300; 84443; 85025; 86704; 86705; 87081; 87207; 87340; 87811; 93005; 99285; A4649; A6212; A6223; A6250; A6258; A6266; A6446; A6449; J1644; J1815; J3490; J7030; J7070

== ENCOUNTER 2023-10-26 17:37 | Emergency (ER) | payer OTHER, MEDICARE, MEDICAID ==
[~2023-10-26] VITALS: Ht 172.7 cm; Wt 95.9 kg
[~2023-10-26 17:37] MED LIST changes: +AMLO-708 PO; -AMLO5TAB16 PO; +BUPR-72 PO; -BUPR150T8 PO; -BUSP5TAB26 PO; -CARB-226 OP; -CITA20TA28 PO; -INSU100V9 SQ; +LANTUS SQ; -METO25TA6 PO; +METO50TA16 PO; +NICO-907 BC; +POLY15DR13 EACHEYE; +SERT-432 PO; -alogliptin PO; -jardiance PO; -lisinopril PO
[2023-10-26 18:17] VITALS: TEMP 98.5
[2023-10-26] MEDS ORDERED: acetaminophen 325mg tablet PO ONE (19:25)
[2023-10-26 19:58] VITALS: BP 131/71; PULSE 65; RESP 16; O2SAT 95
== END 2023-10-26 21:50 | disposition home or self-care (01) ==
LOC: ER 17:37
DX: S30.0XXA Contusion of lower back and pelvis, initial encounter (principal); X58.XXXA Exposure to other specified factors, initial encounter; Y93.89 Activity, other specified; Y92.89 Other specified places as the place of occurrence of the external cause; Y99.8 Other external cause status
CPT/HCPCS: 72131; 72192; 99284